=== PATIENT | female | born 1935 | race Caucasian/White ===

== ENCOUNTER → 2016-08-17 | Outpatient (CLI) | payer BC, OTHER ==
[2016-08-17 15:00] LABS: ABSOLUTE EOSINOPHILS # (AUTO) 0.2 10^3/uL (0.0-0.6); ABSOLUTE LYMPHOCYTES (AUTO) 1.3 10^3/uL (0.5-4.7); ABSOLUTE MONOCYTES (AUTO) 0.5 10^3/uL (0.1-1.4); ABSOLUTE NEUT (AUTO) 3.3 10^3/uL (1.7-8.2); BASOPHILS % (AUTO) 0.4 % (0-2); HEMATOCRIT 34.9 % (36.0-47.0); HEMOGLOBIN 11.9 g/dL (12.0-15.5); HGB HCT DIFFERENCE 0.8; LYMPHOCYTES % (AUTO) 24.6 % (13-45); MEAN CORPUSCULAR HEMOGLOBIN 28.4 pg (27.0-33.4); MEAN CORPUSCULAR VOLUME 84 fl (80-97); MONOCYTES % (AUTO) 9.5 % (3-13); RED BLOOD COUNT 4.18 10^6/uL (3.72-5.28); RED CELL DISTRIBUTION WIDTH 16.8 % (11.5-14.0); SEGMENTED NEUTROPHILS % (AUTO) 62.5 % (42-78); WHITE BLOOD COUNT 5.4 10^3/uL (4.0-10.5)
[2016-08-17 15:52] LABS: ERYTHROCYTE SEDIMENTATION RATE 19 mm/hr (0-30)
== END ==
LOC: OD 13:33
PROVIDERS: ATTEND Specialist
DX: R10.9 Unspecified abdominal pain (principal); D50.9 Iron deficiency anemia, unspecified
CPT/HCPCS: 36415; 85025; 85652; 86140

== ENCOUNTER → 2017-05-28 | Outpatient (CLI) | payer BC, OTHER ==
[2017-05-28 10:00] LABS: ALANINE AMINOTRANSFERASE 27 U/L (9-52); ALBUMIN 4.5 g/dL (3.5-5.0); ALKALINE PHOSPHATASE 127 U/L (38-126); ANION GAP 13 (5-19); ASPARTATE AMINO TRANSFERASE 26 U/L (14-36); BILIRUBIN,DIRECT 0.3 mg/dL (0.0-0.4); BILIRUBIN,TOTAL 0.6 mg/dL (0.2-1.3); BLOOD UREA NITROGEN 10 mg/dL (7-20); CALCIUM 9.8 mg/dL (8.4-10.2); CARBON DIOXIDE 29 mmol/L (22-30); CHLORIDE 95 mmol/L (98-107); CREATININE RESULT 0.78 mg/dL (0.52-1.25); Direct HDL 78 mg/dL (>40); GLUCOSE 96 mg/dL (75-110); POTASSIUM 5.4 mmol/L (3.6-5.0); SODIUM 137.2 mmol/L (137-145); TOTAL PROTEIN 7.7 g/dL (6.3-8.2); TRIGLYCERIDES 116 mg/dL (<150)
[2017-05-28 10:11] LABS: DIRECT LDL 120 mg/dL (<100)
== END ==
LOC: OD 08:12
PROVIDERS: ATTEND Internal Medicine
DX: I10 Essential (primary) hypertension (principal); E78.5 Hyperlipidemia, unspecified; R53.83 Other fatigue
CPT/HCPCS: 36415; 80053; 80061; 84443

== ENCOUNTER 2017-12-20 10:09 | Day surgery (SDC) | payer BC, OTHER ==
[~2017-12-20 10:09] MED LIST: BUPIVACAINE HCL 0.75% INJ/PF (7.5 MG/1 ML) 10 ML SDV OD PRN; CHONDR SU A NA/HYALUR INTRAOC KIT (SURGICARE) ONE; EPINEPHRINE INJ/PF 1 MG/1 ML AMPULE ONE; KETOROLAC TROMETHAMINE 0.45% 4 DROP/0.4 ML DROPERETTE OD PRN; LIDOCAINE 1% INJ-PF (10 MG/ML) 30 ML SDV ONE; LIDOCAINE 4% INJ/PF (40 MG/ML) 5 ML AMPUL OD PRN
[2017-12-20] MEDS: TROPICAMIDE 1% OPH SOLN 3 ML OD PRN ×3 (10:35→10:55)
[2017-12-20] MEDS: CYCLOPENTOLATE 0.2%/PHENYLEPHRINE 1% OPH SOLN 2 ML OD PRN ×3 (10:35→10:55)
[2017-12-20] MEDS: TETRACAINE HCL 0.5% OPH SOLN 0.6 ML DROPERETTE OD PRN ×2 (10:36→10:56)
[2017-12-20] MEDS: BESIFLOXACIN HCL 0.6% OPH SUSP 5 ML BOTTLE OD PRN ×3 (10:36→11:38)
[2017-12-20] MEDS ORDERED: FENTANYL CITRATE INJ/PF 100 MCG/2 ML AMPUL ONE (10:42)
[2017-12-20] MEDS ORDERED: MIDAZOLAM 2 MG/2 ML INJ ONE (10:42)
[2017-12-20] MEDS ORDERED: METOPROLOL TARTRATE PF/INJ 5 MG/5 ML SDV IV ONE (12:19)
--- NOTE | 2017-12-20 17:15 | [facility] OPERATIVE REPORT E ---
[facility] Operative Report NAME: CAROL CHAVEZ AGE: 82Y DATE OF SURGERY: 12/20/2017 ROOM: PREOPERATIVE DIAGNOSIS: Cataract right eye. POSTOPERATIVE DIAGNOSIS: Cataract right eye. OPERATION: Phacoemulsification with posterior chamber and intraocular lens, right eye. SURGEON: RELL SALEH M.D. ANESTHESIA: Topical with MAC. INDICATIONS FOR SURGERY: Difficulty seeing faces. Best corrected visual acuity 20/60. PROCEDURE: The patient was brought to the Operating Room and placed on the operative table. Following tetracaine drops, topical anesthesia was administered. This consisted of instrument wipe pledgets soaked in a solution of 4% Xylocaine mixed with 0.75% Marcaine in a 1:2 ratio. A 2 x 1 cm pledget was placed in the superior fornix. A 1 x 1 cm pledget was placed in the inferior fornix. The eye was patched shut for 5 minutes. The patch was removed. The eye was sterilely prepped and draped in the usual manner. Lid speculum was placed in the eye. The pledgets were removed. 4-0 black silk sutures were placed around the superior and the inferior rectus muscles to be used as traction. A conjunctival peritomy was made at the 10 o'clock position. Hemostasis was obtained with bipolar cautery. A posterior limbal groove was created using a crescent knife and dissected anteriorly towards the cornea. A sharp point blade was used to create a paracentesis site at the 2 o'clock position. A 2.4 mm keratome was used to enter the anterior chamber through the groove. Viscoelastic was injected into the anterior chamber. An anterior capsulotomy was performed using Utrata forceps in a capsulorrhexis fashion. Hydrodissection and hydrodelineation were performed. Phacoemulsification was performed in hvehxi-[id number]-gcreczu technique. A total of 1.08 minutes phaco time was used. Following this, the I/A unit was used to remove residual cortex. Viscoelastic was injected into the capsular bag. Intraocular lens model [id number], 22.5 diopters, serial number [id number] was placed in the capsular bag. The I/A unit was used to remove residual viscoelastic. The wound was seen to be watertight under high and low pressure, and no sutures were placed. The intraocular lens was well centered. The pressure was adjusted in the eye to normal pressure. The 4-0 black silk sutures and lid speculum were removed. The eye was shielded after Besivance drops were placed. The patient tolerated the procedure well and was sent to the Recovery Room in good condition. DICTATING PHYSICIAN: RELL SALEH M.D. [id number] PHY#: [id number] ID: [id number] JOB#: [id number] ACCT: [id number] cc:RELL SALEH M.D. >
--- NOTE | 2017-12-20 17:31 | [facility] DISCHARGE SUMMARY E ---
[facility] Discharge Summary NAME: CAROL CHAVEZ AGE: 82Y ADMITTED: 12/20/2017 DISCHARGED: FINAL DIAGNOSIS: HOSPITAL COURSE: Ms. Chavez is an 82-year-old lady who underwent uneventful cataract extraction with intraocular lens implant, right eye on 12/20/2017. She was discharged to home. She was instructed to resume preoperative medications; take Tylenol as needed for discomfort; keep her eyes shielded; to use Besivance, Durezol, and Ilevro at 3 p.m. and 8 p.m. To follow up in my office in 1 day. DICTATING PHYSICIAN: RELL SALEH M.D. [id number] PHY#: [id number] ID: [id number] JOB#: [id number] ACCT: [id number] cc:RELL SALEH M.D. >
== END 2017-12-20 12:30 | disposition home or self-care (01) ==
LOC: SC 10:09
PROVIDERS: ATTEND Ophthalmology
DX: H25.13 Age-related nuclear cataract, bilateral (principal); H35.3131 Nonexudative age-related macular degeneration, bilateral, early dry stage; H01.002 Unspecified blepharitis right lower eyelid; H01.005 Unspecified blepharitis left lower eyelid; H43.812 Vitreous degeneration, left eye; I10 Essential (primary) hypertension; E78.00 Pure hypercholesterolemia, unspecified; M19.90 Unspecified osteoarthritis, unspecified site; J43.9 Emphysema, unspecified; N32.9 Bladder disorder, unspecified; Z79.899 Other long term (current) drug therapy; Z79.51 Long term (current) use of inhaled steroids; Z88.2 Allergy status to sulfonamides; Z91.041 Radiographic dye allergy status
CPT/HCPCS: 66984; V2632; J2250; J3490 ×5; J0171; J3010; 142

== ENCOUNTER → 2018-01-03 | Outpatient (CLI) | payer BC, OTHER ==
[2018-01-03 12:06] LABS: ABSOLUTE LYMPHOCYTES (AUTO) 1.3 10^3/uL (0.5-4.7); ABSOLUTE MONOCYTES (AUTO) 0.5 10^3/uL (0.1-1.4); ABSOLUTE NEUT (AUTO) 3.2 10^3/uL (1.7-8.2); BASOPHILS % (AUTO) 0.8 % (0-2); HEMATOCRIT 37.8 % (36.0-47.0); HEMOGLOBIN 12.5 g/dL (12.0-15.5); LYMPHOCYTES % (AUTO) 26.1 % (13-45); MEAN CORPUSCULAR HEMOGLOBIN 25.6 pg (27.0-33.4); MEAN CORPUSCULAR HGB CONC 33.1 g/dL (32.0-36.0); MEAN CORPUSCULAR VOLUME 78 fl (80-97); MONOCYTES % (AUTO) 9.3 % (3-13); PLATELET COUNT 350 10^3/uL (150-450); RED BLOOD COUNT 4.87 10^6/uL (3.72-5.28); SEGMENTED NEUTROPHILS % (AUTO) 62.8 % (42-78); TOTAL CELLS COUNTED % (AUTO) 100 %
[2018-01-03 12:33] LABS: ALANINE AMINOTRANSFERASE 25 U/L (9-52); ALBUMIN 4.2 g/dL (3.5-5.0); ALKALINE PHOSPHATASE 108 U/L (38-126); ANION GAP 13 (5-19); ASPARTATE AMINO TRANSFERASE 26 U/L (14-36); BILIRUBIN,DIRECT 0.2 mg/dL (0.0-0.4); BILIRUBIN,TOTAL 0.5 mg/dL (0.2-1.3); BLOOD UREA NITROGEN 12 mg/dL (7-20); CALCIUM 9.3 mg/dL (8.4-10.2); CARBON DIOXIDE 29 mmol/L (22-30); CHLORIDE 92 mmol/L (98-107); GLUCOSE 107 mg/dL (75-110); POTASSIUM 4.9 mmol/L (3.6-5.0); SODIUM 134.3 mmol/L (137-145); TOTAL PROTEIN 7.5 g/dL (6.3-8.2)
== END ==
LOC: OD 11:12
PROVIDERS: ATTEND Internal Medicine
DX: I48.91 Unspecified atrial fibrillation (principal); E78.5 Hyperlipidemia, unspecified; R53.83 Other fatigue
CPT/HCPCS: 36415; 80053; 83735; 84443; 85025

== ENCOUNTER 2018-01-08 16:02 | Inpatient (IN) | payer BC, OTHER ==
[2018-01-08 16:22] LABS: ABSOLUTE LYMPHOCYTES (AUTO) 1.6 10^3/uL (0.5-4.7); ABSOLUTE MONOCYTES (AUTO) 0.6 10^3/uL (0.1-1.4); ABSOLUTE NEUT (AUTO) 5.5 10^3/uL (1.7-8.2); BASOPHILS % (AUTO) 0.4 % (0-2); EOSINOPHILS % (AUTO) 0.6 % (0-6); HEMOGLOBIN 11.5 g/dL (12.0-15.5); LYMPHOCYTES % (AUTO) 20.7 % (13-45); MEAN CORPUSCULAR HEMOGLOBIN 25.5 pg (27.0-33.4); MEAN CORPUSCULAR HGB CONC 32.8 g/dL (32.0-36.0); MEAN CORPUSCULAR VOLUME 78 fl (80-97); PLATELET COUNT 350 10^3/uL (150-450); RED BLOOD COUNT 4.51 10^6/uL (3.72-5.28); RED CELL DISTRIBUTION WIDTH 15.9 % (11.5-14.0); SEGMENTED NEUTROPHILS % (AUTO) 70.3 % (42-78); TOTAL CELLS COUNTED % (AUTO) 100 %; WHITE BLOOD COUNT 7.8 10^3/uL (4.0-10.5)
--- NOTE | 2018-01-08 16:30 | ER Document Report ---
ED General - General Stated Complaint: RESPIRATORY DISTRESS Time Seen by Provider: 01/08/18 16:24 Notes: Patient brought in by EMS for shortness of breath and difficulty breathing. Family says this started last night and worse this morning. She has had this in the past. Has been diagnosed with atrial fibrillation. Also recently given a prescription for amoxicillin for bronchitis. Had her medications adjusted a week ago and put on metoprolol and Eliquis. Family says that her heart rate was going very fast in her doctor's office. Patient says she is experiencing nausea but not vomiting. No cough or cold or recent URI symptoms, even though she has a prescription for amoxicillin for URI. While on the way in, patient received sublingual nitro and a nitro patch which is still in place. EMS had her on CPAP on the way here. She has a history of hypertension. No history of congestive heart failure. TRAVEL OUTSIDE OF THE [place] IN LAST 30 DAYS: No - Related Data Allergies/Adverse Reactions: Iodinated Contrast- Oral and IV Dye [IV Dye, Iodine Containing] Allergy (Severe , Verified 01/08/18 16:25) Anaphylaxis Shellfish * [Shellfish] Allergy (Severe, Verified 01/08/18 16:25) Anaphylaxis walnut Allergy (Severe, Verified 01/08/18 16:25) Anaphylaxis Sulfa (Sulfonamide Antibiotics) Allergy (Intermediate, Verified 01/08/18 16:25) Hives meperidine HCl [From Demerol] Allergy (Mild, Verified 01/08/18 16:25) AMS acetaminophen [Acetaminophen] Adverse Reaction (Intermediate, Verified 01/08/18 16:25) nervousness Past Medical History - Social History Smoking Status: Never Smoker Family History: Reviewed & Not Pertinent - Past Medical History Cardiac Medical History: Reports: Hx Atrial Fibrillation - Paroxysmal, Hx Hypertension Denies: Hx Coronary Artery Disease, Hx Heart Attack Pulmonary Medical History: Reports: Hx Bronchitis, Hx COPD Renal/ Medical History: Reports: Hx Kidney Stones Musculoskeletal Medical History: Reports Hx Arthritis - Takes tramadol for joint pain Past Surgical History: Reports: Hx Hysterectomy, Hx Whipple, Other - Cataract surgery about 3 weeks ago. - Immunizations Hx Diphtheria, Pertussis, Tetanus Vaccination: Yes Hx Pneumococcal Vaccination: 06/20/07 Review of Systems - Review of Systems Notes: REVIEW OF SYSTEMS: CONSTITUTIONAL : Denies fever. EENT: Denies eye, ear, nose or mouth or throat pain or other symptoms. CARDIOVASCULAR: Denies chest pain. RESPIRATORY: See HPI. Regular rhythm, sinus rhythm on monitor, at this time. GASTROINTESTINAL: Denies abdominal pain or nausea, vomiting, or diarrhea. GENITOURINARY: Denies difficulty or painful urinating, urinary frequency, blood in urine. MUSCULOSKELETAL: Denies back or neck pain. Denies joint pain or swelling. SKIN: Denies rash or skin lesions. NEUROLOGICAL: Denies LOC or altered mental status. Denies headache. Denies sensory loss or motor deficits. ALL OTHER SYSTEMS REVIEWED AND NEGATIVE. Physical Exam - Vital signs Vitals: Pulse Ox 85 L 01/08/18 16:02 Interpretation: Normal - Notes Notes: PHYSICAL EXAMINATION: GENERAL: Patient arrives on CPAP. Vital signs show an elevated blood pressure for which the patient is already had sublingual nitro and a nitro patch applied. Other vital signs are normal except that when on room air, her O2 sat decompensates. She was placed back on BiPAP. HEAD: Atraumatic, normocephalic. EYES: Pupils equal round and reactive to light, extraocular movements intact. ENT: oropharynx clear without exudates. Moist mucous membranes. NECK: Normal range of motion, supple. LUNGS: Breath sounds clear and equal bilaterally. Just a few scattered rhonchi bilaterally. No labored respirations. No tight wheezes. HEART: Regular rate and rhythm without murmurs. ABDOMEN: Soft, nontender. No guarding or rebound. No masses. BACK: No tenderness throughout entire back. EXTREMITIES: Normal range of motion without pain. +2 pitting edema of the shins bilaterally. Negative Homans. NEUROLOGICAL: Normal speech, normal gait. Normal sensory, motor, and reflex exams. Awake, alert, and oriented x3. Cranial nerves normal. PSYCH: Normal mood, normal affect. SKIN: Warm, dry, no rashes. Course - Vital Signs Vital signs: Temp Pulse Resp BP Pulse Ox 21 H 179/91 H 97 01/08/18 18:47 01/08/18 18:47 01/08/18 18:47 - Laboratory Result Diagrams: 01/08/18 16:08 01/08/18 16:08 Laboratory results interpreted by me: 01/08/18 01/08/18 01/08/18 16:08 16:08 16:08 Hgb 11.5 L Hct 35.0 L MCV 78 L MCH 25.5 L RDW 15.9 H Sodium 118.3 L* Chloride 81 L Est GFR ( Amer) 53 L Est GFR (Non-Af Amer) 44 L Glucose 152 H AST 55 H ALT 74 H NT-Pro-B Natriuret Pep 671 H - Diagnostic Test Radiology results interpreted by me: 01/08/18 18:24 Chest x-ray shows airspace disease which radiologist says could be pneumonia or could be congestive heart failure. - EKG Interpretation by Me EKG shows normal: Sinus rhythm Rate: Normal Rhythm: NSR Critical Care Note - Critical Care Note Total time excluding time spent on procedures (mins): 40 Discharge - Discharge Clinical Impression: Respiratory insufficiency/failure, Hyponatremia, Hypertension, Hypoxia Condition: Serious Disposition: ADMITTED INPATIENT Admitting Provider: Hospitalist Unit Admitted: [facility]
[2018-01-08 16:36] LABS: ALANINE AMINOTRANSFERASE 74 U/L (9-52); ALBUMIN 3.8 g/dL (3.5-5.0); ALKALINE PHOSPHATASE 115 U/L (38-126); ANION GAP 15 (5-19); ASPARTATE AMINO TRANSFERASE 55 U/L (14-36); BILIRUBIN,DIRECT 0.2 mg/dL (0.0-0.4); BILIRUBIN,TOTAL 0.5 mg/dL (0.2-1.3); BLOOD UREA NITROGEN 20 mg/dL (7-20); CALCIUM 8.4 mg/dL (8.4-10.2); CARBON DIOXIDE 22 mmol/L (22-30); CHLORIDE 81 mmol/L (98-107); CREATINE KINASE 64 U/L (30-135); GLUCOSE 152 mg/dL (75-110); TOTAL PROTEIN 6.9 g/dL (6.3-8.2)
[2018-01-08 16:45] LABS: SODIUM 118.3 mmol/L (137-145)
[2018-01-08 16:47] LABS: CREATINE KINASE MB 1.57 ng/mL (<4.55); NT PRO BNP 671 pg/mL (<450)
[2018-01-08 16:49] LABS: TROPONIN I < 0.012 ng/mL
--- NOTE | 2018-01-08 16:50 | RADIOLOGY REPORT (SQ) ---
EXAM DESCRIPTION: CHEST SINGLE VIEW COMPLETED DATE/TIME: 01/08/2018 4:42 pm REASON FOR STUDY: sob COMPARISON: 12/08/2014. EXAM PARAMETERS: NUMBER OF VIEWS: One view. TECHNIQUE: Single frontal radiographic view of the chest acquired. RADIATION DOSE: NA LIMITATIONS: None. FINDINGS: LUNGS AND PLEURA: Diffuse bilateral parenchymal airspace disease. No large pleural effusi on. No pneumothorax. MEDIASTINUM AND HILAR STRUCTURES: No masses. Contour normal. HEART AND VASCULAR STRUCTURES: Heart normal in size. Normal vasculature. BONES: No acute findings. HARDWARE: None in the chest. OTHER: No other significant finding. IMPRESSION: DIFFUSE BILATERAL PARENCHYMAL AIRSPACE DISEASE. POSSIBLY DUE TO PNEUMONIA. PULMONARY E ARIES CANNOT BE EXCLUDED. TECHNICAL DOCUMENTATION: JOB ID: [id number] [employer]- All Rights Reserved Reading location - IP/workstation name: [email or web address]
[2018-01-08] MEDS ORDERED: FUROSEMIDE INJ/PF 40 MG/4 ML SDV IV ONE (17:51)
[2018-01-08] MEDS ORDERED: CEFTRIAXONE INJ 1000 MG VIAL IV ONE (17:52)
[2018-01-08] MEDS ORDERED: TRAMADOL HCL 50 MG TABLET PO ONE (18:20)
[2018-01-08] MEDS ORDERED: DEXTROSE 5%-NORMAL SALINE 1,000 ML IV ONE (18:29)
[2018-01-08] MEDS ORDERED: NORMAL SALINE 1000 ML 1,000 ML IV ONE ×2 (19:06→20:10)
[2018-01-08 19:10] LABS: APPEARANCE,URINE SLIGHTLY-CLOUDY; BILIRUBIN,URINE NEGATIVE (NEGATIVE); COLOR,URINE YELLOW; GLUCOSE, URINE NEGATIVE (NEGATIVE); KETONES,URINE NEGATIVE (NEGATIVE); LEUKOCYTE ESTERASE,URINE TRACE (NEGATIVE); NITRITE,URINE NEGATIVE (NEGATIVE); PROTEIN,URINE 30 mg/dL (NEGATIVE); URINE SPECIFIC GRAVITY 1.013; UROBILINOGEN,URINE NEGATIVE mg/dL (<2.0)
[2018-01-08] MEDS ORDERED: ACETAMINOPHEN 325 MG TABLET PO PRN (20:02)
[2018-01-08] MEDS ORDERED: TRAMADOL HCL 50 MG TABLET PO PRN (20:11)
[2018-01-08] MEDS: IPRATROPIUM/ALBUTEROL 0.5-2.5 MG/3 ML AMPUL NEB PRN (20:54)
--- NOTE | 2018-01-08 21:04 | PDOC H&P ---
History of Present Illness Admission Date/PCP: 01/08/18 18:43 ZO GIBBS MD Patient complains of: Shortness of breath History of Present Illness: CAROL CHAVEZ is a 82 year old female who is accompanied by her sisters at the bedside. Tells me that she started with shortness of breath 3 days ago that has been getting worse over time associated with wheezing for 1 day, nausea but no vomiting. Denies cough, phlegm, sore throat, cold symptoms. Denies fever or chills. She has received recently a prescription for amoxicillin for bronchitis. Upon arrival of the EMS to her house she was initiated on CPAP documentation of the initial O2 sat on RA 85%, on respiratory distress. By the time went to see her she was on BiPAP saturating 99%, comfortable. Chest x-ray with possible bilateral infiltrates and questionable vascular congestion, BNP 671, no history of CHF. Troponins 1 negative. Significant hyponatremia and hypochloremia. Past Medical History Cardiac Medical History: Reports: Atrial Fibrillation - Paroxysmal Eliquis, Hypertension Denies: Coronary Artery Disease, Myocardial Infarction Pulmonary Medical History: Reports: Bronchitis, Chronic Obstructive Pulmonary Disease (COPD) Denies: Asthma, Pneumonia Neurological Medical History: Denies: Seizures GI Medical History: Reports: Gastroesophageal Reflux Disease Musculoskeltal Medical History: Reports: Arthritis - Takes tramadol for joint pain Hematology: Reports: Anemia Denies: Sickle Cell Disease Past Surgical History Past Surgical History: Reports: Hysterectomy, Other - Cataract surgery about 3 weeks ago. Back surgery, Bladder Surgery Denies: Amputation Social History Information Source: Patient, Relative Smoking Status: Never Smoker Frequency of Alcohol Use: None Hx Recreational Drug Use: No Past Social History Note: She lives in a trailer by herself but goes at night stays with her sister who is at the bedside. Independent with her ADLs. Family History Family History: Reviewed & Not Pertinent Family History: Mother at 88 years old history of heart trouble and emphysema. One sister with diabetes and hypertension. One sister with diabetes and heart problems. Parental Family History Reviewed: Yes - Father at 72 y with myocardial infarction, history of brain aneurism Children Family History Reviewed: NA Sibling(s) Family History Reviewed.: NA Medication/Allergy Home Medications: Tramadol HCl [Ultram] 100 mg PO TID PRN 08/20/14 Amox Tr/Potassium Clavulanate [Augmentin 875-125 mg Tablet] 1 tab PO BID PRN 06/04 Apixaban [Eliquis 5 mg Tablet] 5 mg PO DAILY 01/08/18 Metoprolol Succinate 50 mg PO BID 01/08/18 Allergies/Adverse Reactions: Iodinated Contrast- Oral and IV Dye [IV Dye, Iodine Containing] Allergy (Severe , Verified 01/08/18 16:25) Anaphylaxis Shellfish * [Shellfish] Allergy (Severe, Verified 01/08/18 16:25) Anaphylaxis walnut Allergy (Severe, Verified 01/08/18 16:25) Anaphylaxis Sulfa (Sulfonamide Antibiotics) Allergy (Intermediate, Verified 01/08/18 16:25) Hives meperidine HCl [From Demerol] Allergy (Mild, Verified 01/08/18 16:25) AMS acetaminophen [Acetaminophen] Adverse Reaction (Intermediate, Verified 01/08/18 16:25) nervousness Review of Systems Review of Systems: As outlined in the HPI, all others negative Physical Exam Vital Signs: Temp Pulse Resp BP Pulse Ox 19 161/87 H 100 01/08/18 20:02 01/08/18 20:02 01/08/18 20:02 Additional comments: General appearance: Elderly. Well-developed, well-nourished, alert and cooperative, and appears to be in no acute distress. Wearing BiPAP Head: Normocephalic Eyes: PEERL, EOMI, vision is grossly intact. Ears: External auditory canal and tympanic membranes clear, hearing severely decreased. Nose: No nasal discharge. Throat: Oral cavity and pharynx normal. No inflammation, swelling, exudate or lesions. Neck: Neck supple, nontender without lymphadenopathy, masses or thyromegaly. Cardiac: Normal S1 and S2. No S3, S4 or murmurs. Rhythm is regular. There is no peripheral edema, cyanosis or pallor. Extremities are warm and well perfused. Capillary refill is less than 2 seconds. No carotid bruits. Lungs: Clear to auscultation and percussion with by basilar crakles and diffused wheezing, no appreciated rhonchi or diffused diminished breath sounds. Not using accessory muscles. Abdomen: Positive bowel sounds. Soft. Nondistended, nontender. No guarding or rebound. No masses. No hepatosplenomegaly Extremities: No significant deformity or joint abnormality. No edema. Peripheral pulses intact. Bilateral lower extremity severe varicosities. Neurological: Cranial nerves II through XII grossly intact. Strength and sensation symmetric and intact throughout. Reflexes 2+ throughout. Skin: Skin normal color, texture and turgor with no lesions or eruptions, warm and dry. Psychiatric: The mental examination revealed the patient was oriented to person , place, and time. The patient was able to demonstrate good judgment on recent , without hallucinations, abnormal affect or abnormal behaviors. Results Laboratory Results: 01/08/18 01/08/18 16:08 16:08 WBC 7.8 Hgb 11.5 L Hct 35.0 L Plt Count 350 Seg Neutrophils % 70.3 Sodium 118.3 L* Potassium 5.0 Chloride 81 L Anion Gap 15 BUN 20 Creatinine 1.18 Est GFR ( Amer) 53 L Est GFR (Non-Af Amer) 44 L Glucose 152 H Total Bilirubin 0.5 AST 55 H ALT 74 H Alkaline Phosphatase 115 Creatine Kinase 64 Total Protein 6.9 Albumin 3.8 Impressions: Chest X-Ray 01/08/18 16:13 IMPRESSION: DIFFUSE BILATERAL PARENCHYMAL AIRSPACE DISEASE. POSSIBLY DUE TO PNEUMONIA. PULMONARY EDEMA CANNOT BE EXCLUDED. Assessment & Plan - Diagnosis (1) CAP (community acquired pneumonia) Qualifiers: Laterality: unspecified laterality Qualified Code(s): J18.9 - Pneumonia, unspecified organism Is this a current diagnosis for this admission?: Yes Plan: Patient has bilateral infiltrates infectious in etiology. Patient was criteria for community-acquired pneumonia will continue the patient with IV antibiotics, IV Rocephin and IV azithromycin. Please follow blood cultures. Sputum culture has been ordered. Continue with BiPAP. DuoNeb nebulizer treatments as needed. Solu-Medrol 60 mg every 8 hours and we are going to check blood sugars twice a day. Impression and order for a CT of the chest to clarify the diagnosis as pulmonary edema/congestion is a differential. (2) Hyponatremia Is this a current diagnosis for this admission?: Yes Plan: Sodium 118, severe hyponatremia, the patient does not have any hyponatremia symptoms at this time. Sending serum and urine osmolarity, urine sodium and creatinine. TSH. I will send fluids with normal saline at 75 cc/h and he will have the results of the CT of the chest. Sodium q 4 hours. (3) Hypertension Is this a current diagnosis for this admission?: Yes Plan: Uncontrolled hypertension in the emergency department. BP 174/91, likely missed her night medications and I will resume. I will place the patient on IV hydralazine as needed (4) Acute respiratory failure with hypoxia Is this a current diagnosis for this admission?: Yes Plan: Upon arrival to our facility documented oxygen saturation of 85% on room air which was increased to 99% on BiPAP. We are going to repeat an ABG in the morning. Patient not in acute distress at this time. (5) Elevated brain natriuretic peptide (BNP) level Is this a current diagnosis for this admission?: Yes Plan: BNP 671, possible new onset CHF. I morning. Discuss results and decide if the place the patient on IV Lasix for now, to me patient is dehydrated and needs IV fluids. (6) Acute renal failure Is this a current diagnosis for this admission?: Yes Plan: and creatinine 1.19, creatinine was 0.75 a few days ago. Before I feel the patient is very dehydrated, we will keep her on IV fluids overnight CT of the chest shows pulmonary edema/congestion. Avoid nephrotoxic drugs. We will reassess the panel in the morning. - Time Time Spent: 30 to 50 Minutes - Inpatient Certification Based on my medical assessment, after consideration of the patient's comorbidities, presenting symptoms, or acuity I expect that the services needed warrant INPATIENT care.: Yes I certify that my determination is in accordance with my understanding of Medicare's requirements for reasonable and necessary INPATIENT services [42 CFR 412.3e].: Yes Medical Necessity: Need for IV Antibiotics, Risk of Diagnosis Which Will Require Inpatient Eval/Care/Monitoring
[2018-01-08] MEDS ORDERED: HYDRALAZINE HCL INJ/PF 20 MG/1 ML SDV IV PRN (21:05)
--- NOTE | 2018-01-08 21:13 | RADIOLOGY REPORT (SQ) ---
EXAM DESCRIPTION: CT CHEST WITHOUT COMPLETED DATE/TIME: 01/08/2018 8:18 pm REASON FOR STUDY: pna vs chf COMPARISON: Chest x-ray 01/08/2018. TECHNIQUE: CT scan performed of the chest without intravenous contrast. Images reviewed with lung, soft tissue and bone windows. Reconstructed coronal and sagittal MPR images reviewed. All images st ored on PACS. All CT scanners at this facility use dose modulation, iterative reconstruction, and/or weight based d osing when appropriate to reduce radiation dose to as low as reasonably achievable (ALARA). [facility]: Dose Right [facility]: CareDose [facility]: Dose Right [facility]: Teradose 4D [facility]: [employer] RADIATION DOSE: CT Rad equipment meets quality standard of care and radiation dose reduction techniq ues were employed. CTDIvol: 11.6 mGy. DLP: 440 mGy-cm. mGy. LIMITATIONS: There is respiratory motion artifact. FINDINGS: LUNGS AND PLEURA: The evaluation of the lung parenchyma is suboptimal due to extensive mot ion artifact. There are small bilateral pleural effusions. There patchy bilateral ground-glass opac ities. Diffuse septal thickening is suggestive of interstitial edema. No pneumothorax. HILAR AND MEDIASTINAL STRUCTURES: Enlarged mediastinal lymph nodes measuring up to 17 mm in short axi s. Limited evaluation for hilar adenopathy in the absence of intravenous contrast. HEART AND VASCULAR STRUCTURES: No thoracic aortic aneurysm. The heart is mildly enlarged. No perica rdial effusion. UPPER ABDOMEN: No significant findings. Limited exam. BONES: Multilevel degenerative changes are noted at the spine. HARDWARE: None in the chest. IMPRESSION: Study degraded by motion artifact. Small bilateral pleural effusions. Mild cardiomegal y. Interstitial edema. Mild mediastinal adenopathy. Patchy bilateral ground-glass opacities may be secondary to pulmonary edema, hemorrhage or pneumonia. Radiographic followup to resolution recommen ded. TECHNICAL DOCUMENTATION: JOB ID: [id number] [place]- Quality ID # [id number]: Final reports with documentation of one or more dose reduction techniques (e.g., Au tomated exposure control, adjustment of the mA and/or kV according to patient size, use of iterative reconstruction technique) 2010 [employer]- All Rights Reserved Reading location - IP/workstation name: [email or web address]
[2018-01-08] MEDS: METHYLPREDNISOLONE INJ 125 MG/2 ML SDV IV SCH (21:44)
[2018-01-08 21:57] LABS: OSMOLALITY,URINE 373 mOsm/kg (300-900)
[2018-01-08] MEDS ORDERED: GUAIFENESIN 600 MG TABLET.SA PO SCH (22:00)
[2018-01-08 22:08] LABS: URINE CREATININE 87.4 mg/dL (15-278)
[2018-01-08 22:12] LABS: URINE SODIUM < 5 mmol/L (30-90)
--- NOTE | 2018-01-08 22:52 | EKG REPORT ---
SEVERITY:- ABNORMAL ECG - SINUS RHYTHM ATRIAL PREMATURE COMPLEX FIRST DEGREE AV BLOCK PROBABLE LEFT ATRIAL ABNORMALITY BORDERLINE T ABNORMALITIES, ANT-LAT LEADS : Confirmed by: José Miguel Norwood 08-Jan-2018 22:52:05
[2018-01-09 03:25] LABS: ABSOLUTE LYMPHOCYTES (AUTO) 0.5 10^3/uL (0.5-4.7); ABSOLUTE MONOCYTES (AUTO) 0.1 10^3/uL (0.1-1.4); ABSOLUTE NEUT (AUTO) 7.9 10^3/uL (1.7-8.2); BASOPHILS % (AUTO) 0.1 % (0-2); HEMATOCRIT 30.8 % (36.0-47.0); HEMOGLOBIN 10.2 g/dL (12.0-15.5); LYMPHOCYTES % (AUTO) 5.5 % (13-45); MEAN CORPUSCULAR HEMOGLOBIN 25.4 pg (27.0-33.4); MEAN CORPUSCULAR HGB CONC 33.2 g/dL (32.0-36.0); MEAN CORPUSCULAR VOLUME 77 fl (80-97); MONOCYTES % (AUTO) 1.5 % (3-13); PLATELET COUNT 289 10^3/uL (150-450); RED BLOOD COUNT 4.03 10^6/uL (3.72-5.28); RED CELL DISTRIBUTION WIDTH 15.5 % (11.5-14.0); SEGMENTED NEUTROPHILS % (AUTO) 92.9 % (42-78); TOTAL CELLS COUNTED % (AUTO) 100 %; WHITE BLOOD COUNT 8.4 10^3/uL (4.0-10.5)
[2018-01-09 03:45] LABS: ANION GAP 8 (5-19); BLOOD UREA NITROGEN 17 mg/dL (7-20); CALCIUM 8.1 mg/dL (8.4-10.2); CARBON DIOXIDE 25 mmol/L (22-30); CHLORIDE 88 mmol/L (98-107); GLUCOSE 142 mg/dL (75-110); POTASSIUM 4.8 mmol/L (3.6-5.0); SODIUM 121.3 mmol/L (137-145)
[2018-01-09] MEDS: METHYLPREDNISOLONE INJ 125 MG/2 ML SDV IV SCH ×3 (05:15→22:20)
[2018-01-09 06:20] LABS: ARTERIAL BLOOD BASE EXCESS -0.1 mmol/L; ARTERIAL BLOOD FIO2 35%; ARTERIAL BLOOD H2CO3 1.19 mmol/L (1.05-1.35); ARTERIAL BLOOD HCO3 24.5 mmol/L (20-26); ARTERIAL BLOOD O2 SATURATION 98.1 % (94-98); ARTERIAL BLOOD PCO2 39.6 mmHg (35-45); ARTERIAL BLOOD PH 7.41 (7.35-7.45); ARTERIAL BLOOD PO2 110.8 mmHg (80-100); ARTERIAL BLOOD TOTAL CO2 25.7 mmol/L (21-25)
[2018-01-09] MEDS ORDERED: APIXABAN 5 MG TABLET PO SCH (10:00)
[2018-01-09] MEDS ORDERED: METOPROLOL SUCCINATE 50 MG TAB.SR.24H PO SCH (10:00)
[2018-01-09] MEDS ORDERED: CEFTRIAXONE 1 GM/D5W RTU 1 GM/50 ML RTUPB IV SCH (10:00)
[2018-01-09] MEDS ORDERED: ENOXAPARIN SODIUM INJ 40 MG/0.4 ML DISP.SYRIN SUBCUT SCH (10:00)
[2018-01-09] MEDS: AZITHROMYCIN 500 MG in DEXTROSE 5%-WATER 250 ML IV SCH (10:33)
[2018-01-09] MEDS: FUROSEMIDE INJ/PF 40 MG/4 ML SDV IV SCH ×2 (10:43→22:20)
[2018-01-09] MEDS: TRAMADOL HCL 50 MG TABLET PO PRN ×2 (13:16→23:53)
[2018-01-09] MEDS ORDERED: POLYETHYLENE GLYCOL 3350 POWDER 17 GM/1 PACKET PO PRN (15:38)
[2018-01-09] MEDS ORDERED: ONDANSETRON 4 MG TAB.RAPDIS PO PRN (15:38)
[2018-01-09] MEDS ORDERED: LORAZEPAM 0.5 MG TABLET PO PRN (15:38)
[2018-01-09] MEDS ORDERED: FLUTICASONE NASAL SPRAY 50 MCG/SPRY 120 SPRAY/16 GM NASL PRN (15:38)
--- NOTE | 2018-01-09 15:38 | PDOC PROGRESS REPORT ---
Subjective Progress Note for:: 01/09/18 Subjective:: Patient seen resting in bed. She is awake, alert and oriented x 3. Patient is resting in bed. She denies any chest pain, shortness of breath or dyspnea. She denies any nausea, vomiting or diarrhea. She denies any diarrhea. She is complaining of a headache. She denies any other complaints. Remaining review of systems are negative Reason For Visit: COMMUNITY ACQUIRE PNEUMONIA Physical Exam Vital Signs: Temp Pulse Resp BP Pulse Ox 97.3 F 72 22 H 150/75 H 100 01/09/18 13:02 01/09/18 13:02 01/09/18 13:02 01/09/18 13:02 01/09/18 13:02 Pulse Oximeter Continuous Start: 01/08/18 20: 02 Freq: RTQ4 Status: Active Document 01/09/18 00:00 STI (Rec: 01/09/18 00:40 STI [email or web address]) Pulse Oximetry Assessment Oxygen Saturation (92-100) 100 Oxygen Delivery Method Bi-pap Fraction of Inspired Oxygen (FIO2) 40 Equipment Usage Equipment Standby Continuous SpO2 Machine # ED MONITOR Intake & Output 01/08/18 01/09/18 01/10/18 06:59 06:59 06:59 Output Total 3000 Balance -3000 General appearance: PRESENT: no acute distress, well-developed, well-nourished Head exam: PRESENT: atraumatic, normocephalic Eye exam: PRESENT: conjunctiva pink, EOMI, PERRLA. ABSENT: scleral icterus Mouth exam: PRESENT: moist, neck supple, tongue midline Teeth exam: PRESENT: poor dentation Neck exam: ABSENT: carotid bruit, JVD, lymphadenopathy, thyromegaly Respiratory exam: PRESENT: crackles - bilateral bases, symmetrical, unlabored Cardiovascular exam: PRESENT: RRR. ABSENT: diastolic murmur, rubs, systolic murmur Pulses: PRESENT: normal carotid pulses, normal radial pulses Vascular exam: PRESENT: normal capillary refill GI/Abdominal exam: PRESENT: normal bowel sounds, soft. ABSENT: distended, guarding, mass, organolmegaly, rebound, tenderness Rectal exam: PRESENT: deferred Extremities exam: PRESENT: full ROM. ABSENT: calf tenderness, clubbing, pedal edema Musculoskeletal exam: PRESENT: ambulatory, full ROM, normal inspection Neurological exam: PRESENT: alert, awake, oriented to person, oriented to place , oriented to time, oriented to situation, CN II-XII grossly intact. ABSENT: motor sensory deficit Psychiatric exam: PRESENT: appropriate affect, normal mood. ABSENT: homicidal ideation, suicidal ideation Skin exam: PRESENT: dry, intact, warm. ABSENT: cyanosis, rash Results Laboratory Results: 01/09/18 03:00 01/09/18 11:39 01/08/18 01/08/18 01/09/18 21:10 23:00 03:00 WBC 8.4 RBC 4.03 Hgb 10.2 L Hct 30.8 L MCV 77 L MCH 25.4 L MCHC 33.2 RDW 15.5 H Plt Count 289 Seg Neutrophils % 92.9 H Lymphocytes % 5.5 L Monocytes % 1.5 L Eosinophils % 0.0 Basophils % 0.1 Absolute Neutrophils 7.9 Absolute Lymphocytes 0.5 Absolute Monocytes 0.1 Absolute Eosinophils 0.0 Absolute Basophils 0.0 Carbonic Acid HCO3/H2CO3 Ratio ABG pH ABG pCO2 ABG pO2 ABG HCO3 ABG O2 Saturation ABG Base Excess FiO2 Sodium 117.5 L* Potassium Chloride Carbon Dioxide Anion Gap BUN Creatinine Est GFR ( Amer) Est GFR (Non-Af Amer) Glucose Serum Osmolality 250 L Calcium 01/09/18 01/09/18 01/09/18 03:00 05:50 08:07 WBC RBC Hgb Hct MCV MCH MCHC RDW Plt Count Seg Neutrophils % Lymphocytes % Monocytes % Eosinophils % Basophils % Absolute Neutrophils Absolute Lymphocytes Absolute Monocytes Absolute Eosinophils Absolute Basophils Carbonic Acid 1.19 HCO3/H2CO3 Ratio 20:1 ABG pH 7.41 ABG pCO2 39.6 ABG pO2 110.8 H ABG HCO3 24.5 ABG O2 Saturation 98.1 H ABG Base Excess -0.1 FiO2 35% Sodium 121.3 L 127.5 L Potassium 4.8 Chloride 88 L Carbon Dioxide 25 Anion Gap 8 BUN 17 Creatinine 0.97 Est GFR ( Amer) > 60 Est GFR (Non-Af Amer) 55 L Glucose 142 H Serum Osmolality Calcium 8.1 L 01/09/18 11:39 WBC RBC Hgb Hct MCV MCH MCHC RDW Plt Count Seg Neutrophils % Lymphocytes % Monocytes % Eosinophils % Basophils % Absolute Neutrophils Absolute Lymphocytes Absolute Monocytes Absolute Eosinophils Absolute Basophils Carbonic Acid HCO3/H2CO3 Ratio ABG pH ABG pCO2 ABG pO2 ABG HCO3 ABG O2 Saturation ABG Base Excess FiO2 Sodium 127.9 L Potassium Chloride Carbon Dioxide Anion Gap BUN Creatinine Est GFR ( Amer) Est GFR (Non-Af Amer) Glucose Serum Osmolality Calcium 01/08/18 01/09/18 01/09/18 21:10 03:00 11:39 Troponin I < 0.012 < 0.012 < 0.012 Impressions: Chest X-Ray 01/08/18 16:13 IMPRESSION: DIFFUSE BILATERAL PARENCHYMAL AIRSPACE DISEASE. POSSIBLY DUE TO PNEUMONIA. PULMONARY EDEMA CANNOT BE EXCLUDED. Chest CT 01/08/18 19:30 IMPRESSION: Study degraded by motion artifact. Small bilateral pleural effusions. Mild cardiomegaly. Interstitial edema. Mild mediastinal adenopathy. Patchy bilateral ground-glass opacities may be secondary to pulmonary edema, hemorrhage or pneumonia. Radiographic followup to resolution recommended. Assessment & Plan - Diagnosis (1) Acute respiratory failure with hypoxia Is this a current diagnosis for this admission?: Yes Plan: Patient was found to have SPO2 of 85% on room air. CT showed bilateral infiltrates and possible fluid volume overload with elevated NTBNP. She has no history of chf. She did diurese 3 liters from first dose of IV lasix. Will continue broad spectrum antibiotics (2) CAP (community acquired pneumonia) Qualifiers: Laterality: unspecified laterality Qualified Code(s): J18.9 - Pneumonia, unspecified organism Is this a current diagnosis for this admission?: Yes Plan: As above (3) Elevated brain natriuretic peptide (BNP) level Is this a current diagnosis for this admission?: Yes Plan: Diuresed well (4) Hypertension Qualifiers: Hypertension type: essential hypertension Qualified Code(s): I10 - Essential (primary) hypertension Is this a current diagnosis for this admission?: Yes Plan: She is normotensive on current medications (5) Hyponatremia Is this a current diagnosis for this admission?: Yes - Time Time Spent with patient: 25-34 minutes Total Critical Time (Minutes): 20 Medications reviewed and adjusted accordingly: Yes - Inpatient Certification Based on my medical assessment, after consideration of the patient's comorbidities, presenting symptoms, or acuity I expect that the services needed warrant INPATIENT care.: Yes I certify that my determination is in accordance with my understanding of Medicare's requirements for reasonable and necessary INPATIENT services [42 CFR 412.3e].: Yes Medical Necessity: Failure to Improve With Outpatient Therapy
[2018-01-09] MEDS ORDERED: KETOROLAC TROMETHAMINE INJ/PF 30 MG/1 ML SDV IV ONE (16:00)
[2018-01-09] MEDS: APIXABAN 5 MG TABLET PO SCH (22:22)
[2018-01-09] MEDS: METOPROLOL SUCCINATE 50 MG TAB.SR.24H PO SCH (22:23)
[2018-01-09] MEDS: GUAIFENESIN 600 MG TABLET.SA PO SCH (22:23)
[2018-01-10] MEDS: METHYLPREDNISOLONE INJ 125 MG/2 ML SDV IV SCH (05:26)
[2018-01-10] MEDS: LANSOPRAZOLE 30 MG TAB.RAP.DR PO SCH (08:41)
[2018-01-10] MEDS: IPRATROPIUM/ALBUTEROL 0.5-2.5 MG/3 ML AMPUL NEB PRN (09:11)
[2018-01-10] MEDS ORDERED: CEFTRIAXONE SODIUM 1,000 MG in DEXTROSE 5%-WATER 50 ML IV SCH (10:00)
[2018-01-10] MEDS: APIXABAN 5 MG TABLET PO SCH ×2 (10:56→21:17)
[2018-01-10] MEDS: METOPROLOL SUCCINATE 50 MG TAB.SR.24H PO SCH ×2 (10:56→21:17)
[2018-01-10] MEDS: GUAIFENESIN 600 MG TABLET.SA PO SCH (10:57)
[2018-01-10] MEDS: FUROSEMIDE INJ/PF 40 MG/4 ML SDV IV SCH (10:57)
[2018-01-10] MEDS: AZITHROMYCIN 500 MG in DEXTROSE 5%-WATER 250 ML IV SCH (12:38)
[2018-01-10] MEDS ORDERED: MAGNESIUM CITRATE 296 ML BOTTLE PO ONE (13:00)
[2018-01-10] MEDS: TRAMADOL HCL 50 MG TABLET PO PRN (14:10)
--- NOTE | 2018-01-10 16:45 | PDOC PROGRESS REPORT ---
Subjective Progress Note for:: 01/10/18 Subjective:: The patient states to feel better. She is much less short of breath. She wants to know when she can go home. Reason For Visit: COMMUNITY ACQUIRE PNEUMONIA Physical Exam Vital Signs: Temp Pulse Resp BP Pulse Ox 97.3 F 68 16 130/73 H 97 01/10/18 07:32 01/10/18 14:00 01/10/18 09:11 01/10/18 07:32 01/10/18 09:11 Pulse Oximeter Continuous Start: 01/08/18 20: 02 Freq: RTQ4 Status: Complete Document 01/09/18 16:00 LDA (Rec: 01/09/18 16:42 LDA [id number]) Pulse Oximetry Assessment Equipment Usage Equipment Discontinued Continuous SpO2 Machine # xx Intake & Output 01/09/18 01/10/18 01/11/18 06:59 06:59 06:59 Intake Total 590 397 Output Total 3000 900 200 Balance -3000 -310 197 Weight 71 kg General appearance: PRESENT: mild distress Head exam: PRESENT: atraumatic Eye exam: PRESENT: conjunctiva pink Neck exam: ABSENT: carotid bruit, JVD Respiratory exam: PRESENT: rhonchi. ABSENT: rales, wheezes Cardiovascular exam: PRESENT: RRR, +S1, +S2 GI/Abdominal exam: PRESENT: normal bowel sounds, soft Extremities exam: PRESENT: full ROM Musculoskeletal exam: PRESENT: ambulatory Neurological exam: PRESENT: alert, awake Results Laboratory Results: 01/09/18 03:00 01/09/18 19:13 01/09/18 19:13 Sodium 126.2 L 01/08/18 01/09/18 01/09/18 21:10 03:00 11:39 Troponin I < 0.012 < 0.012 < 0.012 Impressions: Chest X-Ray 01/08/18 16:13 IMPRESSION: DIFFUSE BILATERAL PARENCHYMAL AIRSPACE DISEASE. POSSIBLY DUE TO PNEUMONIA. PULMONARY EDEMA CANNOT BE EXCLUDED. Chest CT 01/08/18 19:30 IMPRESSION: Study degraded by motion artifact. Small bilateral pleural effusions. Mild cardiomegaly. Interstitial edema. Mild mediastinal adenopathy. Patchy bilateral ground-glass opacities may be secondary to pulmonary edema, hemorrhage or pneumonia. Radiographic followup to resolution recommended. Assessment & Plan - Diagnosis (1) Atrial fibrillation Qualifiers: Atrial fibrillation type: paroxysmal Qualified Code(s): I48.0 - Paroxysmal atrial fibrillation Is this a current diagnosis for this admission?: Yes Plan: This is new onset. Patient is presently in normal sinus rhythm on metoprolol and Eliquis (2) Acute respiratory failure with hypoxia Is this a current diagnosis for this admission?: Yes Plan: We will slowly reduce the amount of medications that the patient has been started on in the emergency room (3) Hypertension Qualifiers: Hypertension type: essential hypertension Qualified Code(s): I10 - Essential (primary) hypertension Is this a current diagnosis for this admission?: Yes Plan: Continue current treatment (4) Hyponatremia Is this a current diagnosis for this admission?: Yes Plan: Possibly related to diuretics (5) Hypoxia Is this a current diagnosis for this admission?: Yes Plan: Possibly related to fluid overload and new onset atrial fibrillation
[2018-01-10] MEDS ORDERED: PREDNISONE 10 MG TABLET PO SCH (18:00)
[2018-01-11] MEDS: TRAMADOL HCL 50 MG TABLET PO PRN ×2 (00:13→18:30)
[2018-01-11 05:19] LABS: ABSOLUTE BASOPHILS # (AUTO) 0.1 10^3/uL (0.0-0.2); ABSOLUTE LYMPHOCYTES (AUTO) 1.6 10^3/uL (0.5-4.7); ABSOLUTE MONOCYTES (AUTO) 0.7 10^3/uL (0.1-1.4); ABSOLUTE NEUT (AUTO) 10.5 10^3/uL (1.7-8.2); BASOPHILS % (AUTO) 0.4 % (0-2); EOSINOPHILS % (AUTO) 0.2 % (0-6); HEMATOCRIT 30.9 % (36.0-47.0); HEMOGLOBIN 10.4 g/dL (12.0-15.5); LYMPHOCYTES % (AUTO) 12.3 % (13-45); MEAN CORPUSCULAR HEMOGLOBIN 25.7 pg (27.0-33.4); MEAN CORPUSCULAR HGB CONC 33.7 g/dL (32.0-36.0); MEAN CORPUSCULAR VOLUME 76 fl (80-97); MONOCYTES % (AUTO) 5.5 % (3-13); PLATELET COUNT 296 10^3/uL (150-450); RED BLOOD COUNT 4.06 10^6/uL (3.72-5.28); SEGMENTED NEUTROPHILS % (AUTO) 81.6 % (42-78); TOTAL CELLS COUNTED % (AUTO) 100 %; WHITE BLOOD COUNT 12.9 10^3/uL (4.0-10.5)
[2018-01-11 05:41] LABS: ALANINE AMINOTRANSFERASE 50 U/L (9-52); ALBUMIN 3.2 g/dL (3.5-5.0); ALKALINE PHOSPHATASE 92 U/L (38-126); ANION GAP 8 (5-19); ASPARTATE AMINO TRANSFERASE 54 U/L (14-36); BILIRUBIN,DIRECT 0.3 mg/dL (0.0-0.4); BILIRUBIN,TOTAL 0.3 mg/dL (0.2-1.3); BLOOD UREA NITROGEN 22 mg/dL (7-20); CALCIUM 8.1 mg/dL (8.4-10.2); CARBON DIOXIDE 32 mmol/L (22-30); CHLORIDE 87 mmol/L (98-107); GLUCOSE 119 mg/dL (75-110); POTASSIUM 4.3 mmol/L (3.6-5.0); SODIUM 126.6 mmol/L (137-145); TOTAL PROTEIN 6.1 g/dL (6.3-8.2)
[2018-01-11] MEDS ORDERED: PREDNISONE 10 MG TABLET PO SCH (08:21)
--- NOTE | 2018-01-11 08:27 | PDOC PROGRESS REPORT ---
Subjective Progress Note for:: 01/11/18 Subjective:: The patient states to feel much better. Her breathing has improved she denies any swelling or shortness of breath. She denies any cough. Reason For Visit: COMMUNITY ACQUIRE PNEUMONIA Physical Exam Vital Signs: Temp Pulse Resp BP Pulse Ox 97.7 F 60 16 136/64 H 100 01/11/18 03:35 01/11/18 07:00 01/11/18 03:35 01/11/18 03:35 01/11/18 03:35 Pulse Oximeter Continuous Start: 01/08/18 20: 02 Freq: RTQ4 Status: Complete Document 01/09/18 16:00 LDA (Rec: 01/09/18 16:42 LDA [id number]) Pulse Oximetry Assessment Equipment Usage Equipment Discontinued Continuous SpO2 Machine # xx Intake & Output 01/10/18 01/11/18 01/12/18 06:59 06:59 06:59 Intake Total 590 2114 Output Total 900 1800 Balance -310 314 Weight 71 kg 72.7 kg General appearance: PRESENT: mild distress Head exam: PRESENT: atraumatic Eye exam: PRESENT: conjunctiva pink Neck exam: PRESENT: carotid bruit. ABSENT: JVD Respiratory exam: PRESENT: clear to auscultation lino Cardiovascular exam: PRESENT: RRR, +S1, +S2 GI/Abdominal exam: PRESENT: normal bowel sounds, soft Extremities exam: PRESENT: tenderness Musculoskeletal exam: PRESENT: tenderness Neurological exam: PRESENT: alert, awake Results Laboratory Results: 01/11/18 04:57 01/11/18 04:57 01/11/18 01/11/18 04:57 04:57 WBC 12.9 H RBC 4.06 Hgb 10.4 L Hct 30.9 L MCV 76 L MCH 25.7 L MCHC 33.7 RDW 16.0 H Plt Count 296 Seg Neutrophils % 81.6 H Lymphocytes % 12.3 L Monocytes % 5.5 Eosinophils % 0.2 Basophils % 0.4 Absolute Neutrophils 10.5 H Absolute Lymphocytes 1.6 Absolute Monocytes 0.7 Absolute Eosinophils 0.0 Absolute Basophils 0.1 Sodium 126.6 L Potassium 4.3 Chloride 87 L Carbon Dioxide 32 H Anion Gap 8 BUN 22 H Creatinine 0.76 Est GFR ( Amer) > 60 Est GFR (Non-Af Amer) > 60 Glucose 119 H Calcium 8.1 L Magnesium 1.9 Total Bilirubin 0.3 AST 54 H ALT 50 Alkaline Phosphatase 92 Total Protein 6.1 L Albumin 3.2 L 01/08/18 01/09/18 01/09/18 21:10 03:00 11:39 Troponin I < 0.012 < 0.012 < 0.012 Impressions: Chest X-Ray 01/08/18 16:13 IMPRESSION: DIFFUSE BILATERAL PARENCHYMAL AIRSPACE DISEASE. POSSIBLY DUE TO PNEUMONIA. PULMONARY EDEMA CANNOT BE EXCLUDED. Chest CT 01/08/18 19:30 IMPRESSION: Study degraded by motion artifact. Small bilateral pleural effusions. Mild cardiomegaly. Interstitial edema. Mild mediastinal adenopathy. Patchy bilateral ground-glass opacities may be secondary to pulmonary edema, hemorrhage or pneumonia. Radiographic followup to resolution recommended. Assessment & Plan - Diagnosis (1) Atrial fibrillation Qualifiers: Atrial fibrillation type: paroxysmal Qualified Code(s): I48.0 - Paroxysmal atrial fibrillation Is this a current diagnosis for this admission?: Yes Plan: Presently in normal sinus rhythm. Will continue with current medications (2) Acute respiratory failure with hypoxia Is this a current diagnosis for this admission?: Yes Plan: Resolved most probably related to fluid overload. Awaiting results of the echo. Will continue with current treatments (3) Hypertension Qualifiers: Hypertension type: essential hypertension Qualified Code(s): I10 - Essential (primary) hypertension Is this a current diagnosis for this admission?: Yes Plan: Well controlled we will continue with current medications (4) Hyponatremia Is this a current diagnosis for this admission?: Yes Plan: Improving we will obtain the urine and serum osmolarity and urine and urine sodium. (5) Hypoxia Is this a current diagnosis for this admission?: Yes Plan: Resolved we will check on O2 saturation on room air and with ambulation
[2018-01-11] MEDS: LANSOPRAZOLE 30 MG TAB.RAP.DR PO SCH (08:52)
--- NOTE | 2018-01-11 09:27 | XCELERA REPORT ---
[address] [address] Transthoracic Echocardiogram Report Name: CAROL CHAVEZ Age: 82 yrs Gender: Female : 1935 Patient Status: Inpatient Patient Location: [address] [place] [address] Study Date: 01/10/2018 09:41 AM Procedure: A complete two-dimensional transthoracic echocardiogram was performed (2D, M-mode, spectral and color flow Doppler). The study was technically difficult with many images being suboptimal in quality. Reason For Study: chf Ordering Physician: JOSÉ MIGUEL ESQUIVEL Performed By: Libia Jordan Interpretation Summary Left ventricular systolic function is low normal. There is normal left ventricular wall thickness. The left ventricle is borderline dilated. LV diastolic function could not be adequately assessed. Wall motion cannot be accurately commented on, but no definite regional wall motion abnormalities noted. The right ventricle is mild to moderately dilated. The right ventricle appears to be hypertrophied The right ventricular systolic function is normal. The right atrium is moderately dilated. The left atrium is mildly dilated. There is a moderate amount of mitral regurgitation There is no mitral valve stenosis. There is no aortic valve stenosis There is a mild amount of aortic regurgitation There is a mild to moderate amount of tricuspid regurgitation There is mild to moderate pulmonary hypertension by echo Best estimated RVSP is approximately 40 mm/Hg. The pulmonic valve is not well visualized. The aortic root is not well visualized but is probably normal size. The inferior vena cava was not well visualized Minimal pericardial effusion. MMode/2D Measurements & Calculations RVDd: 3.3 cm LVIDd: 6.0 cm FS: 33.9 % Ao root diam: 3.4 cm IVSd: 0.72 cm LVIDs: 4.0 cm EDV(Teich): 183.2 mlAo root area: 8.9 cm2 LVPWd: 0.84 cmESV(Teich): 69.9 ml EF(Teich): 61.9 % LVOT diam: 1.8 cm LVOT area: 2.5 cm2 Doppler Measurements & Calculations MV E max zahira: MV dec slope: Ao V2 max: AI max zahira: 114.4 cm/sec 191.5 cm/sec 389.4 cm/sec MV A max zahira: 595.1 cm/sec2 Ao max PG: AI max P.9 cm/sec MV dec time: 14.7 mmHg 60.7 mmHg MV E/A: 2.5 0.19 sec Ao V2 mean: AI dec slope: 121.3 cm/sec Ao mean P.2 cm/sec2 7.1 mmHg AI P1/2t: Ao V2 VTI: 491.2 msec 40.0 cm LISS(I,D): 1.1 cm2 LISS(V,D): 0.90 cm2 LV V1 max PG: SV(LVOT): 44.0 ml PA V2 max: PI end-d zahira: 1.9 mmHg 109.1 cm/sec 100.9 cm/sec LV V1 mean PG: PA max P.1 mmHg 4.8 mmHg LV V1 max: 69.6 cm/sec LV V1 mean: 50.6 cm/sec LV V1 VTI: 17.7 cm TR max zahira: 284.8 cm/sec TR max P.6 mmHg Left Ventricle The left ventricle is borderline dilated. There is normal left ventricular wall thickness. Left ventricular systolic function is low normal. LV diastolic function could not be adequately assessed. Wall motion cannot be accurately commented on, but no definite regional wall motion abnormalities noted. Right Ventricle The right ventricle is mild to moderately dilated. The right ventricle appears to be hypertrophied. The right ventricular systolic function is normal. Atria The right atrium is moderately dilated. The left atrium is mildly dilated. Mitral Valve The mitral valve is grossly normal. There is no mitral valve stenosis. There is a moderate amount of mitral regurgitation. Aortic Valve The aortic valve is mildly calcified. The aortic valve is not well visualized secondary to technical limitations. There is no aortic valve stenosis. There is a mild amount of aortic regurgitation. Tricuspid Valve The tricuspid valve is not well visualized, but is grossly normal. There is no tricuspid stenosis. There is a mild to moderate amount of tricuspid regurgitation. There is mild to moderate pulmonary hypertension by echo. Best estimated RVSP is approximately 40 mm/Hg. Pulmonic Valve The pulmonic valve is not well visualized. Great Vessels The aortic root is not well visualized but is probably normal size. The inferior vena cava was not well visualized. Effusions Minimal pericardial effusion. : JOSÉ MIGUEL ESQUIVEL > José Miguel Norwood
[2018-01-11] MEDS: IPRATROPIUM/ALBUTEROL 0.5-2.5 MG/3 ML AMPUL NEB PRN (09:37)
[2018-01-11] MEDS: APIXABAN 5 MG TABLET PO SCH ×2 (10:44→21:19)
[2018-01-11] MEDS: MAGNESIUM CITRATE 296 ML BOTTLE PO SCH (10:44)
[2018-01-11] MEDS: AZITHROMYCIN 250 MG TABLET PO SCH (10:44)
[2018-01-11] MEDS: PREDNISONE 5 MG TABLET PO SCH ×2 (10:45→17:54)
[2018-01-11] MEDS: GUAIFENESIN 600 MG TABLET.SA PO SCH ×3 (10:45→21:20)
[2018-01-11] MEDS: METOPROLOL SUCCINATE 50 MG TAB.SR.24H PO SCH ×2 (10:46→21:19)
[2018-01-11] MEDS: FUROSEMIDE 40 MG TABLET PO SCH (10:46)
--- NOTE | 2018-01-11 11:31 | RADIOLOGY REPORT (SQ) ---
EXAM DESCRIPTION: CHEST 2 VIEWS COMPLETED DATE/TIME: 01/11/2018 11:15 am REASON FOR STUDY: sob COMPARISON: 01/08/2018 EXAM PARAMETERS: NUMBER OF VIEWS: two views TECHNIQUE: Digital Frontal and Lateral radiographic views of the chest acquired. RADIATION DOSE: NA LIMITATIONS: none FINDINGS: LUNGS AND PLEURA: The previously described diffuse bilateral parenchymal airspace disease appears improved. There is blunting of the costophrenic angles consistent with small bilateral pleur al effusions. Chronic appearing changes are identified MEDIASTINUM AND HILAR STRUCTURES: No masses or contour abnormalities. HEART AND VASCULAR STRUCTURES: Heart normal size. No evidence for failure. BONES: No acute findings. HARDWARE: None in the chest. OTHER: No other significant finding. IMPRESSION: Interval improvement in the previously described diffuse bilateral parenchymal airspace disease. Small bilateral pleural effusions are identified on the current study. Other findings as n oted above TECHNICAL DOCUMENTATION: JOB ID: [id number] [employer]- All Rights Reserved Reading location - IP/workstation name: [email or web address]
[2018-01-12 03:51] VITALS: BP 129/52
[2018-01-12 06:12] LABS: ANION GAP 10 (5-19); BLOOD UREA NITROGEN 17 mg/dL (7-20); CALCIUM 8.5 mg/dL (8.4-10.2); CARBON DIOXIDE 31 mmol/L (22-30); CHLORIDE 90 mmol/L (98-107); GLUCOSE 101 mg/dL (75-110); POTASSIUM 4.5 mmol/L (3.6-5.0); SODIUM 130.7 mmol/L (137-145)
[2018-01-12 08:21] LABS: OSMOLALITY,URINE 252 mOsm/kg (300-900)
[2018-01-12 08:33] LABS: URINE SODIUM 109 mmol/L (30-90)
[2018-01-12] MEDS: LANSOPRAZOLE 30 MG TAB.RAP.DR PO SCH (08:41)
--- NOTE | 2018-01-12 08:42 | PDOC DISCHARGE SUMMARY ---
General - Admit/Disc Date/PCP Admission Date/Primary Care Provider: 01/08/18 18:43 LOW CLAY MD Discharge Date: 01/12/18 - Discharge Diagnosis (1) Atrial fibrillation Is this a current diagnosis for this admission?: Yes Summary: Continue metoprolol for rate control and Eliquis. (2) Acute respiratory failure with hypoxia Is this a current diagnosis for this admission?: Yes Summary: Resolved most probably secondary to fluid overload. O2 saturation is 96% on room air on discharge (3) Hypertension Is this a current diagnosis for this admission?: Yes Summary: Well-controlled will continue with current medications (4) Hyponatremia Is this a current diagnosis for this admission?: Yes Summary: Improved most probably fluid overload and diuretics (5) Hypoxia Is this a current diagnosis for this admission?: Yes Summary: Most probably secondary to fluid overload - Additional Information Resuscitation Status: Full Code Discharge Diet: As Tolerated Discharge Activity: Activity As Tolerated Prescriptions: Azithromycin [Zithromax 250 mg Tablet] 250 mg PO DAILY #3 tablet Prednisone [Deltasone 5 mg Tablet] 5 mg PO DAILY #2 tablet Home Medications: Apixaban [Eliquis] 5 mg PO Q12 01/09/18 Fluticasone Propionate [Flonase Nasal [place] 50 Mcg/[place] 16 gm] 1 spray NASL DAILYP PRN 01/09/18 Lorazepam [Ativan 0.5 mg Tablet] 0.5 mg PO Q12HP PRN 01/09/18 Metoprolol Succinate [Toprol Xl 50 mg Tab.sr] 50 mg PO Q12 01/09/18 Omeprazole 40 mg PO ACBRKFST 01/09/18 Ondansetron [Zofran Odt 4 mg Tablet] 4 mg PO DAILYP PRN 01/09/18 Polyethylene Glycol 3350 [Miralax Powder 17 gm/Packet] 17 gm PO DAILYP PRN 01/09 Tramadol HCl [Ultram 50 mg Tablet] 100 mg PO Q8HP PRN 01/09/18 Azithromycin [Zithromax 250 mg Tablet] 250 mg PO DAILY #3 tablet 01/12/18 Benazepril/Hydrochlorothiazide [Benazepril-Hctz 20-12.5 mg Tab] 0.5 tab PO DAILY #0 01/12/18 Prednisone [Deltasone 5 mg Tablet] 5 mg PO DAILY #2 tablet 01/12/18 History of Present Illness History of Present Illness: CAROL CHAVEZ is a 82 year old female Hospital Course Hospital Course: The patient was admitted to the hospital. She had significant amount of diuresis. She was placed on oxygen. There was a questionable bronchitis versus pneumonia so she was started on antibiotics for community-acquired pneumonia. Once the patient's symptoms have improved the medications have been stopped. On the day of discharge she appeared comfortable with only small amount of diuretic and sodium increasing to 130 Physical Exam Vital Signs: Temp Pulse Resp BP Pulse Ox 97.7 F 89 20 129/52 H 100 01/12/18 03:34 01/12/18 07:00 01/11/18 16:13 01/12/18 03:34 01/12/18 03:34 Pulse Oximeter Continuous Start: 01/08/18 20: 02 Freq: RTQ4 Status: Complete Document 01/09/18 16:00 LDA (Rec: 01/09/18 16:42 LDA [id number]) Pulse Oximetry Assessment Equipment Usage Equipment Discontinued Continuous SpO2 Machine # xx Intake & Output 01/11/18 01/12/18 01/13/18 06:59 06:59 06:59 Intake Total 2114 831 Output Total 1800 1000 Balance 314 -169 Weight 72.7 kg 69.7 kg General appearance: PRESENT: no acute distress Head exam: PRESENT: atraumatic Eye exam: PRESENT: conjunctiva pink Neck exam: PRESENT: carotid bruit. ABSENT: JVD Respiratory exam: PRESENT: crackles Cardiovascular exam: PRESENT: irregular rhythm, +S1, +S2 Pulses: PRESENT: +1 pedal pulses bilateral GI/Abdominal exam: PRESENT: normal bowel sounds, soft Extremities exam: PRESENT: tenderness Musculoskeletal exam: PRESENT: ambulatory Neurological exam: PRESENT: alert, awake Results Laboratory Results: 01/11/18 04:57 01/12/18 05:23 01/11/18 01/12/18 01/12/18 10:25 05:23 05:23 Sodium 130.7 L Potassium 4.5 Chloride 90 L Carbon Dioxide 31 H Anion Gap 10 BUN 17 Creatinine 0.69 Est GFR ( Amer) > 60 Est GFR (Non-Af Amer) > 60 Glucose 101 Serum Osmolality 270 L 271 L Calcium 8.5 Urine Osmolality 01/12/18 07:40 Sodium Potassium Chloride Carbon Dioxide Anion Gap BUN Creatinine Est GFR ( Amer) Est GFR (Non-Af Amer) Glucose Serum Osmolality Calcium Urine Osmolality 252 L 01/08/18 01/09/18 01/09/18 21:10 03:00 11:39 Troponin I < 0.012 < 0.012 < 0.012 Impressions: Chest CT 01/08/18 19:30 IMPRESSION: Study degraded by motion artifact. Small bilateral pleural effusions. Mild cardiomegaly. Interstitial edema. Mild mediastinal adenopathy. Patchy bilateral ground-glass opacities may be secondary to pulmonary edema, hemorrhage or pneumonia. Radiographic followup to resolution recommended. Chest X-Ray 01/11/18 00:00 IMPRESSION: Interval improvement in the previously described diffuse bilateral parenchymal airspace disease. Small bilateral pleural effusions are identified on the current study. Other findings as noted above Qualifiers - * PATIENT BEING DISCHARGED WITH ANY OF THE FOLLOWING DIAGNOSIS: No
[2018-01-12] MEDS: METOPROLOL SUCCINATE 50 MG TAB.SR.24H PO SCH (09:49)
[2018-01-12] MEDS: FUROSEMIDE 40 MG TABLET PO SCH (09:49)
[2018-01-12] MEDS: PREDNISONE 5 MG TABLET PO SCH (09:49)
[2018-01-12] MEDS: AZITHROMYCIN 250 MG TABLET PO SCH (09:49)
[2018-01-12] MEDS: APIXABAN 5 MG TABLET PO SCH (09:49)
[2018-01-12] MEDS: MAGNESIUM CITRATE 296 ML BOTTLE PO SCH (09:50)
[2018-01-12] MEDS: GUAIFENESIN 600 MG TABLET.SA PO SCH (09:50)
== END 2018-01-12 11:33 | disposition home or self-care (01) | DRG 194 ==
LOC: ER 16:02 → EH 18:43 → 3S 01-09 12:57
PROVIDERS: ADMIT Internal Medicine; ATTEND Internal Medicine
DX: J18.9 Pneumonia, unspecified organism (principal); E87.1 Hypo-osmolality and hyponatremia; N17.9 Acute kidney failure, unspecified; I48.0 Paroxysmal atrial fibrillation; E87.8 Other disorders of electrolyte and fluid balance, not elsewhere classified; I10 Essential (primary) hypertension; J40 Bronchitis, not specified as acute or chronic; E87.70 Fluid overload, unspecified; R06.03 Acute respiratory distress; Z60.2 Problems related to living alone
CPT/HCPCS: 36415; 71045; 71046; 71250; 80048; 80053; 81001; 82550; 82553; 82570; 82803; 82962; 83735; 83880; 83930; 83935; 84295; 84300; 84484; 85025; 87040; 93005; 93010; 93306; 94660; 94667; 94668; 94799; 96365; 99291; J0456; J0696; J1885; J1940; J2930; J3490; J7030; J7060; J7512; J7620

== ENCOUNTER → 2018-01-19 | Outpatient (CLI) | payer BC, OTHER ==
--- NOTE | 2018-01-19 12:49 | RADIOLOGY REPORT (SQ) ---
EXAM DESCRIPTION: KUB/ABDOMEN (SINGLE VIEW) COMPLETED DATE/TIME: 01/19/2018 11:57 am REASON FOR STUDY: CONSTIPATION-SLOW TRANSIT K59.01 SLOW TRANSIT CONSTIPATION COMPARISON: None. NUMBER OF VIEWS: One view. TECHNIQUE: Supine radiographic image of the abdomen acquired. LIMITATIONS: None. FINDINGS: BOWEL GAS PATTERN: Normal bowel gas pattern. No dilated loops. CALCIFICATIONS: No suspicious calcifications. SOFT TISSUES: No gross mass or suggestion of organomegaly. HARDWARE: None in the abdomen. BONES: No acute fracture. No worrisome bone lesions. OTHER: No other significant finding. IMPRESSION: NO RADIOGRAPHIC EVIDENCE FOR ACUTE ABDOMINAL DISEASE. TECHNICAL DOCUMENTATION: JOB ID: [id number] [employer]- All Rights Reserved Reading location - IP/workstation name: [email or web address]
== END ==
LOC: RAD 11:41
PROVIDERS: ATTEND Physician Assistant Surgical
DX: K59.01 Slow transit constipation (principal)
CPT/HCPCS: 74018

== ENCOUNTER → 2018-02-13 | Outpatient (CLI) | payer BC, OTHER ==
[2018-02-13 12:48] LABS: ANION GAP 11 (5-19); BLOOD UREA NITROGEN 9 mg/dL (7-20); CALCIUM 9.4 mg/dL (8.4-10.2); CARBON DIOXIDE 32 mmol/L (22-30); CHLORIDE 95 mmol/L (98-107); GLUCOSE 110 mg/dL (75-110); POTASSIUM 4.6 mmol/L (3.6-5.0); SODIUM 138.3 mmol/L (137-145); URIC ACID 4.7 mg/dL (2.5-7.5)
--- NOTE | 2018-02-13 12:55 | RADIOLOGY REPORT (SQ) ---
EXAM DESCRIPTION: ANKLE LEFT COMPLETE COMPLETED DATE/TIME: 02/13/2018 11:54 am REASON FOR STUDY: PAIN IN LEFT ANKLE AND JOINTS OF LEFT FOOT M25.572 PAIN IN LEFT ANKLE AND JOINTS OF LEFT FOOT COMPARISON: None. NUMBER OF VIEWS: Three views. TECHNIQUE: AP, lateral, and oblique radiographic images acquired of the left ankle. LIMITATIONS: None. FINDINGS: MINERALIZATION: Normal. BONES: No acute fracture or dislocation. Calcaneal spurs. JOINTS: No effusions. SOFT TISSUES:Soft tissue swelling. No foreign body. OTHER: No other significant finding. IMPRESSION: 1. Soft tissue swelling. 2 No acute osseous findings. TECHNICAL DOCUMENTATION: JOB ID: [id number] [employer]- All Rights Reserved Reading location - IP/workstation name: [email or web address]
== END ==
LOC: OD 11:25
PROVIDERS: ATTEND Family Medicine Geriatric Medicine
DX: M25.572 Pain in left ankle and joints of left foot (principal); Z79.899 Other long term (current) drug therapy
CPT/HCPCS: 36415; 80048; 84550

== ENCOUNTER → 2018-03-23 | Outpatient (CLI) | payer BC, OTHER ==
[2018-03-23 15:22] LABS: ANION GAP 12 (5-19); BLOOD UREA NITROGEN 14 mg/dL (7-20); CALCIUM 8.7 mg/dL (8.4-10.2); CARBON DIOXIDE 28 mmol/L (22-30); CHLORIDE 94 mmol/L (98-107); GLUCOSE 122 mg/dL (75-110); POTASSIUM 4.1 mmol/L (3.6-5.0); SODIUM 133.8 mmol/L (137-145)
== END ==
LOC: OD 14:14
PROVIDERS: ATTEND Family Medicine
DX: R60.9 Edema, unspecified (principal)
CPT/HCPCS: 36415; 80048

== ENCOUNTER → 2018-04-27 | Outpatient (CLI) | payer BC, OTHER ==
[2018-04-27 11:02] LABS: ABSOLUTE BASOPHILS # (AUTO) 0.1 10^3/uL (0.0-0.2); ABSOLUTE EOSINOPHILS # (AUTO) 0.1 10^3/uL (0.0-0.6); ABSOLUTE MONOCYTES (AUTO) 0.6 10^3/uL (0.1-1.4); ABSOLUTE NEUT (AUTO) 5.7 10^3/uL (1.7-8.2); BASOPHILS % (AUTO) 0.7 % (0-2); EOSINOPHILS % (AUTO) 1.4 % (0-6); HEMATOCRIT 32.8 % (36.0-47.0); HEMOGLOBIN 10.6 g/dL (12.0-15.5); LYMPHOCYTES % (AUTO) 13.3 % (13-45); MEAN CORPUSCULAR HGB CONC 32.3 g/dL (32.0-36.0); MEAN CORPUSCULAR VOLUME 74 fl (80-97); MONOCYTES % (AUTO) 7.9 % (3-13); PLATELET COUNT 287 10^3/uL (150-450); RED BLOOD COUNT 4.42 10^6/uL (3.72-5.28); RED CELL DISTRIBUTION WIDTH 18.4 % (11.5-14.0); SEGMENTED NEUTROPHILS % (AUTO) 76.7 % (42-78); TOTAL CELLS COUNTED % (AUTO) 100 %; WHITE BLOOD COUNT 7.5 10^3/uL (4.0-10.5)
[2018-04-27 11:20] LABS: ANION GAP 14 (5-19); BLOOD UREA NITROGEN 15 mg/dL (7-20); CALCIUM 7.9 mg/dL (8.4-10.2); CARBON DIOXIDE 28 mmol/L (22-30); CHLORIDE 87 mmol/L (98-107); GLUCOSE 133 mg/dL (75-110); POTASSIUM 3.7 mmol/L (3.6-5.0); SODIUM 129.2 mmol/L (137-145)
[2018-04-27 17:37] LABS: ALANINE AMINOTRANSFERASE 19 U/L (9-52); ALBUMIN 3.1 g/dL (3.5-5.0); ALKALINE PHOSPHATASE 78 U/L (38-126); ASPARTATE AMINO TRANSFERASE 25 U/L (14-36); BILIRUBIN,DIRECT 0.2 mg/dL (0.0-0.4); BILIRUBIN,TOTAL 0.6 mg/dL (0.2-1.3); TOTAL PROTEIN 6.1 g/dL (6.3-8.2)
== END ==
LOC: OD 10:25
PROVIDERS: ATTEND Family Medicine Geriatric Medicine
DX: I11.0 Hypertensive heart disease with heart failure (principal); J30.2 Other seasonal allergic rhinitis; I50.9 Heart failure, unspecified; I48.91 Unspecified atrial fibrillation; R60.0 Localized edema; K21.9 Gastro-esophageal reflux disease without esophagitis; Z29.9 Encounter for prophylactic measures, unspecified; Z68.26 Body mass index [BMI] 26.0-26.9, adult; Z68.29 Body mass index [BMI] 29.0-29.9, adult
CPT/HCPCS: 36415; 80048; 80076; 83735; 85025

== ENCOUNTER 2018-06-11 13:54 | Inpatient (IN) | payer BC, OTHER ==
--- NOTE | 2018-06-11 14:20 | ER Document Report ---
ED Medical Screen (RME) - General Chief Complaint: Cough Stated Complaint: COUGH Time Seen by Provider: 06/11/18 14:19 Mode of Arrival: Wheelchair Information source: Patient TRAVEL OUTSIDE OF THE [place] IN LAST 30 DAYS: No - HPI Patient complains to provider of: cough Onset: Other - pt seen at and sent here for further evaluation of low O2 levels and cough - Related Data Allergies/Adverse Reactions: Iodinated Contrast- Oral and IV Dye [IV Dye, Iodine Containing] Allergy (Severe, Verified 06/11/18 13:57) Anaphylaxis Shellfish * [Shellfish] Allergy (Severe, Verified 06/11/18 13:57) Anaphylaxis walnut Allergy (Severe, Verified 06/11/18 13:57) Anaphylaxis acetaminophen [Acetaminophen] Allergy (Intermediate, Verified 06/11/18 13:57) nervousness Sulfa (Sulfonamide Antibiotics) Allergy (Intermediate, Verified 06/11/18 13:57) Hives meperidine HCl [From Demerol] Allergy (Mild, Verified 06/11/18 13:57) AMS Past Medical History - Past Medical History Cardiac Medical History: Reports: Hx Atrial Fibrillation - Paroxysmal Eliquis, Hx Hypertension Denies: Hx Coronary Artery Disease, Hx Heart Attack Pulmonary Medical History: Reports: Hx Bronchitis, Hx COPD Denies: Hx Asthma, Hx Pneumonia Neurological Medical History: Denies: Hx Cerebrovascular Accident, Hx Seizures Renal/ Medical History: Reports: Hx Kidney Stones. Denies: Hx Peritoneal Dialysis GI Medical History: Reports: Hx Gastroesophageal Reflux Disease Musculoskeltal Medical History: Reports Hx Arthritis - Takes tramadol for joint pain Psychiatric Medical History: Denies: Hx Depression Past Surgical History: Reports: Hx Hysterectomy, Hx Whipple, Other - Cataract surgery about 3 weeks ago. Back surgery, Bladder Surgery - Immunizations Hx Diphtheria, Pertussis, Tetanus Vaccination: Yes History of Influenza Vaccine for 03/2017 - 08/2017 Season: No Physical Exam - Vital signs Vitals: Temp Pulse Resp BP Pulse Ox 98.5 F 123 H 18 127/95 H 98 06/11/18 14:07 06/11/18 14:07 06/11/18 14:07 06/11/18 14:07 06/11/18 14:07 Course - Vital Signs Vital signs: Temp Pulse Resp BP Pulse Ox 98.5 F 123 H 18 127/95 H 98 06/11/18 14:07 06/11/18 14:07 06/11/18 14:07 06/11/18 14:07 06/11/18 14:07 Doctor's Discharge - Discharge Referrals: SHREE THORNTON MD [Primary Care Provider] - Follow up as needed
--- NOTE | 2018-06-11 15:06 | RADIOLOGY REPORT (SQ) ---
EXAM DESCRIPTION: CHEST 2 VIEWS COMPLETED DATE/TIME: 06/11/2018 2:48 pm REASON FOR STUDY: cough COMPARISON: 01/11/2018. EXAM PARAMETERS: NUMBER OF VIEWS: two views TECHNIQUE: Digital Frontal and Lateral radiographic views of the chest acquired. RADIATION DOSE: NA LIMITATIONS: none FINDINGS: LUNGS AND PLEURA: Interval resolution bibasilar infiltrates and effusions. Hyperinflation . Linear densities left lung base could represent chronic scarring MEDIASTINUM AND HILAR STRUCTURES: No masses or contour abnormalities. HEART AND VASCULAR STRUCTURES: The heart is normal with aortic atherosclerosis. BONES: Dorsal scoliosis convex right. Dorsal spondylosis. IMPRESSION: Mild hyperinflation. Left basilar scarring. Otherwise, no acute disease. TECHNICAL DOCUMENTATION: JOB ID: [id number] 2010 [employer]- All Rights Reserved Reading location - IP/workstation name: [email or web address]
[2018-06-11 15:15] LABS: ABSOLUTE LYMPHOCYTES (AUTO) 1.4 10^3/uL (0.5-4.7); ABSOLUTE MONOCYTES (AUTO) 0.6 10^3/uL (0.1-1.4); ABSOLUTE NEUT (AUTO) 12.1 10^3/uL (1.7-8.2); BASOPHILS % (AUTO) 0.3 % (0-2); EOSINOPHILS % (AUTO) 0.1 % (0-6); HEMATOCRIT 38.8 % (36.0-47.0); HEMOGLOBIN 12.8 g/dL (12.0-15.5); MEAN CORPUSCULAR HEMOGLOBIN 23.1 pg (27.0-33.4); MEAN CORPUSCULAR VOLUME 70 fl (80-97); MONOCYTES % (AUTO) 4.2 % (3-13); PLATELET COUNT 444 10^3/uL (150-450); RED BLOOD COUNT 5.55 10^6/uL (3.72-5.28); RED CELL DISTRIBUTION WIDTH 19.6 % (11.5-14.0); SEGMENTED NEUTROPHILS % (AUTO) 85.4 % (42-78); TOTAL CELLS COUNTED % (AUTO) 100 %; WHITE BLOOD COUNT 14.1 10^3/uL (4.0-10.5)
[2018-06-11 15:18] LABS: ALANINE AMINOTRANSFERASE 21 U/L (9-52); ALBUMIN 3.1 g/dL (3.5-5.0); ALKALINE PHOSPHATASE 137 U/L (38-126); ANION GAP 10 (5-19); ASPARTATE AMINO TRANSFERASE 28 U/L (14-36); BILIRUBIN,DIRECT 0.4 mg/dL (0.0-0.4); BLOOD UREA NITROGEN 15 mg/dL (7-20); CALCIUM 7.9 mg/dL (8.4-10.2); CARBON DIOXIDE 33 mmol/L (22-30); CHLORIDE 72 mmol/L (98-107); GLUCOSE 111 mg/dL (75-110); POTASSIUM 3.9 mmol/L (3.6-5.0); TOTAL PROTEIN 6.3 g/dL (6.3-8.2)
[2018-06-11 15:22] LABS: SODIUM 115.2 mmol/L (137-145)
[2018-06-11 15:25] LABS: A TYPE INFLUENZA AG NEGATIVE (NEGATIVE); B INFLUENZA AG NEGATIVE (NEGATIVE)
[2018-06-11 16:05] LABS: APPEARANCE,URINE CLEAR; BILIRUBIN,URINE NEGATIVE (NEGATIVE); COLOR,URINE YELLOW; GLUCOSE, URINE NEGATIVE (NEGATIVE); KETONES,URINE NEGATIVE (NEGATIVE); LEUKOCYTE ESTERASE,URINE TRACE (NEGATIVE); NITRITE,URINE NEGATIVE (NEGATIVE); PROTEIN,URINE NEGATIVE (NEGATIVE); URINE SPECIFIC GRAVITY 1.005; UROBILINOGEN,URINE NEGATIVE mg/dL (<2.0)
[2018-06-11 16:18] LABS: URINE POTASSIUM 40.8 mmol/L (22-164)
--- NOTE | 2018-06-11 16:19 | ER Document Report ---
ED General - General Chief Complaint: Cough Stated Complaint: COUGH Time Seen by Provider: 06/11/18 14:19 Mode of Arrival: Wheelchair Information source: Patient, Relative, [facility] Records TRAVEL OUTSIDE OF THE [place] IN LAST 30 DAYS: No - HPI Patient complains to provider of: cough Onset: Other - This 82-year-old female presents for evaluation of from an urgent care for cough. She is followed by Dr. Jackson and has a history of h ypertension as well as some cough in the past she has been evaluated twice for this cough in the last 2 weeks started on Tessalon Perles as well as an inhaler without any improvement. She denies fevers or chills but has been producing sputum. She notes that she has been also very weak her sisters who help care for her at home noted that she has been nearly unable to get out of bed for the last week. - Related Data Allergies/Adverse Reactions: Iodinated Contrast- Oral and IV Dye [IV Dye, Iodine Containing] Allergy (Severe, Verified 06/11/18 13:57) Anaphylaxis Shellfish * [Shellfish] Allergy (Severe, Verified 06/11/18 13:57) Anaphylaxis walnut Allergy (Severe, Verified 06/11/18 13:57) Anaphylaxis acetaminophen [Acetaminophen] Allergy (Intermediate, Verified 06/11/18 13:57) nervousness Sulfa (Sulfonamide Antibiotics) Allergy (Intermediate, Verified 06/11/18 13:57) Hives meperidine HCl [From Demerol] Allergy (Mild, Verified 06/11/18 13:57) AMS Past Medical History - General Information source: Patient - Social History Smoking Status: Never Smoker Frequency of alcohol use: None Drug Abuse: None Family History: Reviewed & Not Pertinent Patient has suicidal ideation: No Patient has homicidal ideation: No - Past Medical History Cardiac Medical History: Reports: Hx Atrial Fibrillation - Paroxysmal Eliquis, Hx Congestive Heart Failure, Hx Hypertension Denies: Hx Coronary Artery Disease, Hx Heart Attack Pulmonary Medical History: Reports: Hx Bronchitis, Hx COPD Denies: Hx Asthma, Hx Pneumonia Neurological Medical History: Denies: Hx Cerebrovascular Accident, Hx Seizures Renal/ Medical History: Reports: Hx Kidney Stones. Denies: Hx Peritoneal Dialysis GI Medical History: Reports: Hx Gastroesophageal Reflux Disease Musculoskeletal Medical History: Reports Hx Arthritis - Takes tramadol for joint pain Psychiatric Medical History: Denies: Hx Depression Past Surgical History: Reports: Hx Hysterectomy, Hx Whipple, Other - Cataract surgery about 3 weeks ago. Back surgery, Bladder Surgery - Immunizations Hx Diphtheria, Pertussis, Tetanus Vaccination: Yes Hx Pneumococcal Vaccination: 06/20/07 Review of Systems - Review of Systems -: Yes All other systems reviewed and negative Physical Exam - Vital signs Vitals: Temp Pulse Resp BP Pulse Ox 98.5 F 123 H 18 127/95 H 98 06/11/18 14:07 06/11/18 14:07 06/11/18 14:07 06/11/18 14:07 06/11/18 14:07 - HEENT Head: Normocephalic Eyes: Normal Conjunctiva: Normal - Respiratory Respiratory status: No respiratory distress Chest status: Nontender Breath sounds: Rales, Wheezing Chest palpation: Normal - Cardiovascular Rhythm: Regular Heart sounds: Normal auscultation - Abdominal Inspection: Normal Distension: No distension Tenderness: Nontender - Back Back: Normal - Extremities General upper extremity: Normal inspection, Nontender, Normal color, Normal ROM, Normal temperature General lower extremity: Normal inspection, Nontender, Normal color, Normal ROM, Normal temperature, Normal weight bearing. No: Remi's sign - Neurological Neuro grossly intact: Yes Cognition: Normal Orientation: AAOx4 [place] Coma Scale Eye Opening: Spontaneous [place] Coma Scale Verbal: Oriented [place] Coma Scale Motor: Obeys Commands [place] Coma Scale Total: 15 Speech: Normal Motor strength normal: LUE, RUE, LLE, RLE Sensory: Normal - Psychological Associated symptoms: Normal affect, Normal mood Course - Re-evaluation Re-evalutation: 82-year-old female presents for evaluation of cough as well as weakness. She is in the past had episodes of hyponatremia, incidentally today on her labs was identified that her sodium is 115. Currently she is 90% on room air, has a slightly rhonchorous pulmonary examination without any focal infiltrate on chest x-ray she is currently afebrile the modestly tachycardic. Because of her hyponatremia certainly believe that she requires hospitalization monitoring and reassessment, have sent urine electrolytes. Spoke to on-call hospitalist Dr. Remedios hernandez who agrees to evaluate this patient and admit to the hospital. She is a patient of Dr. Jackson who is currently not on-call because of schedule. Deferred administration of antibiotics at this time because I do not believe that she has a serious bacterial pneumonia. Deferred administration of hypertonic saline as she is currently not seizing and stable until a better plan is determined for appropriate fluid administration or restriction. - Vital Signs Vital signs: Temp Pulse Resp BP Pulse Ox 98.5 F 123 H 18 127/95 H 98 06/11/18 14:07 06/11/18 14:07 06/11/18 14:07 06/11/18 14:07 06/11/18 14:07 - Laboratory Result Diagrams: 06/11/18 14:32 06/11/18 16:34 Laboratory results interpreted by me: 06/11/18 06/11/18 06/11/18 14:32 14:32 15:40 WBC 14.1 H RBC 5.55 H MCV 70 L MCH 23.1 L RDW 19.6 H Seg Neutrophils % 85.4 H Lymphocytes % 10.0 L Absolute Neutrophils 12.1 H Sodium 115.2 L* Chloride 72 L Carbon Dioxide 33 H Glucose 111 H Calcium 7.9 L Alkaline Phosphatase 137 H Albumin 3.1 L Urine Blood SMALL H Ur Leukocyte Esterase TRACE H Urine Sodium 06/11/18 06/11/18 15:40 16:34 WBC RBC MCV MCH RDW Seg Neutrophils % Lymphocytes % Absolute Neutrophils Sodium 116.0 L* Chloride 72 L Carbon Dioxide 34 H Glucose Calcium 8.0 L Alkaline Phosphatase Albumin Urine Blood Ur Leukocyte Esterase Urine Sodium 21 L Discharge - Discharge Clinical Impression: Hyponatremia, Hypoxia, Cough Condition: Stable Disposition: ADMITTED INPATIENT Admitting Provider: Hospitalist - [facility] Admitted: [facility]
[2018-06-11 16:59] LABS: BLOOD UREA NITROGEN 16 mg/dL (7-20); CARBON DIOXIDE 34 mmol/L (22-30); CHLORIDE 72 mmol/L (98-107); GLUCOSE 108 mg/dL (75-110); POTASSIUM 3.8 mmol/L (3.6-5.0)
[2018-06-11 17:01] LABS: ANION GAP 10 (5-19)
[2018-06-11] MEDS ORDERED: FLUTICASONE NASAL SPRAY 50 MCG/SPRY 120 SPRAY/16 GM NASL PRN (17:29)
[2018-06-11] MEDS ORDERED: LACTULOSE SYRUP 20 GM/30 ML UDCUP PO PRN (17:44)
[2018-06-11] MEDS ORDERED: TRAMADOL HCL 50 MG TABLET PO ONE (17:44)
[2018-06-11] MEDS ORDERED: AZITHROMYCIN INJ 500 MG VIAL IV PRN (18:03)
--- NOTE | 2018-06-11 18:09 | PDOC H&P ---
History of Present Illness Admission Date/PCP: 06/11/18 16:51 SHREE THORNTON MD Patient complains of: Cough with increasing shortness of breath over the last 3- 4 weeks History of Present Illness: CAROL CHAVEZ is a 82 year old female who, according to her sisters, has not been feeling well for several weeks. In addition to a worsening cough the patient has experienced weight loss (7 pounds over the last week) due to very poor appetite. She had a similar presentation in December of this year. She tends to minimize symptoms but her sisters seem to be more accurate historians. Despite denial of the patient's sisters report that she did experience chills with possible fever. With her poor appetite they try to utilize Gatorade. She was compliant with her Lasix and potassium during this time. She did experience orthopnea. She does have chronic severe anemia and varicose veins with venous insufficiency. In addition to her symptoms the patient presented with an elevated white blood cell count as well as hyponatremia. The patient has had hyponatremia in the past. In fact in April her serum sodium was 125. Past Medical History Cardiac Medical History: Reports: Atrial Fibrillation - Paroxysmal Eliquis, Co ngestive Heart Failure, Hypertension, Other - Edema with chronic venous insufficiency Denies: Coronary Artery Disease, Myocardial Infarction Pulmonary Medical History: Reports: Bronchitis, Chronic Obstructive Pulmonary Disease (COPD) Denies: Asthma, Pneumonia EENT Medical History: Reports: Cataracts Neurological Medical History: Denies: Hemorrhagic CVA, Seizures Endocrine Medical History: Denies: Diabetes Mellitus Type 1, Diabetes Mellitus Type 2, Hypothyroidism Renal/ Medical History: Reports: Nephrolithiasis Denies: Chronic Kidney Disease Malignancy Medical History: Reports: None GI Medical History: Reports: Gastroesophageal Reflux Disease Musculoskeltal Medical History: Reports: Arthritis - Takes tramadol for joint pain Skin Medical History: Reports: None Psychiatric Medical History: Denies: Alcohol Dependency, Depression Traumatic Medical History: Reports: None Hematology: Reports: Anemia Denies: Sickle Cell Disease Infectious Medical History: Reports: None Past Surgical History Past Surgical History: Reports: Hysterectomy, Other - Cataract surgery about 3 weeks ago. Back surgery, Bladder Surgery Denies: Amputation Social History Information Source: Patient, Relative Lives with: Family Smoking Status: Never Smoker Frequency of Alcohol Use: None Hx Recreational Drug Use: No Drugs: None Hx Prescription Drug Abuse: No - Advance Directive Resuscitation Status: Do Not Resuscitate Surrogate healthcare decision maker:: The family has a completed DNR form at home. They will try and bring a copy. Patient has been hospitalized here before and there should be a copy on record. She does not have a specific healthcare proxy. Family History Family History: CAD, DM Parental Family History Reviewed: Yes Children Family History Reviewed: Yes Sibling(s) Family History Reviewed.: Yes Medication/Allergy Home Medications: Apixaban [Eliquis] 5 mg PO Q12 01/09/18 Fluticasone Propionate [Flonase Nasal [place] 50 Mcg/[place] 16 gm] 1 spray NASL DAILYP PRN 01/09/18 Lorazepam [Ativan 0.5 mg Tablet] 0.5 mg PO Q12HP PRN 01/09/18 Metoprolol Succinate [Toprol Xl 50 mg Tab.sr] 50 mg PO Q12 01/09/18 Omeprazole 40 mg PO ACBRKFST 01/09/18 Ondansetron [Zofran Odt 4 mg Tablet] 4 mg PO DAILYP PRN 01/09/18 Polyethylene Glycol 3350 [Miralax Powder 17 gm/Packet] 17 gm PO DAILYP PRN 01/09/18 Tramadol HCl [Ultram 50 mg Tablet] 100 mg PO Q8HP PRN 01/09/18 Azithromycin [Zithromax 250 mg Tablet] 250 mg PO DAILY #3 tablet 01/12/18 Benazepril/Hydrochlorothiazide [Benazepril-Hctz 20-12.5 mg Tab] 0.5 tab PO DAILY #0 01/12/18 Prednisone [Deltasone 5 mg Tablet] 5 mg PO DAILY #2 tablet 01/12/18 Allergies/Adverse Reactions: Iodinated Contrast- Oral and IV Dye [IV Dye, Iodine Containing] Allergy (Severe, Verified 06/11/18 13:57) Anaphylaxis Shellfish * [Shellfish] Allergy (Severe, Verified 06/11/18 13:57) Anaphylaxis walnut Allergy (Severe, Verified 06/11/18 13:57) Anaphylaxis acetaminophen [Acetaminophen] Allergy (Intermediate, Verified 06/11/18 13:57) nervousness Sulfa (Sulfonamide Antibiotics) Allergy (Intermediate, Verified 06/11/18 13:57) Hives meperidine HCl [From Demerol] Allergy (Mild, Verified 06/11/18 13:57) AMS Review of Systems Constitutional: PRESENT: as per HPI Eyes: PRESENT: other - Cataracts Ears: PRESENT: hearing changes - Very hard of hearing Nose, Mouth, and Throat: ABSENT: mouth pain - Despite coated tongue Cardiovascular: PRESENT: edema, orthropnea. ABSENT: chest pain Respiratory: PRESENT: cough, dyspnea. ABSENT: hemoptysis Gastrointestinal: PRESENT: constipation. ABSENT: abdominal pain, diarrhea, dysphagia, nausea, vomiting Genitourinary: ABSENT: dysuria, hematuria Musculoskeletal: PRESENT: other - Marked lower extremity edema Integumentary: ABSENT: diaphoresis, erythema, lesions Neurological: PRESENT: weakness - Systemic. ABSENT: abnormal speech, confusion Psychiatric: ABSENT: anxiety, depression Endocrine: ABSENT: cold intolerance, heat intolerance, polydipsia, polyuria Hematologic/Lymphatic: ABSENT: easy bleeding, easy bruising Physical Exam Vital Signs: Temp Pulse Resp BP Pulse Ox 98.5 F 123 H 18 127/95 H 98 06/11/18 14:07 06/11/18 14:07 06/11/18 14:07 06/11/18 14:07 06/11/18 14:07 Intake & Output 06/10/18 06/11/18 06/12/18 06:59 06:59 06:59 Weight 62.7 kg General appearance: PRESENT: cooperative, mild distress, well-developed Head exam: PRESENT: atraumatic, normocephalic Eye exam: PRESENT: conjunctiva pink, EOMI. ABSENT: periorbital swelling, scleral icterus Ear exam: PRESENT: normal external ear exam Mouth exam: PRESENT: dry mucosa, tongue midline, other - White coating on tongue Neck exam: ABSENT: carotid bruit, JVD, lymphadenopathy Respiratory exam: PRESENT: rhonchi - Bilateral, symmetrical. ABSENT: wheezes Cardiovascular exam: PRESENT: RRR, +S1, +S2 Pulses: PRESENT: normal radial pulses, +2 pedal pulses bilateral GI/Abdominal exam: PRESENT: normal bowel sounds, soft. ABSENT: distended, tenderness Rectal exam: PRESENT: deferred Extremities exam: PRESENT: +2 edema. ABSENT: calf tenderness, clubbing Neurological exam: PRESENT: alert, awake, oriented to person, oriented to place, oriented to situation, CN II-XII grossly intact Psychiatric exam: PRESENT: appropriate affect. ABSENT: agitated, anxious Focused psych exam: ABSENT: restlessness Skin exam: PRESENT: other - Thin skin with occasional bruises Results Laboratory Results: 06/11/18 14:32 06/11/18 16:34 06/11/18 06/11/18 06/11/18 14:32 14:32 15:40 WBC 14.1 H RBC 5.55 H Hgb 12.8 Hct 38.8 MCV 70 L MCH 23.1 L MCHC 33.0 RDW 19.6 H Plt Count 444 Seg Neutrophils % 85.4 H Lymphocytes % 10.0 L Monocytes % 4.2 Eosinophils % 0.1 Basophils % 0.3 Absolute Neutrophils 12.1 H Absolute Lymphocytes 1.4 Absolute Monocytes 0.6 Absolute Eosinophils 0.0 Absolute Basophils 0.0 Sodium 115.2 L* Potassium 3.9 Chloride 72 L Carbon Dioxide 33 H Anion Gap 10 BUN 15 Creatinine 0.65 Est GFR ( Amer) > 60 Est GFR (Non-Af Amer) > 60 Glucose 111 H Calcium 7.9 L Total Bilirubin 1.0 AST 28 ALT 21 Alkaline Phosphatase 137 H Total Protein 6.3 Albumin 3.1 L Urine Color YELLOW Urine Appearance CLEAR Urine pH 7.0 Ur Specific [place] 1.005 Urine Protein NEGATIVE Urine Glucose (UA) NEGATIVE Urine Ketones NEGATIVE Urine Blood SMALL H Urine Nitrite NEGATIVE Ur Leukocyte Esterase TRACE H Urine WBC (Auto) 3 Urine RBC (Auto) 5 06/11/18 16:34 WBC RBC Hgb Hct MCV MCH MCHC RDW Plt Count Seg Neutrophils % Lymphocytes % Monocytes % Eosinophils % Basophils % Absolute Neutrophils Absolute Lymphocytes Absolute Monocytes Absolute Eosinophils Absolute Basophils Sodium 116.0 L* Potassium 3.8 Chloride 72 L Carbon Dioxide 34 H Anion Gap 10 BUN 16 Creatinine 0.57 Est GFR ( Amer) > 60 Est GFR (Non-Af Amer) > 60 Glucose 108 Calcium 8.0 L Total Bilirubin AST ALT Alkaline Phosphatase Total Protein Albumin Urine Color Urine Appearance Urine pH Ur Specific [place] Urine Protein Urine Glucose (UA) Urine Ketones Urine Blood Urine Nitrite Ur Leukocyte Esterase Urine WBC (Auto) Urine RBC (Auto) Impressions: Chest X-Ray 06/11/18 14:19 IMPRESSION: Mild hyperinflation. Left basilar scarring. Otherwise, no acute disease. Assessment & Plan - Diagnosis (1) CAP (community acquired pneumonia) Qualifiers: Laterality: unspecified laterality Qualified Code(s): J18.9 - Pneumonia, unspecified organism Is this a current diagnosis for this admission?: Yes Plan: The patient has a very congested cough. She has a slightly elevated white blood cell count. I am going to start Rocephin and azithromycin for community-ac quired pneumonia. She was slightly hypoxic on admission and so she will have oxygen therapy. Mucolytic's and cough suppressants will be added. (2) Hyponatremia Is this a current diagnosis for this admission?: Yes Plan: The patient has had hyponatremia on several previous admissions. Reviewing her records there was a sodium of 125 approximately 6 weeks ago. She is much lower today. Because of her edema and cardiac history I am going to continue the furosemide at this time but watch her intake and output. In addition I am going to start a 1.2 L fluid restriction. I may need to decrease the furosemide depending on her response. (3) Hypoxia Is this a current diagnosis for this admission?: Yes Plan: Oxygen supplementation to keep saturations greater than 90% (4) Edema Qualifiers: Edema type: localized Qualified Code(s): R60.0 - Localized edema Is this a current diagnosis for this admission?: Yes Plan: Will use GEOVANY hose and elevate legs when possible. The patient might benefit from compression wraps but I do not want to shift fluid too quickly. (5) Paroxysmal atrial fibrillation Is this a current diagnosis for this admission?: Yes Plan: Good rate control. Continue metoprolol. (6) Current use of manager ent anticoagulation Is this a current diagnosis for this admission?: Yes Plan: Continue Eliquis 5 mg twice daily (7) Hearing loss Qualifiers: Hearing loss type: unspecified Laterality: bilateral Qualified Code(s): H91.93 - Unspecified hearing loss, bilateral Is this a current diagnosis for this admission?: Yes Plan: The patient's sister reports that she has had worsening hearing loss over the years. They have tried hearing aids but they were not successful. People just need to speak loudly. - Time Time Spent: 50 to 70 Minutes Medications reviewed and adjusted accordingly: Yes Anticipated discharge: Home - Inpatient Certification Based on my medical assessment, after consideration of the patient's comorbidities, presenting symptoms, or acuity I expect that the services needed warrant INPATIENT care.: Yes I certify that my determination is in accordance with my understanding of Medicare's requirements for reasonable and necessary INPATIENT services [42 CFR 412.3e].: Yes Medical Necessity: Failure to Improve With Outpatient Therapy, Need Close Monitoring Due to Risk of Patient Decompensation, Need For Continuous Telemetry Monitoring, Need for IV Antibiotics, Risk of Complication if Not Cared For in Hospital Post Hospital Care: D/C [employer] Rec[employer]iter Documentation
[2018-06-11] MEDS: FUROSEMIDE 40 MG TABLET PO SCH (18:18)
[2018-06-11] MEDS ORDERED: AZITHROMYCIN 500 MG in DEXTROSE 5%-WATER 250 ML IV ONE (19:00)
[2018-06-11] MEDS: GUAIFENESIN/D-METHORPHAN (200-20 MG) SYRUP 10 ML PO PRN (20:20)
[2018-06-11] MEDS ORDERED: AZITHROMYCIN INJ 500 MG VIAL IV ONE (21:03)
[2018-06-11] MEDS: GUAIFENESIN 600 MG TABLET.SA PO SCH (22:12)
[2018-06-11] MEDS: LORAZEPAM 0.5 MG TABLET PO PRN (22:12)
[2018-06-11] MEDS: APIXABAN 5 MG TABLET PO SCH (22:13)
[2018-06-11] MEDS: IPRATROPIUM/ALBUTEROL 0.5-2.5 MG/3 ML AMPUL NEB SCH (23:22)
[2018-06-12 05:22] LABS: ABSOLUTE LYMPHOCYTES (AUTO) 1.3 10^3/uL (0.5-4.7); ABSOLUTE MONOCYTES (AUTO) 1.1 10^3/uL (0.1-1.4); ABSOLUTE NEUT (AUTO) 14.1 10^3/uL (1.7-8.2); BASOPHILS % (AUTO) 0.3 % (0-2); EOSINOPHILS % (AUTO) 0.2 % (0-6); HEMATOCRIT 36.6 % (36.0-47.0); LYMPHOCYTES % (AUTO) 7.6 % (13-45); MEAN CORPUSCULAR HEMOGLOBIN 23.1 pg (27.0-33.4); MEAN CORPUSCULAR HGB CONC 32.9 g/dL (32.0-36.0); MEAN CORPUSCULAR VOLUME 70 fl (80-97); MONOCYTES % (AUTO) 6.5 % (3-13); PLATELET COUNT 319 10^3/uL (150-450); RED BLOOD COUNT 5.22 10^6/uL (3.72-5.28); SEGMENTED NEUTROPHILS % (AUTO) 85.4 % (42-78); TOTAL CELLS COUNTED % (AUTO) 100 %; WHITE BLOOD COUNT 16.5 10^3/uL (4.0-10.5)
[2018-06-12 05:36] LABS: BLOOD UREA NITROGEN 15 mg/dL (7-20); CALCIUM 7.3 mg/dL (8.4-10.2); CARBON DIOXIDE 34 mmol/L (22-30); CHLORIDE 77 mmol/L (98-107); GLUCOSE 101 mg/dL (75-110); POTASSIUM 3.4 mmol/L (3.6-5.0)
[2018-06-12 05:38] LABS: ANION GAP 6 (5-19)
[2018-06-12] MEDS: LANSOPRAZOLE 30 MG TAB.RAP.DR PO SCH (05:40)
[2018-06-12] MEDS: GUAIFENESIN/D-METHORPHAN (200-20 MG) SYRUP 10 ML PO PRN (05:40)
[2018-06-12 05:43] LABS: SODIUM 117.4 mmol/L (137-145)
[2018-06-12] MEDS: IPRATROPIUM/ALBUTEROL 0.5-2.5 MG/3 ML AMPUL NEB SCH ×2 (08:07→16:18)
[2018-06-12] MEDS: GUAIFENESIN 600 MG TABLET.SA PO SCH ×2 (09:13→21:37)
[2018-06-12] MEDS: METOPROLOL SUCCINATE 50 MG TAB.SR.24H PO SCH (09:13)
[2018-06-12] MEDS: FUROSEMIDE 40 MG TABLET PO SCH ×2 (09:13→17:45)
[2018-06-12] MEDS: APIXABAN 5 MG TABLET PO SCH ×2 (09:13→21:37)
[2018-06-12] MEDS: CEFTRIAXONE SODIUM 1,000 MG in DEXTROSE 5%-WATER 50 ML IV SCH (10:25)
--- NOTE | 2018-06-12 13:10 | RADIOLOGY REPORT (SQ) ---
EXAM DESCRIPTION: CHEST SINGLE VIEW COMPLETED DATE/TIME: 06/12/2018 12:40 pm REASON FOR STUDY: pneumonia COMPARISON: None. EXAM PARAMETERS: NUMBER OF VIEWS: One view. TECHNIQUE: Single frontal radiographic view of the chest acquired. RADIATION DOSE: NA LIMITATIONS: None. FINDINGS: LUNGS AND PLEURA: Persistent blunting of right costophrenic angle consistent with right pl eural thickening or effusion. Prominent pulmonary markings at right cardiophrenic angle attributed t o pulmonary vessels. Persistent linear density at left lung base which could represent chronic scarr ing. MEDIASTINUM AND HILAR STRUCTURES: No masses. Contour normal. HEART AND VASCULAR STRUCTURES: Borderline cardiomegaly and aortic atherosclerosis. BONES: No acute findings. HARDWARE: None in the chest. OTHER: No other significant finding. IMPRESSION: Borderline cardiac size. Right pleural thickening or effusion. TECHNICAL DOCUMENTATION: JOB ID: [id number] 2010 [employer]- All Rights Reserved Reading location - IP/workstation name: [email or web address]
[2018-06-12] MEDS ORDERED: BISACODYL 10 MG SUPP.RECT PR PRN (13:19)
--- NOTE | 2018-06-12 13:29 | EKG REPORT ---
SEVERITY:- ABNORMAL ECG - ATRIAL FIBRILLATION, V-RATE 60-80 : Confirmed by: José Miguel Norwood 12-Jun-2018 13:28:56
[2018-06-12] MEDS ORDERED: POTASSIUM CHLORIDE 20 MEQ/15 ML UDCUP PO ONE (16:48)
--- NOTE | 2018-06-12 16:57 | PDOC PROGRESS REPORT ---
Subjective Progress Note for:: 06/12/18 Subjective:: Appears about the same as yesterday. Still with very congested cough. Reason For Visit: PNEUMONIA,HYPONATREMIA,PAROXYSMAL A-FIB Physical Exam Vital Signs: Temp Pulse Resp BP Pulse Ox 97.9 F 79 16 136/69 H 98 06/12/18 15:49 06/12/18 16:18 06/12/18 16:18 06/12/18 15:49 06/12/18 16:18 Pulse Oximeter Continuous Start: 06/11/18 17:22 Freq: RTQ4 Status: Active Protocol: Document 06/12/18 16:18 [facility] (Rec: 06/12/18 16:24 [facility] [id number]) Pulse Oximetry Assessment Oxygen Saturation (92-100) 98 Oxygen Flow Rate (L/min) 2 Oxygen Delivery Method Nasal Cannula Fraction of Inspired Oxygen (FIO2) 28 Equipment Usage Equipment Standby Continuous SpO2 Machine # N-2 Intake & Output 06/11/18 06/12/18 06/13/18 06:59 06:59 06:59 Intake Total 550 970 Balance 550 970 Weight 62.7 kg General appearance: PRESENT: no acute distress, cooperative, well-developed - But very frail appearing female Head exam: PRESENT: atraumatic, normocephalic Mouth exam: PRESENT: dry mucosa Teeth exam: PRESENT: poor dentation Respiratory exam: PRESENT: rhonchi - Course congested breath sounds, other - Still with very congested cough. ABSENT: wheezes Cardiovascular exam: PRESENT: RRR, +S1, +S2 GI/Abdominal exam: PRESENT: normal bowel sounds, soft. ABSENT: distended, tenderness Extremities exam: PRESENT: +2 edema Neurological exam: PRESENT: alert, awake, oriented to person, oriented to place, oriented to situation, other - Significant hearing loss Psychiatric exam: PRESENT: appropriate affect. ABSENT: agitated, anxious Results Laboratory Results: 06/12/18 04:45 06/12/18 04:45 06/11/18 06/12/18 06/12/18 16:34 04:45 04:45 WBC 16.5 H RBC 5.22 Hgb 12.0 Hct 36.6 MCV 70 L MCH 23.1 L MCHC 32.9 RDW 19.0 H Plt Count 319 Seg Neutrophils % 85.4 H Lymphocytes % 7.6 L Monocytes % 6.5 Eosinophils % 0.2 Basophils % 0.3 Absolute Neutrophils 14.1 H Absolute Lymphocytes 1.3 Absolute Monocytes 1.1 Absolute Eosinophils 0.0 Absolute Basophils 0.0 Sodium 116.0 L* 117.4 L* Potassium 3.8 3.4 L Chloride 72 L 77 L Carbon Dioxide 34 H 34 H Anion Gap 10 6 BUN 16 15 Creatinine 0.57 0.54 Est GFR ( Amer) > 60 > 60 Est GFR (Non-Af Amer) > 60 > 60 Glucose 108 101 Calcium 8.0 L 7.3 L 06/12/18 04:45 NT-Pro-B Natriuret Pep 3450 H Impressions: Chest X-Ray 06/12/18 06:00 IMPRESSION: Borderline cardiac size. Right pleural thickening or effusion. Assessment & Plan - Diagnosis (1) CAP (community acquired pneumonia) Qualifiers: Laterality: unspecified laterality Qualified Code(s): J18.9 - Pneumonia, unspecified organism Is this a current diagnosis for this admission?: Yes Plan: Her white blood cell count was slightly higher today. Final sputum culture results not available as yet. We will continue current antibiotic therapy until more information on the sputum culture is obtained. (2) Hyponatremia Is this a current diagnosis for this admission?: Yes Plan: Minimal improvement today. I did start a fluid restriction. We should see a more noticeable rise in her serum sodium tomorrow. (3) Hypoxia Is this a current diagnosis for this admission?: Yes Plan: Improved. Still requires 2 L nasal cannula (4) Edema Qualifiers: Edema type: localized Qualified Code(s): R60.0 - Localized edema Is this a current diagnosis for this admission?: Yes Plan: This is a chronic issue. Elevate legs when possible. (5) Paroxysmal atrial fibrillation Is this a current diagnosis for this admission?: Yes Plan: By auscultation appears to be in a regular rhythm. 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 (7) Hearing loss Qualifiers: Hearing loss type: unspecified Laterality: bilateral Qualified Code(s): H91.93 - Unspecified hearing loss, bilateral Is this a current diagnosis for this admission?: Yes Plan: Chronic. Family reports hearing aids were not successful. - Time Time Spent with patient: 35 or more minutes Medications reviewed and adjusted accordingly: Yes
[2018-06-12] MEDS: DOCUSATE SODIUM 100 MG CAPSULE PO SCH (17:45)
[2018-06-12] MEDS: AZITHROMYCIN 500 MG in DEXTROSE 5%-WATER 250 ML IV SCH (17:46)
[2018-06-12] MEDS: POLYETHYLENE GLYCOL 3350 POWDER 17 GM/1 PACKET PO SCH (17:46)
[2018-06-12] MEDS: TRAMADOL HCL 50 MG TABLET PO PRN (20:42)
[2018-06-12] MEDS: LORAZEPAM 0.5 MG TABLET PO PRN (20:43)
[2018-06-12] MEDS ORDERED: CEFTRIAXONE 1 GM/D5W RTU 1 GM/50 ML RTUPB IV SCH (22:00)
[2018-06-13] MEDS: IPRATROPIUM/ALBUTEROL 0.5-2.5 MG/3 ML AMPUL NEB SCH ×4 (00:45→23:33)
[2018-06-13] MEDS: LANSOPRAZOLE 30 MG TAB.RAP.DR PO SCH (05:54)
[2018-06-13 06:36] LABS: ABSOLUTE LYMPHOCYTES (AUTO) 1.1 10^3/uL (0.5-4.7); ABSOLUTE MONOCYTES (AUTO) 0.5 10^3/uL (0.1-1.4); ABSOLUTE NEUT (AUTO) 12.2 10^3/uL (1.7-8.2); BASOPHILS % (AUTO) 0.2 % (0-2); EOSINOPHILS % (AUTO) 0.1 % (0-6); HEMATOCRIT 34.6 % (36.0-47.0); HEMOGLOBIN 11.1 g/dL (12.0-15.5); LYMPHOCYTES % (AUTO) 7.6 % (13-45); MEAN CORPUSCULAR HEMOGLOBIN 22.6 pg (27.0-33.4); MEAN CORPUSCULAR HGB CONC 32.2 g/dL (32.0-36.0); MEAN CORPUSCULAR VOLUME 70 fl (80-97); MONOCYTES % (AUTO) 3.7 % (3-13); PLATELET COUNT 309 10^3/uL (150-450); RED BLOOD COUNT 4.92 10^6/uL (3.72-5.28); RED CELL DISTRIBUTION WIDTH 19.7 % (11.5-14.0); SEGMENTED NEUTROPHILS % (AUTO) 88.4 % (42-78); TOTAL CELLS COUNTED % (AUTO) 100 %; WHITE BLOOD COUNT 13.9 10^3/uL (4.0-10.5)
[2018-06-13 06:53] LABS: ANION GAP 8 (5-19); BLOOD UREA NITROGEN 11 mg/dL (7-20); CALCIUM 7.5 mg/dL (8.4-10.2); CARBON DIOXIDE 33 mmol/L (22-30); CHLORIDE 75 mmol/L (98-107); GLUCOSE 109 mg/dL (75-110)
[2018-06-13 07:29] LABS: SODIUM 115.7 mmol/L (137-145)
[2018-06-13] MEDS: POTASSI CL 20 MEQ/50 ML RIDER 20 MEQ/50 ML RTUPB IV SCH ×2 (09:10→13:04)
[2018-06-13] MEDS ORDERED: MAGNESIUM SULFATE 4 GM/100 ML RTUPB IV ONE ×2 (09:30→15:45)
[2018-06-13] MEDS: FUROSEMIDE 40 MG TABLET PO SCH ×2 (10:23→18:14)
[2018-06-13] MEDS: POLYETHYLENE GLYCOL 3350 POWDER 17 GM/1 PACKET PO SCH ×2 (10:23→18:15)
[2018-06-13] MEDS: POTASSIUM CHLORIDE 20 MEQ/15 ML UDCUP PO SCH (10:24)
[2018-06-13] MEDS: DOCUSATE SODIUM 100 MG CAPSULE PO SCH ×2 (10:24→18:14)
[2018-06-13] MEDS: GUAIFENESIN 600 MG TABLET.SA PO SCH ×2 (10:24→21:13)
[2018-06-13] MEDS: METOPROLOL SUCCINATE 50 MG TAB.SR.24H PO SCH (10:24)
[2018-06-13] MEDS: APIXABAN 5 MG TABLET PO SCH ×2 (10:32→21:13)
[2018-06-13] MEDS: SODIUM CHLORIDE 1 GM TABLET PO SCH (10:32)
[2018-06-13] MEDS: CEFTRIAXONE SODIUM 1,000 MG in DEXTROSE 5%-WATER 50 ML IV SCH (12:06)
--- NOTE | 2018-06-13 14:47 | PDOC PROGRESS REPORT ---
Subjective Progress Note for:: 06/13/18 Subjective:: The patient is sitting up in bed. Just finished lunch. Still with a very congested cough. Reason For Visit: PNEUMONIA,HYPONATREMIA,PAROXYSMAL A-FIB Physical Exam Vital Signs: Temp Pulse Resp BP Pulse Ox 97.9 F 112 H 18 141/80 H 100 06/13/18 12:10 06/13/18 12:10 06/13/18 12:10 06/13/18 12:10 06/13/18 12:10 Pulse Oximeter Continuous Start: 06/11/18 17:22 Freq: RTQ4 Status: Active Protocol: Document 06/13/18 10:54 [facility] (Rec: 06/13/18 10:55 [facility] [id number]) Pulse Oximetry Assessment Oxygen Saturation (92-100) 98 Oxygen Flow Rate (L/min) 2 Oxygen Delivery Method Nasal Cannula Equipment Usage Equipment in Use Continuous SpO2 Machine # N2. Additional RT Notes Other N2. Called to patient's bedside for equipment problems . Intake & Output 06/12/18 06/13/18 06/14/18 06:59 06:59 06:59 Intake Total 550 1926 50 Balance 550 1926 50 Weight 62.7 kg General appearance: PRESENT: no acute distress, hard of hearing Teeth exam: PRESENT: edentulous Respiratory exam: PRESENT: rhonchi - Very coarse congested cough heard bilaterally, unlabored. ABSENT: rales, wheezes Cardiovascular exam: PRESENT: RRR, +S1, +S2 GI/Abdominal exam: PRESENT: hypoactive bowel sounds, soft. ABSENT: tenderness Neurological exam: PRESENT: alert, awake, oriented to person, oriented to place, oriented to situation Psychiatric exam: PRESENT: flat affect Results Laboratory Results: 06/13/18 05:50 06/13/18 05:50 06/13/18 06/13/18 05:50 05:50 WBC 13.9 H RBC 4.92 Hgb 11.1 L Hct 34.6 L MCV 70 L MCH 22.6 L MCHC 32.2 RDW 19.7 H Plt Count 309 Seg Neutrophils % 88.4 H Lymphocytes % 7.6 L Monocytes % 3.7 Eosinophils % 0.1 Basophils % 0.2 Absolute Neutrophils 12.2 H Absolute Lymphocytes 1.1 Absolute Monocytes 0.5 Absolute Eosinophils 0.0 Absolute Basophils 0.0 Sodium 115.7 L* Potassium 3.0 L* Chloride 75 L Carbon Dioxide 33 H Anion Gap 8 BUN 11 Creatinine 0.50 L Est GFR ( Amer) > 60 Est GFR (Non-Af Amer) > 60 Glucose 109 Calcium 7.5 L Magnesium 1.0 L* 06/11/18 15:40 Clean Catch Midstream Urine Culture - Final NO GROWTH 2 DAYS 06/12/18 04:45 NT-Pro-B Natriuret Pep 3450 H Impressions: Chest X-Ray 06/12/18 06:00 IMPRESSION: Borderline cardiac size. Right pleural thickening or effusion. Assessment & Plan - Diagnosis (1) CAP (community acquired pneumonia) Qualifiers: Laterality: unspecified laterality Qualified Code(s): J18.9 - Pneumonia, unspecified organism Is this a current diagnosis for this admission?: Yes Plan: Sputum cultures positive for gram-negative bacilli. I should have the sensitivities and identification tomorrow. This will help narrow the spectrum of the treatment. Her white cell count is improving daily. (2) Hyponatremia Is this a current diagnosis for this admission?: Yes Plan: Despite a fluid restriction her serum sodium was slightly lower. I have added a 1 g sodium chloride tablet and will monitor her progress. It is likely she will not be able to comply with a low-salt diet without significant fluid restriction. (3) Hypoxia Is this a current diagnosis for this admission?: Yes Plan: Continue nasal cannula oxygen. It is difficult to get accurate readings on continuous pulse oximetry so we will make it every 4 hours. (4) Edema Qualifiers: Edema type: localized Qualified Code(s): R60.0 - Localized edema Is this a current diagnosis for this admission?: Yes Plan: Her edema is chronic. She might benefit from compression therapy. I believe there is a component of venous insufficiency. (5) Paroxysmal atrial fibrillation Is this a current diagnosis for this admission?: Yes Plan: Continue metoprolol and apixaban. 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 I have ordered IV replacement and will check her electrolytes again. Monitor serum magnesium level and supplement as indicated. - Time Time Spent with patient: 15-24 minutes Medications reviewed and adjusted accordingly: Yes
[2018-06-13] MEDS: MAGNESIUM SULFATE/D5W 0 GM/0 ML RTUPB IV ONE ×2 (15:20→15:51)
[2018-06-13] MEDS ORDERED: BISACODYL 5 MG TABEC PO ONE (15:30)
[2018-06-13 17:32] LABS: ANION GAP 7 (5-19); BLOOD UREA NITROGEN 10 mg/dL (7-20); CALCIUM 7.8 mg/dL (8.4-10.2); CARBON DIOXIDE 34 mmol/L (22-30); CHLORIDE 77 mmol/L (98-107); GLUCOSE 121 mg/dL (75-110); POTASSIUM 3.7 mmol/L (3.6-5.0)
[2018-06-13 17:40] LABS: SODIUM 117.6 mmol/L (137-145)
[2018-06-13] MEDS: TRAMADOL HCL 50 MG TABLET PO PRN (18:17)
[2018-06-13] MEDS: AZITHROMYCIN 500 MG in DEXTROSE 5%-WATER 250 ML IV SCH (21:14)
[2018-06-14] MEDS: TRAMADOL HCL 50 MG TABLET PO PRN ×2 (02:39→13:26)
[2018-06-14] MEDS: LANSOPRAZOLE 30 MG TAB.RAP.DR PO SCH (05:23)
[2018-06-14 06:19] LABS: BLOOD UREA NITROGEN 10 mg/dL (7-20); GLUCOSE 108 mg/dL (75-110)
[2018-06-14 06:20] LABS: CARBON DIOXIDE 34 mmol/L (22-30); CHLORIDE 77 mmol/L (98-107); POTASSIUM 3.5 mmol/L (3.6-5.0)
[2018-06-14 06:22] LABS: ANION GAP 6 (5-19)
[2018-06-14 06:25] LABS: SODIUM 117.4 mmol/L (137-145)
[2018-06-14] MEDS: CEFTRIAXONE SODIUM 1,000 MG in DEXTROSE 5%-WATER 50 ML IV SCH (08:08)
[2018-06-14] MEDS: IPRATROPIUM/ALBUTEROL 0.5-2.5 MG/3 ML AMPUL NEB SCH ×2 (08:43→16:47)
[2018-06-14] MEDS: POTASSIUM CHLORIDE 20 MEQ/15 ML UDCUP PO SCH ×2 (09:40→17:27)
[2018-06-14] MEDS: FUROSEMIDE 40 MG TABLET PO SCH (09:41)
[2018-06-14] MEDS: METOPROLOL SUCCINATE 50 MG TAB.SR.24H PO SCH (09:41)
[2018-06-14] MEDS: APIXABAN 5 MG TABLET PO SCH ×2 (09:41→22:44)
[2018-06-14] MEDS: GUAIFENESIN 600 MG TABLET.SA PO SCH ×2 (09:41→22:44)
[2018-06-14] MEDS: DOCUSATE SODIUM 100 MG CAPSULE PO SCH ×2 (09:42→17:27)
[2018-06-14] MEDS: POLYETHYLENE GLYCOL 3350 POWDER 17 GM/1 PACKET PO SCH ×2 (09:42→17:27)
[2018-06-14] MEDS: SODIUM CHLORIDE 1 GM TABLET PO SCH ×2 (09:46→18:01)
[2018-06-14] MEDS: GUAIFENESIN/D-METHORPHAN (200-20 MG) SYRUP 10 ML PO PRN (13:02)
[2018-06-14] MEDS: AZITHROMYCIN 500 MG in DEXTROSE 5%-WATER 250 ML IV SCH (17:26)
[2018-06-14] MEDS: LORAZEPAM 0.5 MG TABLET PO PRN (22:44)
[2018-06-15] MEDS: IPRATROPIUM/ALBUTEROL 0.5-2.5 MG/3 ML AMPUL NEB SCH ×4 (00:10→23:57)
[2018-06-15] MEDS: LANSOPRAZOLE 30 MG TAB.RAP.DR PO SCH (05:38)
[2018-06-15] MEDS: GUAIFENESIN/D-METHORPHAN (200-20 MG) SYRUP 10 ML PO PRN (05:39)
[2018-06-15 07:15] LABS: HEMOGLOBIN 11.4 g/dL (12.0-15.5); MEAN CORPUSCULAR HEMOGLOBIN 23.1 pg (27.0-33.4); MEAN CORPUSCULAR HGB CONC 32.5 g/dL (32.0-36.0); MEAN CORPUSCULAR VOLUME 71 fl (80-97); PLATELET COUNT 313 10^3/uL (150-450); RED BLOOD COUNT 4.92 10^6/uL (3.72-5.28); RED CELL DISTRIBUTION WIDTH 19.6 % (11.5-14.0); WHITE BLOOD COUNT 7.4 10^3/uL (4.0-10.5)
[2018-06-15 07:26] LABS: ANION GAP 5 (5-19); BLOOD UREA NITROGEN 9 mg/dL (7-20); CALCIUM 8.3 mg/dL (8.4-10.2); CARBON DIOXIDE 35 mmol/L (22-30); CHLORIDE 82 mmol/L (98-107); GLUCOSE 111 mg/dL (75-110); POTASSIUM 3.7 mmol/L (3.6-5.0); SODIUM 122.3 mmol/L (137-145)
[2018-06-15] MEDS: DOCUSATE SODIUM 100 MG CAPSULE PO SCH ×2 (10:08→19:00)
[2018-06-15] MEDS: POLYETHYLENE GLYCOL 3350 POWDER 17 GM/1 PACKET PO SCH ×2 (10:08→19:00)
[2018-06-15] MEDS: POTASSIUM CHLORIDE 20 MEQ/15 ML UDCUP PO SCH ×2 (10:14→19:06)
[2018-06-15] MEDS: METOPROLOL SUCCINATE 50 MG TAB.SR.24H PO SCH (10:15)
[2018-06-15] MEDS: GUAIFENESIN 600 MG TABLET.SA PO SCH ×2 (10:15→21:39)
[2018-06-15] MEDS: FUROSEMIDE 40 MG TABLET PO SCH (10:15)
[2018-06-15] MEDS: SODIUM CHLORIDE 1 GM TABLET PO SCH ×3 (10:23→19:06)
[2018-06-15] MEDS: CEFTRIAXONE SODIUM 1,000 MG in DEXTROSE 5%-WATER 50 ML IV SCH (10:23)
[2018-06-15] MEDS: APIXABAN 5 MG TABLET PO SCH ×2 (10:24→21:40)
[2018-06-15] MEDS: AZITHROMYCIN 500 MG in DEXTROSE 5%-WATER 250 ML IV SCH (19:06)
[2018-06-15] MEDS: TRAMADOL HCL 50 MG TABLET PO PRN (21:39)
[2018-06-15] MEDS: LORAZEPAM 0.5 MG TABLET PO PRN (21:39)
[2018-06-16] MEDS: GUAIFENESIN/D-METHORPHAN (200-20 MG) SYRUP 10 ML PO PRN ×2 (01:17→21:29)
[2018-06-16] MEDS: LANSOPRAZOLE 30 MG TAB.RAP.DR PO SCH (05:54)
[2018-06-16 09:09] LABS: HEMATOCRIT 35.1 % (36.0-47.0); HEMOGLOBIN 11.5 g/dL (12.0-15.5); MEAN CORPUSCULAR HEMOGLOBIN 23.2 pg (27.0-33.4); MEAN CORPUSCULAR HGB CONC 32.7 g/dL (32.0-36.0); MEAN CORPUSCULAR VOLUME 71 fl (80-97); PLATELET COUNT 368 10^3/uL (150-450); RED BLOOD COUNT 4.95 10^6/uL (3.72-5.28); RED CELL DISTRIBUTION WIDTH 19.8 % (11.5-14.0); WHITE BLOOD COUNT 7.4 10^3/uL (4.0-10.5)
[2018-06-16] MEDS: IPRATROPIUM/ALBUTEROL 0.5-2.5 MG/3 ML AMPUL NEB SCH ×2 (09:13→16:53)
[2018-06-16 09:21] LABS: ANION GAP 9 (5-19); BLOOD UREA NITROGEN 12 mg/dL (7-20); CALCIUM 8.1 mg/dL (8.4-10.2); CARBON DIOXIDE 30 mmol/L (22-30); CHLORIDE 84 mmol/L (98-107); GLUCOSE 145 mg/dL (75-110); POTASSIUM 3.8 mmol/L (3.6-5.0); SODIUM 123.4 mmol/L (137-145)
[2018-06-16 09:37] LABS: ABSOLUTE LYMPHOCYTES# (MANUAL) 0.3 10^3/uL (0.5-4.7); ABSOLUTE MONOCYTES # (MANUAL) 0.2 10^3/uL (0.1-1.4); ABSOLUTE NEUTROPHILS# (MANUAL) 6.9 10^3/uL (1.7-8.2); ANISOCYTOSIS 2+; BASOPHILS % (MANUAL) 0 % (0-2); BURR CELLS 1+; EOSINOPHILS % (MANUAL) 0 % (0-6); HYPOCHROMASIA 1+; LYMPHOCYTES % (MANUAL) 4 % (13-45); MONOCYTES % (MANUAL) 3 % (3-13); OVALOCYTES 1+; PLATELET COMMENT ADEQUATE; PLATELET LARGE PRESENT; POIKILOCYTOSIS 3+; POLYCHROMASIA SLIGHT; SCHISTOCYTES 1+; SEGMENTED NEUTROPHILS % (MAN) 93 % (42-78); TOTAL CELLS COUNTED 100; TOXIC GRANULATION 2+
[2018-06-16] MEDS: DOCUSATE SODIUM 100 MG CAPSULE PO SCH ×2 (09:38→17:08)
[2018-06-16] MEDS: POLYETHYLENE GLYCOL 3350 POWDER 17 GM/1 PACKET PO SCH ×2 (09:38→17:09)
[2018-06-16] MEDS: APIXABAN 5 MG TABLET PO SCH ×2 (09:43→21:29)
[2018-06-16] MEDS: GUAIFENESIN 600 MG TABLET.SA PO SCH ×2 (09:43→21:29)
[2018-06-16] MEDS: FUROSEMIDE 40 MG TABLET PO SCH (09:43)
[2018-06-16] MEDS: POTASSIUM CHLORIDE 20 MEQ/15 ML UDCUP PO SCH ×2 (09:43→17:16)
[2018-06-16] MEDS: METOPROLOL SUCCINATE 50 MG TAB.SR.24H PO SCH (09:43)
[2018-06-16] MEDS: SODIUM CHLORIDE 1 GM TABLET PO SCH ×3 (09:47→17:17)
[2018-06-16] MEDS: CEFTRIAXONE SODIUM 1,000 MG in DEXTROSE 5%-WATER 50 ML IV SCH (09:47)
--- NOTE | 2018-06-16 10:35 | PDOC PROGRESS REPORT ---
Subjective Progress Note for:: 06/15/18 Subjective:: Feels she is slowly improving. Denies fever or chills, chest pain or palpitations. Shortness of breath improving. Reason For Visit: PNEUMONIA,HYPONATREMIA,PAROXYSMAL A-FIB Physical Exam Vital Signs: Temp Pulse Resp BP Pulse Ox 97.5 F 76 16 112/62 100 06/15/18 19:48 06/15/18 19:48 06/15/18 19:48 06/15/18 19:48 06/15/18 19:48 Pulse Oximeter Continuous Start: 06/11/18 17:22 Freq: RTQ4 Status: Complete Protocol: Document 06/13/18 10:54 [facility] (Rec: 06/13/18 10:55 [facility] [id number]) Pulse Oximetry Assessment Oxygen Saturation (92-100) 98 Oxygen Flow Rate (L/min) 2 Oxygen Delivery Method Nasal Cannula Equipment Usage Equipment in Use Continuous SpO2 Machine # N2. Additional RT Notes Other N2. Called to patient's bedside for equipment problems . Intake & Output 06/14/18 06/15/18 06/16/18 06:59 06:59 06:59 Intake Total 800 1320 522 Balance 800 1320 522 Weight 62 kg 46.7 kg General appearance: PRESENT: no acute distress, hard of hearing Teeth exam: PRESENT: edentulous Respiratory exam: PRESENT: rhonchi - Very coarse congested cough heard bilaterally, unlabored. ABSENT: rales, wheezes Cardiovascular exam: PRESENT: RRR, +S1, +S2 GI/Abdominal exam: PRESENT: hypoactive bowel sounds, soft. ABSENT: tenderness Neurological exam: PRESENT: Hard of hearing. Alert, awake, oriented to person, oriented to place, oriented to situation Psychiatric exam: PRESENT: Normal affect Results Laboratory Results: 06/15/18 06:30 06/15/18 06:30 06/15/18 06/15/18 06:30 06:30 WBC 7.4 RBC 4.92 Hgb 11.4 L Hct 35.0 L MCV 71 L MCH 23.1 L MCHC 32.5 RDW 19.6 H Plt Count 313 Sodium 122.3 L Potassium 3.7 Chloride 82 L Carbon Dioxide 35 H Anion Gap 5 BUN 9 Creatinine 0.52 Est GFR ( Amer) > 60 Est GFR (Non-Af Amer) > 60 Glucose 111 H Calcium 8.3 L Magnesium 1.6 06/12/18 04:45 NT-Pro-B Natriuret Pep 3450 H Impressions: Chest X-Ray 06/12/18 06:00 IMPRESSION: Borderline cardiac size. Right pleural thickening or effusion. Assessment & Plan - Diagnosis (1) Hyponatremia Is this a current diagnosis for this admission?: Yes (2) Edema Qualifiers: Edema type: localized Qualified Code(s): R60.0 - Localized edema Is this a current diagnosis for this admission?: Yes (3) CAP (community acquired pneumonia) Qualifiers: Laterality: unspecified laterality Qualified Code(s): J18.9 - Pneumonia, unspecified organism Is this a current diagnosis for this admission?: Yes (4) Hearing loss Qualifiers: Hearing loss type: unspecified Laterality: bilateral Qualified Code(s): H91.93 - Unspecified hearing loss, bilateral Is this a current diagnosis for this admission?: Yes (5) Hypoxia Is this a current diagnosis for this admission?: Yes (6) Paroxysmal atrial fibrillation Is this a current diagnosis for this admission?: Yes (7) Hypomagnesemia Is this a current diagnosis for this admission?: Yes - Plan Summary Plan Summary: Patient slowly improving. We will continue antibiotics regimen with Rocephin and azithromycin. Sodium better today with adding sodium tablets to regimen. Will continue current regimen and follow-up CBC and Chem-7 in a.m.
--- NOTE | 2018-06-16 10:52 | PDOC PROGRESS REPORT ---
Subjective Progress Note for:: 06/16/18 Subjective:: Continues to feel she is slowly improving. Asking when she can go home. Denies fever or chills, chest pain or palpitations. Shortness of breath improving. She still has cough, but nonproductive. Reason For Visit: PNEUMONIA,HYPONATREMIA,PAROXYSMAL A-FIB Physical Exam Vital Signs: Temp Pulse Resp BP Pulse Ox 98.0 F 122 H 20 118/72 97 06/16/18 08:16 06/16/18 09:13 06/16/18 09:13 06/16/18 08:16 06/16/18 09:13 Pulse Oximeter Continuous Start: 06/11/18 17:22 Freq: RTQ4 Status: Complete Protocol: Document 06/13/18 10:54 [facility] (Rec: 06/13/18 10:55 [facility] [id number]) Pulse Oximetry Assessment Oxygen Saturation (92-100) 98 Oxygen Flow Rate (L/min) 2 Oxygen Delivery Method Nasal Cannula Equipment Usage Equipment in Use Continuous SpO2 Machine # N2. Additional RT Notes Other N2. Called to patient's bedside for equipment problems . Intake & Output 06/15/18 06/16/18 06/17/18 06:59 06:59 06:59 Intake Total 1320 1009 Balance 1320 1009 Weight 46.7 kg 46.7 kg General appearance: PRESENT: no acute distress, hard of hearing Teeth exam: PRESENT: edentulous Respiratory exam: PRESENT: rhonchi/coarse breath sound bilaterally, unlabored. ABSENT: rales, wheezes Cardiovascular exam: PRESENT: RRR, +S1, +S2 GI/Abdominal exam: PRESENT: hypoactive bowel sounds, soft. ABSENT: tenderness Neurological exam: PRESENT: Hard of hearing. Alert, awake, oriented to person, oriented to place, oriented to situation Psychiatric exam: PRESENT: Normal affect Results Laboratory Results: 06/16/18 08:54 06/16/18 08:54 06/16/18 06/16/18 08:54 08:54 WBC 7.4 RBC 4.95 Hgb 11.5 L Hct 35.1 L MCV 71 L MCH 23.2 L MCHC 32.7 RDW 19.8 H Plt Count 368 Seg Neutrophils % Not Reportable Lymphocytes % Not Reportable Monocytes % Not Reportable Eosinophils % Not Reportable Basophils % Not Reportable Absolute Neutrophils Not Reportable Absolute Lymphocytes Not Reportable Absolute Monocytes Not Reportable Absolute Eosinophils Not Reportable Absolute Basophils Not Reportable Sodium 123.4 L Potassium 3.8 Chloride 84 L Carbon Dioxide 30 Anion Gap 9 BUN 12 Creatinine 0.44 L Est GFR ( Amer) > 60 Est GFR (Non-Af Amer) > 60 Glucose 145 H Calcium 8.1 L Magnesium 1.3 L 06/12/18 04:45 NT-Pro-B Natriuret Pep 3450 H Impressions: Chest X-Ray 06/12/18 06:00 IMPRESSION: Borderline cardiac size. Right pleural thickening or effusion. Assessment & Plan - Diagnosis (1) Hyponatremia Is this a current diagnosis for this admission?: Yes (2) CAP (community acquired pneumonia) Qualifiers: Laterality: unspecified laterality Qualified Code(s): J18.9 - Pneumonia, unspecified organism Is this a current diagnosis for this admission?: Yes (3) Edema Qualifiers: Edema type: localized Qualified Code(s): R60.0 - Localized edema Is this a current diagnosis for this admission?: Yes (4) Hearing loss Qualifiers: Hearing loss type: unspecified Laterality: bilateral Qualified Code(s): H91.93 - Unspecified hearing loss, bilateral Is this a current diagnosis for this admission?: Yes (5) Hypoxia Is this a current diagnosis for this admission?: Yes (6) Paroxysmal atrial fibrillation Is this a current diagnosis for this admission?: Yes (7) Hypomagnesemia Is this a current diagnosis for this admission?: Yes - Plan Summary Plan Summary: Sodium continues to slowly improve. We will continue current regimen including fluid restriction and salt tablets. For suspected community-acquired pneumonia, sputum culture growing Pseudomonas. We will discontinue Rocephin antibiotics and start cefepime. Will complete azithromycin course. Magnesium again low today, will replete with IV and add p.o. Follow-up magnesium, CBC and Chem-7 in a.m.
[2018-06-16] MEDS: MAGNESIUM SULFATE/D5W 1 GM/100 ML RTUPB IV SCH ×2 (11:58→13:34)
[2018-06-16] MEDS: TRAMADOL HCL 50 MG TABLET PO PRN (12:02)
[2018-06-16] MEDS: CEFEPIME 2 GM/D5W RTU 2 GM/50 ML RTUPB IV SCH ×2 (14:24→22:21)
[2018-06-16] MEDS: AZITHROMYCIN 500 MG in DEXTROSE 5%-WATER 250 ML IV SCH (17:17)
[2018-06-16] MEDS: MAGNESIUM OXIDE 400 MG TABLET PO SCH (17:17)
[2018-06-16] MEDS: LORAZEPAM 0.5 MG TABLET PO PRN (21:29)
[2018-06-17] MEDS: IPRATROPIUM/ALBUTEROL 0.5-2.5 MG/3 ML AMPUL NEB SCH ×3 (00:16→16:08)
[2018-06-17] MEDS: TRAMADOL HCL 50 MG TABLET PO PRN ×3 (01:29→21:55)
[2018-06-17] MEDS: LANSOPRAZOLE 30 MG TAB.RAP.DR PO SCH (05:07)
[2018-06-17 06:00] LABS: HEMATOCRIT 32.3 % (36.0-47.0); HEMOGLOBIN 10.7 g/dL (12.0-15.5); MEAN CORPUSCULAR HEMOGLOBIN 23.4 pg (27.0-33.4); MEAN CORPUSCULAR HGB CONC 33.3 g/dL (32.0-36.0); MEAN CORPUSCULAR VOLUME 70 fl (80-97); PLATELET COUNT 331 10^3/uL (150-450); RED BLOOD COUNT 4.59 10^6/uL (3.72-5.28); RED CELL DISTRIBUTION WIDTH 19.6 % (11.5-14.0); WHITE BLOOD COUNT 7.7 10^3/uL (4.0-10.5)
[2018-06-17 06:12] LABS: ANION GAP 10 (5-19); BLOOD UREA NITROGEN 15 mg/dL (7-20); CARBON DIOXIDE 28 mmol/L (22-30); CHLORIDE 84 mmol/L (98-107); GLUCOSE 95 mg/dL (75-110); POTASSIUM 4.2 mmol/L (3.6-5.0); SODIUM 121.9 mmol/L (137-145)
[2018-06-17 07:49] LABS: ABSOLUTE LYMPHOCYTES# (MANUAL) 0.7 10^3/uL (0.5-4.7); ABSOLUTE MONOCYTES # (MANUAL) 0.4 10^3/uL (0.1-1.4); ABSOLUTE NEUTROPHILS# (MANUAL) 6.4 10^3/uL (1.7-8.2); BASOPHILS % (MANUAL) 1 % (0-2); EOSINOPHILS % (MANUAL) 2 % (0-6); LYMPHOCYTES % (MANUAL) 9 % (13-45); MONOCYTES % (MANUAL) 5 % (3-13); SEGMENTED NEUTROPHILS % (MAN) 83 % (42-78); TOTAL CELLS COUNTED 100
[2018-06-17 07:51] LABS: ANISOCYTOSIS 2+; BURR CELLS 1+; HYPOCHROMASIA 2+; OVALOCYTES 2+; PLATELET COMMENT ADEQUATE; POIKILOCYTOSIS 3+; TARGET CELLS SLIGHT
[2018-06-17] MEDS: GUAIFENESIN 600 MG TABLET.SA PO SCH ×2 (10:04→21:54)
[2018-06-17] MEDS: FUROSEMIDE 40 MG TABLET PO SCH (10:04)
[2018-06-17] MEDS: POTASSIUM CHLORIDE 20 MEQ/15 ML UDCUP PO SCH ×2 (10:04→18:03)
[2018-06-17] MEDS: POLYETHYLENE GLYCOL 3350 POWDER 17 GM/1 PACKET PO SCH ×2 (10:05→18:04)
[2018-06-17] MEDS: APIXABAN 5 MG TABLET PO SCH ×2 (10:05→21:56)
[2018-06-17] MEDS: DOCUSATE SODIUM 100 MG CAPSULE PO SCH ×2 (10:05→18:03)
[2018-06-17] MEDS: MAGNESIUM OXIDE 400 MG TABLET PO SCH ×2 (10:05→18:03)
[2018-06-17] MEDS: METOPROLOL SUCCINATE 50 MG TAB.SR.24H PO SCH (10:05)
[2018-06-17] MEDS: SODIUM CHLORIDE 1 GM TABLET PO SCH ×3 (10:17→18:04)
[2018-06-17] MEDS: CEFEPIME 2 GM/D5W RTU 2 GM/50 ML RTUPB IV SCH ×2 (10:18→21:56)
[2018-06-17] MEDS: AZITHROMYCIN 500 MG in DEXTROSE 5%-WATER 250 ML IV SCH (18:03)
[2018-06-17] MEDS: GUAIFENESIN/D-METHORPHAN (200-20 MG) SYRUP 10 ML PO PRN (21:55)
[2018-06-18] MEDS: IPRATROPIUM/ALBUTEROL 0.5-2.5 MG/3 ML AMPUL NEB SCH ×4 (00:15→23:03)
[2018-06-18] MEDS: LANSOPRAZOLE 30 MG TAB.RAP.DR PO SCH (06:23)
[2018-06-18 09:16] LABS: ANION GAP 7 (5-19); BLOOD UREA NITROGEN 17 mg/dL (7-20); CALCIUM 8.5 mg/dL (8.4-10.2); CARBON DIOXIDE 33 mmol/L (22-30); CHLORIDE 85 mmol/L (98-107); GLUCOSE 96 mg/dL (75-110); POTASSIUM 4.6 mmol/L (3.6-5.0); SODIUM 124.7 mmol/L (137-145)
[2018-06-18] MEDS: METOPROLOL SUCCINATE 50 MG TAB.SR.24H PO SCH (11:29)
[2018-06-18] MEDS: POTASSIUM CHLORIDE 20 MEQ/15 ML UDCUP PO SCH ×2 (11:29→17:42)
[2018-06-18] MEDS: MAGNESIUM OXIDE 400 MG TABLET PO SCH ×2 (11:30→17:43)
[2018-06-18] MEDS: DOCUSATE SODIUM 100 MG CAPSULE PO SCH ×2 (11:30→17:43)
[2018-06-18] MEDS: POLYETHYLENE GLYCOL 3350 POWDER 17 GM/1 PACKET PO SCH ×2 (11:31→17:43)
[2018-06-18] MEDS: FUROSEMIDE 40 MG TABLET PO SCH (11:31)
[2018-06-18] MEDS: GUAIFENESIN 600 MG TABLET.SA PO SCH ×2 (11:31→21:10)
[2018-06-18] MEDS: CEFEPIME 2 GM/D5W RTU 2 GM/50 ML RTUPB IV SCH ×2 (11:32→21:10)
[2018-06-18] MEDS: APIXABAN 5 MG TABLET PO SCH ×2 (11:33→21:10)
[2018-06-18] MEDS: TRAMADOL HCL 50 MG TABLET PO PRN ×2 (11:41→21:10)
[2018-06-18] MEDS: SODIUM CHLORIDE 1 GM TABLET PO SCH ×3 (11:41→17:47)
--- NOTE | 2018-06-18 12:47 | PDOC PROGRESS REPORT ---
Subjective Progress Note for:: 06/17/18 Subjective:: Continues to feel she is slowly improving. No headaches, no seizures. States trying to adhere with fluid restriction. Denies fever or chills, chest pain or palpitations. Shortness of breath improving. Cough better. Reason For Visit: PNEUMONIA,HYPONATREMIA,PAROXYSMAL A-FIB Physical Exam Vital Signs: Temp Pulse Resp BP Pulse Ox 98.0 F 89 20 115/66 96 06/18/18 07:11 06/18/18 08:55 06/18/18 08:55 06/18/18 07:11 06/18/18 08:55 Pulse Oximeter Continuous Start: 06/11/18 17:22 Freq: RTQ4 Status: Complete Protocol: Document 06/13/18 10:54 [facility] (Rec: 06/13/18 10:55 [facility] [id number]) Pulse Oximetry Assessment Oxygen Saturation (92-100) 98 Oxygen Flow Rate (L/min) 2 Oxygen Delivery Method Nasal Cannula Equipment Usage Equipment in Use Continuous SpO2 Machine # N2. Additional RT Notes Other N2. Called to patient's bedside for equipment problems . Intake & Output 06/17/18 06/18/18 06/19/18 06:59 06:59 06:59 Intake Total 1407 1240 Balance 1407 1240 Weight 46.7 kg 51.3 kg General appearance: PRESENT: no acute distress, hard of hearing Respiratory exam: PRESENT: Scattered rhonchi rhonchi/coarse breath sound bilaterally, unlabored. ABSENT: rales, wheezes Cardiovascular exam: PRESENT: RRR, +S1, +S2 GI/Abdominal exam: PRESENT: hypoactive bowel sounds, soft. ABSENT: tenderness Neurological exam: PRESENT: Hard of hearing. Alert, awake, oriented to person, oriented to place, oriented to situation Psychiatric exam: PRESENT: Normal affect Results Laboratory Results: 06/17/18 04:40 06/18/18 08:38 06/18/18 08:38 Sodium 124.7 L Potassium 4.6 Chloride 85 L Carbon Dioxide 33 H Anion Gap 7 BUN 17 Creatinine 0.57 Est GFR ( Amer) > 60 Est GFR (Non-Af Amer) > 60 Glucose 96 Calcium 8.5 06/12/18 10:05 Blood Blood Culture - Final NO GROWTH IN 5 DAYS 06/12/18 10:20 Blood Blood Culture - Final NO GROWTH IN 5 DAYS 06/12/18 04:45 NT-Pro-B Natriuret Pep 3450 H Impressions: Chest X-Ray 06/12/18 06:00 IMPRESSION: Borderline cardiac size. Right pleural thickening or effusion. Assessment & Plan - Diagnosis (1) Hyponatremia Is this a current diagnosis for this admission?: Yes (2) CAP (community acquired pneumonia) Qualifiers: Laterality: unspecified laterality Qualified Code(s): J18.9 - Pneumonia, unspecified organism Is this a current diagnosis for this admission?: Yes (3) Edema Qualifiers: Edema type: localized Qualified Code(s): R60.0 - Localized edema Is this a current diagnosis for this admission?: Yes (4) Hearing loss Qualifiers: Hearing loss type: unspecified Laterality: bilateral Qualified Code(s): H 91.93 - Unspecified hearing loss, bilateral Is this a current diagnosis for this admission?: Yes (5) Hypoxia Is this a current diagnosis for this admission?: Yes (6) Paroxysmal atrial fibrillation Is this a current diagnosis for this admission?: Yes (7) Hypomagnesemia Is this a current diagnosis for this admission?: Yes - Plan Summary Plan Summary: Sodium is slightly down today. We will continue salt tablets. Also fluid restriction, patient counseled about adhering to this. For suspected community-acquired pneumonia, sputum culture growing Pseudomonas. Rocephin was discontinued 06/16/18 and cefepime startedwill continue. Will also complete azithromycin course. Magnesium normal today, will continue p.o. for now.
--- NOTE | 2018-06-18 12:53 | PDOC PROGRESS REPORT ---
Subjective Progress Note for:: 06/18/18 Subjective:: Continues to feel she is slowly improving. Denies headache, no seizures. Denies fever or chills, chest pain or palpitations. Shortness of breath improved. Cough has improved, nonproductive. Reason For Visit: PNEUMONIA,HYPONATREMIA,PAROXYSMAL A-FIB Physical Exam Vital Signs: Temp Pulse Resp BP Pulse Ox 98.1 F 98 22 H 113/64 97 06/18/18 11:20 06/18/18 11:20 06/18/18 11:20 06/18/18 11:20 06/18/18 11:20 Pulse Oximeter Continuous Start: 06/11/18 17:22 Freq: RTQ4 Status: Complete Protocol: Document 06/13/18 10:54 [facility] (Rec: 06/13/18 10:55 [facility] [id number]) Pulse Oximetry Assessment Oxygen Saturation (92-100) 98 Oxygen Flow Rate (L/min) 2 Oxygen Delivery Method Nasal Cannula Equipment Usage Equipment in Use Continuous SpO2 Machine # N2. Additional RT Notes Other N2. Called to patient's bedside for equipment problems . Intake & Output 06/17/18 06/18/18 06/19/18 06:59 06:59 06:59 Intake Total 1407 1240 Balance 1407 1240 Weight 46.7 kg 51.3 kg General appearance: PRESENT: no acute distress, hard of hearing Teeth exam: PRESENT: edentulous Respiratory exam: PRESENT: Scattered rhonchi/coarse breath sound bilaterally, unlabored. ABSENT: rales, wheezes Cardiovascular exam: PRESENT: RRR, +S1, +S2 GI/Abdominal exam: PRESENT: hypoactive bowel sounds, soft. ABSENT: tenderness Neurological exam: PRESENT: Hard of hearing. Alert, awake, oriented to person, oriented to place, oriented to situation Psychiatric exam: PRESENT: Normal affect Results Laboratory Results: 06/17/18 04:40 06/18/18 08:38 06/18/18 08:38 Sodium 124.7 L Potassium 4.6 Chloride 85 L Carbon Dioxide 33 H Anion Gap 7 BUN 17 Creatinine 0.57 Est GFR ( Amer) > 60 Est GFR (Non-Af Amer) > 60 Glucose 96 Calcium 8.5 06/12/18 10:05 Blood Blood Culture - Final NO GROWTH IN 5 DAYS 06/12/18 10:20 Blood Blood Culture - Final NO GROWTH IN 5 DAYS 06/12/18 04:45 NT-Pro-B Natriuret Pep 3450 H Impressions: Chest X-Ray 06/12/18 06:00 IMPRESSION: Borderline cardiac size. Right pleural thickening or effusion. Assessment & Plan - Diagnosis (1) Hyponatremia Is this a current diagnosis for this admission?: Yes (2) CAP (community acquired pneumonia) Qualifiers: Laterality: unspecified laterality Qualified Code(s): J18.9 - Pneumonia, unspecified organism Is this a current diagnosis for this admission?: Yes (3) Edema Qualifiers: Edema type: localized Qualified Code(s): R60.0 - Localized edema Is this a current diagnosis for this admission?: Yes (4) Hearing loss Qualifiers: Hearing loss type: unspecified Laterality: bilateral Qualified Code(s): H91.93 - Unspecified hearing loss, bilateral Is this a current diagnosis for this admission?: Yes (5) Hypoxia Is this a current diagnosis for this admission?: Yes (6) Paroxysmal atrial fibrillation Is this a current diagnosis for this admission?: Yes (7) Hypomagnesemia Is this a current diagnosis for this admission?: Yes - Plan Summary Plan Summary: Sodium back to slowly improving. We will continue current regimen including fluid restriction and salt tablets. For suspected community-acquired pneumonia, sputum culture growing Pseudomonas. Rocephin was discontinued 06/16/18 and cefepime startedwill continue. Blood cultures negative times 5 days. Will also complete azithromycin course. Magnesium normal yesterday following repletion the day before, will continue p.o. for now. Follow-up magnesium, CBC and Chem-7 in a.m.
[2018-06-18] MEDS: AZITHROMYCIN 500 MG in DEXTROSE 5%-WATER 250 ML IV SCH (17:44)
[2018-06-18] MEDS: GUAIFENESIN/D-METHORPHAN (200-20 MG) SYRUP 10 ML PO PRN (20:12)
[2018-06-19 05:08] LABS: HEMATOCRIT 31.4 % (36.0-47.0); HEMOGLOBIN 10.2 g/dL (12.0-15.5); MEAN CORPUSCULAR HEMOGLOBIN 22.8 pg (27.0-33.4); MEAN CORPUSCULAR HGB CONC 32.3 g/dL (32.0-36.0); MEAN CORPUSCULAR VOLUME 70 fl (80-97); PLATELET COUNT 347 10^3/uL (150-450); RED BLOOD COUNT 4.46 10^6/uL (3.72-5.28); RED CELL DISTRIBUTION WIDTH 19.7 % (11.5-14.0); WHITE BLOOD COUNT 7.4 10^3/uL (4.0-10.5)
[2018-06-19] MEDS: LANSOPRAZOLE 30 MG TAB.RAP.DR PO SCH (05:20)
[2018-06-19 05:33] LABS: ANION GAP 5 (5-19); BLOOD UREA NITROGEN 19 mg/dL (7-20); CALCIUM 8.3 mg/dL (8.4-10.2); CARBON DIOXIDE 30 mmol/L (22-30); CHLORIDE 88 mmol/L (98-107); GLUCOSE 117 mg/dL (75-110); POTASSIUM 5.1 mmol/L (3.6-5.0)
[2018-06-19 05:34] LABS: ABSOLUTE LYMPHOCYTES# (MANUAL) 1.1 10^3/uL (0.5-4.7); ABSOLUTE MONOCYTES # (MANUAL) 0.2 10^3/uL (0.1-1.4); ABSOLUTE NEUTROPHILS# (MANUAL) 6.1 10^3/uL (1.7-8.2); ANISOCYTOSIS 2+; BASOPHILS % (MANUAL) 0 % (0-2); BURR CELLS 1+; EOSINOPHILS % (MANUAL) 0 % (0-6); LYMPHOCYTES % (MANUAL) 15 % (13-45); MONOCYTES % (MANUAL) 3 % (3-13); PLATELET COMMENT ADEQUATE; POLYCHROMASIA 1+; SEGMENTED NEUTROPHILS % (MAN) 82 % (42-78); TOTAL CELLS COUNTED 100
[2018-06-19] MEDS: IPRATROPIUM/ALBUTEROL 0.5-2.5 MG/3 ML AMPUL NEB SCH ×2 (08:57→15:56)
[2018-06-19] MEDS: APIXABAN 5 MG TABLET PO SCH ×2 (10:47→21:41)
[2018-06-19] MEDS: CEFEPIME 2 GM/D5W RTU 2 GM/50 ML RTUPB IV SCH ×2 (10:47→21:41)
[2018-06-19] MEDS: METOPROLOL SUCCINATE 50 MG TAB.SR.24H PO SCH (10:47)
[2018-06-19] MEDS: MAGNESIUM OXIDE 400 MG TABLET PO SCH ×2 (10:48→18:39)
[2018-06-19] MEDS: SODIUM CHLORIDE 1 GM TABLET PO SCH ×3 (10:48→18:38)
[2018-06-19] MEDS: FUROSEMIDE 40 MG TABLET PO SCH (10:48)
[2018-06-19] MEDS: GUAIFENESIN 600 MG TABLET.SA PO SCH ×2 (10:48→21:41)
[2018-06-19] MEDS: DOCUSATE SODIUM 100 MG CAPSULE PO SCH ×2 (10:48→18:39)
[2018-06-19] MEDS: POLYETHYLENE GLYCOL 3350 POWDER 17 GM/1 PACKET PO SCH ×2 (10:48→18:39)
[2018-06-19] MEDS: POTASSIUM CHLORIDE 20 MEQ/15 ML UDCUP PO SCH ×2 (10:49→18:40)
[2018-06-19] MEDS: TRAMADOL HCL 50 MG TABLET PO PRN (10:52)
--- NOTE | 2018-06-19 17:37 | PDOC PROGRESS REPORT ---
Subjective Progress Note for:: 06/19/18 Subjective:: Continues to feel she is getting better. Denies headache, no seizures. Denies fever or chills, no chest pain or palpitations. Shortness of breath improved. Cough has improved, nonproductive. Reason For Visit: PNEUMONIA,HYPONATREMIA,PAROXYSMAL A-FIB Physical Exam Vital Signs: Temp Pulse Resp BP Pulse Ox 97.9 F 97 19 112/63 99 06/19/18 16:00 06/19/18 16:00 06/19/18 16:00 06/19/18 16:00 06/19/18 16:00 Pulse Oximeter Continuous Start: 06/11/18 17:22 Freq: RTQ4 Status: Complete Protocol: Document 06/13/18 10:54 [facility] (Rec: 06/13/18 10:55 [facility] [id number]) Pulse Oximetry Assessment Oxygen Saturation (92-100) 98 Oxygen Flow Rate (L/min) 2 Oxygen Delivery Method Nasal Cannula Equipment Usage Equipment in Use Continuous SpO2 Machine # N2. Additional RT Notes Other N2. Called to patient's bedside for equipment problems . Intake & Output 06/18/18 06/19/18 06/20/18 06:59 06:59 06:59 Intake Total 1240 2275 50 Balance 1240 2275 50 Weight 51.3 kg 47.3 kg General appearance: PRESENT: no acute distress, hard of hearing Teeth exam: PRESENT: edentulous Respiratory exam: PRESENT: Scattered rhonchi/coarse breath sound bilaterally, unlabored. ABSENT: rales, wheezes Cardiovascular exam: PRESENT: RRR, +S1, +S2 GI/Abdominal exam: PRESENT: hypoactive bowel sounds, soft. ABSENT: tenderness Neurological exam: PRESENT: Hard of hearing. Alert, awake, oriented to person, oriented to place, oriented to situation Psychiatric exam: PRESENT: Normal affect Results Laboratory Results: 06/19/18 04:31 06/19/18 04:31 06/19/18 06/19/18 04:31 04:31 WBC 7.4 RBC 4.46 Hgb 10.2 L Hct 31.4 L MCV 70 L MCH 22.8 L MCHC 32.3 RDW 19.7 H Plt Count 347 Seg Neutrophils % Not Reportable Lymphocytes % Not Reportable Monocytes % Not Reportable Eosinophils % Not Reportable Basophils % Not Reportable Absolute Neutrophils Not Reportable Absolute Lymphocytes Not Reportable Absolute Monocytes Not Reportable Absolute Eosinophils Not Reportable Absolute Basophils Not Reportable Sodium 123.0 L Potassium 5.1 H Chloride 88 L Carbon Dioxide 30 Anion Gap 5 BUN 19 Creatinine 0.58 Est GFR ( Amer) > 60 Est GFR (Non-Af Amer) > 60 Glucose 117 H Calcium 8.3 L Magnesium 1.6 06/12/18 04:45 NT-Pro-B Natriuret Pep 3450 H Impressions: Chest X-Ray 06/12/18 06:00 IMPRESSION: Borderline cardiac size. Right pleural thickening or effusion. Assessment & Plan - Diagnosis (1) Hyponatremia Is this a current diagnosis for this admission?: Yes (2) CAP (community acquired pneumonia) Qualifiers: Laterality: unspecified laterality Qualified Code(s): J18.9 - Pneumonia, unspecified organism Is this a current diagnosis for this admission?: Yes (3) Edema Qualifiers: Edema type: localized Qualified Code(s): R60.0 - Localized edema Is this a current diagnosis for this admission?: Yes (4) Hearing loss Qualifiers: Hearing loss type: unspecified Laterality: bilateral Qualified Code(s): H91.93 - Unspecified hearing loss, bilateral Is this a current diagnosis for this admission?: Yes (5) Hypoxia Is this a current diagnosis for this admission?: Yes (6) Paroxysmal atrial fibrillation Is this a current diagnosis for this admission?: Yes (7) Hypomagnesemia Is this a current diagnosis for this admission?: Yes - Plan Summary Plan Summary: Sodium still quite low. We will continue current regimen including fluid re striction and salt tablets. Nephrology is available today--will consult Dr. Mcneal. For suspected community-acquired pneumonia, sputum culture growing Pseudomonas. Rocephin was discontinued 06/16/18 and cefepime startedwill continue. Blood cultures negative times 5 days. Will also complete azithromycin course. Magnesium level still marginal, will continue p.o. for now. Follow-up Chem-7 in a.m.
--- NOTE | 2018-06-19 18:34 | PDOC CONSULTATION ---
Consultation Consult Date: 06/19/18 Attending physician:: CARLOS WATSON Consult reason:: I was asked to see the patient due to hyponatremia. History of Present Illness Admission Date/PCP: 06/11/18 16:51 SHREE THORNTON MD History of Present Illness: CAROL CHAVEZ is a 82 year old female with history of atrial fibrillation on anticoagulation, congestive heart failure, hypertension, hearing loss, COPD who came in with worsening cough and shortness of breath for 3-4 weeks admitted on 06/10/2018. She is currently being treated with IV antibiotics for her pneumonia. She also presents with hyponatremia with sodium of 115.2 on admission on 1223. Patient is being given Lasix 40 mg p.o. daily, sodium chloride tablets 1 g 3 times a day and is placed on fluid restriction of 1.2 L a day. Despite that the patient's sodium has been very slowly improving and today is only at 123 after almost a week of treatment. Patient was reportedly having decreased appetite is not poor with weight loss of 7 pounds in presentation. Review of records revealed that patient appears to have chronic hyponatremia with a usual range of sodium between 126-133. Last December 2017 she had an episode of exacerbation of the hyponatremia with sodium level going down as low as 117.5 but it seems to have improved accordingly. When I saw the patient today, she seems to be comfortable but she has very difficulty of hearing so she does not seem to understand everything I asked. She is a poor historian as well. She somehow states that she was told not to drink too much water while here in the hospital. When I asked her if she is drinking a lot of water at home she said she is drinking may be a cup of water and a glass of tea but again unsure if she understood what I was asking. She indicated that she used to drink Gatorade. She indicated that she is not lightheaded nor having tremors or confusion. She says she is feeling better currently and is not short of breath since admission. Past Medical History Cardiac Medical History: Reports: Atrial Fibrillation - Paroxysmal Eliquis, CHF- Systolic, Hypertension-primary, Other - Edema with chronic venous insufficiency Pulmonary Medical History: Reports: Bronchitis, Chronic Obstructive Pulmonary Disease (COPD) EENT Medical History: Reports: Cataracts Renal/ Medical History: Reports: Hyponatremia, Nephrolithiasis GI Medical History: Reports: Gastroesophageal Reflux Disease Musculoskeltal Medical History: Reports: Arthritis - Takes tramadol for joint pain Past Surgical History Past Surgical History: Reports: Hysterectomy, Other - Cataract surgery about 3 weeks ago. Back surgery, Bladder Surgery Social History Information Source: [facility] Records Lives with: Family Smoking Status: Never Smoker Frequency of Alcohol Use: None Hx Recreational Drug Use: No Drugs: None Hx Prescription Drug Abuse: No - Advance Directive Resuscitation Status: Do Not Resuscitate Family History Family History: CAD, DM Parental Family History Reviewed: Yes Children Family History Reviewed: Yes Sibling(s) Family History Reviewed.: Yes Medication/Allergy Home Medications: Apixaban [Eliquis] 5 mg PO Q12 01/09/18 Fluticasone Propionate [Flonase Nasal [place] 50 Mcg/[place] 16 gm] 1 spray NASL DAILYP PRN 01/09/18 Lorazepam [Ativan 0.5 mg Tablet] 0.5 mg PO Q12HP PRN 01/09/18 Metoprolol Succinate [Toprol Xl 50 mg Tab.sr] 100 mg PO DAILY 01/09/18 Omeprazole 40 mg PO ACBRKFST 01/09/18 Ondansetron [Zofran Odt 4 mg Tablet] 4 mg PO DAILYP PRN 01/09/18 Tramadol HCl [Ultram 50 mg Tablet] 100 mg PO Q8HP PRN 01/09/18 Albuterol Sulfate [Proair Hfa Inhalation Aerosol 8.5 gm Mdi] 1 puff IH Q4HP PRN 06/12/18 Benzonatate [Tessalon Perles 100 mg Capsule] 100 mg PO Q8HP PRN MDD FILLED 06/05 FOR 10 DAY SUPPLY 06/12/18 Furosemide [Lasix 40 mg Tablet] 40 mg PO BID 06/12/18 Potassium Chloride [Klor-Con 10 Meq Capsule ER] 10 meq PO Q12 06/12/18 Allergies/Adverse Reactions: Iodinated Contrast- Oral and IV Dye [IV Dye, Iodine Containing] Allergy (Severe, Verified 06/11/18 13:57) Anaphylaxis Shellfish * [Shellfish] Allergy (Severe, Verified 06/11/18 13:57) Anaphylaxis walnut Allergy (Severe, Verified 06/11/18 13:57) Anaphylaxis acetaminophen [Acetaminophen] Allergy (Intermediate, Verified 06/11/18 13:57) nervousness Sulfa (Sulfonamide Antibiotics) Allergy (Intermediate, Verified 06/11/18 13:57) Hives meperidine HCl [From Demerol] Allergy (Mild, Verified 06/11/18 13:57) AMS Review of Systems All systems: reviewed and no additional remarkable complaints except as stated Review of Systems: Constitutional: ABSENT: chills, fatigue, fever(s), headache(s), weight gain; positive weight loss Eyes: ABSENT: visual disturbances Ears: ABSENT: hearing changes Cardiovascular: ABSENT: chest pain, dyspnea on exertion, orthropnea, palpitations; positive edema Respiratory: ABSENT: cough, dyspnea, hemoptysis Gastrointestinal: ABSENT: abdominal pain, constipation, diarrhea, hematemesis, hematochezia, nausea, vomiting Genitourinary: ABSENT: dysuria, hematuria Musculoskeletal: ABSENT: joint swelling Integumentary: ABSENT: rash, wounds Neurological: ABSENT: abnormal gait, abnormal speech, confusion, dizziness, focal weakness, numbness, syncope Psychiatric: ABSENT: anxiety, depression Endocrine: ABSENT: cold intolerance, heat intolerance, polydipsia, polyuria Hematologic/Lymphatic: ABSENT: easy bleeding, easy bruising, lymphadenopathy Physical Exam Vital Signs: Temp Pulse Resp BP Pulse Ox 97.9 F 97 19 112/63 99 06/19/18 16:00 06/19/18 16:00 06/19/18 16:00 06/19/18 16:00 06/19/18 16:00 Pulse Oximeter Continuous Start: 06/11/18 17:22 Freq: RTQ4 Status: Complete Protocol: Document 06/13/18 10:54 [facility] (Rec: 06/13/18 10:55 [facility] [id number]) Pulse Oximetry Assessment Oxygen Saturation (92-100) 98 Oxygen Flow Rate (L/min) 2 Oxygen Delivery Method Nasal Cannula Equipment Usage Equipment in Use Continuous SpO2 Machine # N2. Additional RT Notes Other N2. Called to patient's bedside for equipment problems . Intake & Output 06/18/18 06/19/18 06/20/18 06:59 06:59 06:59 Intake Total 1240 2275 50 Balance 1240 2275 50 Weight 51.3 kg 47.3 kg Exam: General appearance: No acute distress, cooperative, well-developed, well- nourished Head exam: PRESENT: atraumatic, normocephalic Eye exam: PRESENT: Conjunctiva pale, EOMI, PERRLA. ABSENT: conjunctival injection, scleral icterus Mouth exam: PRESENT: moist, neck supple, tongue midline Neck exam: PRESENT: full ROM. ABSENT: carotid bruit, JVD, lymphadenopathy, thyromegaly Respiratory exam: PRESENT: Coarse breath sounds to auscultation bilaterally. ABSENT: rales, rhonchi, stridor, wheezes Cardiovascular exam: PRESENT: Irregularly irregular, +S1, +S2. ABSENT: systolic murmur Pulses: PRESENT: normal radial pulses, normal dorsalis pedis pulses GI/Abdominal exam: PRESENT: normal bowel sounds, soft. ABSENT: guarding, mass, tenderness Rectal exam: Deferred Extremities exam: PRESENT: full ROM. Grade 1 bilateral pitting edema ABSENT: ca lf tenderness Musculoskeletal: PRESENT: full ROM. ABSENT: deformity Neurological exam: PRESENT: alert, Awake, difficulty of hearing, reflexes normal, CN II-XII grossly intact. ABSENT: motor sensory deficit Psychiatric exam: PRESENT: appropriate affect, normal mood. ABSENT: homicidal ideation, suicidal ideation Skin exam: PRESENT: intact, dry, warm. ABSENT: rash Results Laboratory Results: 06/19/18 04:31 06/19/18 04:31 06/19/18 06/19/18 04:31 04:31 WBC 7.4 RBC 4.46 Hgb 10.2 L Hct 31.4 L MCV 70 L MCH 22.8 L MCHC 32.3 RDW 19.7 H Plt Count 347 Seg Neutrophils % Not Reportable Lymphocytes % Not Reportable Monocytes % Not Reportable Eosinophils % Not Reportable Basophils % Not Reportable Absolute Neutrophils Not Reportable Absolute Lymphocytes Not Reportable Absolute Monocytes Not Reportable Absolute Eosinophils Not Reportable Absolute Basophils Not Reportable Sodium 123.0 L Potassium 5.1 H Chloride 88 L Carbon Dioxide 30 Anion Gap 5 BUN 19 Creatinine 0.58 Est GFR ( Amer) > 60 Est GFR (Non-Af Amer) > 60 Glucose 117 H Calcium 8.3 L Magnesium 1.6 06/12/18 04:45 NT-Pro-B Natriuret Pep 3450 H Impressions: Chest X-Ray 06/12/18 06:00 IMPRESSION: Borderline cardiac size. Right pleural thickening or effusion. Assessment & Plan - Diagnosis (1) Hyponatremia Is this a current diagnosis for this admission?: Yes Plan: Patient is slightly in hypervolemic state with lower extremity edema. Chest x- ray is clear for any evidence of malignancy. We will check the patient's urine osmolality, uric acid, TSH and cortisol level tomorrow. I will give the patient a dose of tolvaptan 15 mg x1 dose today. Recheck labs tomorrow. (2) CAP (community acquired pneumonia) Qualifiers: Laterality: unspecified laterality Qualified Code(s): J18.9 - Pneumonia, unspecified organism Is this a current diagnosis for this admission?: Yes Plan: Sputum culture is now growing pseudomonas aeruginosa. Defer to hospitalist se patterson. (3) Edema Qualifiers: Edema type: localized Qualified Code(s): R60.0 - Localized edema Is this a current diagnosis for this admission?: Yes (4) Hearing loss Qualifiers: Hearing loss type: unspecified Laterality: bilateral Qualified Code(s): H91.93 - Unspecified hearing loss, bilateral Is this a current diagnosis for this admission?: Yes (5) Paroxysmal atrial fibrillation Is this a current diagnosis for this admission?: Yes - Notes Notes: Thank you very much for this consultation. I will follow the patient with you. - Time Time Spent: 50 to 70 Minutes
[2018-06-19] MEDS ORDERED: TOLVAPTAN 15 MG TABLET PO ONE (20:00)
[2018-06-20] MEDS: IPRATROPIUM/ALBUTEROL 0.5-2.5 MG/3 ML AMPUL NEB SCH ×4 (00:09→23:53)
[2018-06-20] MEDS: LANSOPRAZOLE 30 MG TAB.RAP.DR PO SCH (05:33)
[2018-06-20 06:16] LABS: ANION GAP 6 (5-19); BLOOD UREA NITROGEN 18 mg/dL (7-20); CALCIUM 8.6 mg/dL (8.4-10.2); CARBON DIOXIDE 33 mmol/L (22-30); CHLORIDE 91 mmol/L (98-107); GLUCOSE 115 mg/dL (75-110); POTASSIUM 4.7 mmol/L (3.6-5.0); SODIUM 130.4 mmol/L (137-145)
[2018-06-20] MEDS: DOCUSATE SODIUM 100 MG CAPSULE PO SCH ×2 (10:42→17:57)
[2018-06-20] MEDS: METOPROLOL SUCCINATE 50 MG TAB.SR.24H PO SCH (10:43)
[2018-06-20] MEDS: POLYETHYLENE GLYCOL 3350 POWDER 17 GM/1 PACKET PO SCH ×2 (10:43→17:55)
[2018-06-20] MEDS: POTASSIUM CHLORIDE 20 MEQ/15 ML UDCUP PO SCH ×2 (10:50→17:57)
[2018-06-20] MEDS: GUAIFENESIN 600 MG TABLET.SA PO SCH ×2 (10:51→23:02)
[2018-06-20] MEDS: FUROSEMIDE 40 MG TABLET PO SCH (10:51)
[2018-06-20] MEDS: MAGNESIUM OXIDE 400 MG TABLET PO SCH ×2 (10:52→17:55)
[2018-06-20] MEDS: APIXABAN 5 MG TABLET PO SCH ×2 (10:53→23:02)
[2018-06-20] MEDS: CEFEPIME 2 GM/D5W RTU 2 GM/50 ML RTUPB IV SCH ×2 (10:54→23:05)
[2018-06-20] MEDS ORDERED: METOPROLOL SUCCINATE 50 MG TAB.SR.24H PO ONE ×2 (11:01→14:45)
[2018-06-20] MEDS: SODIUM CHLORIDE 1 GM TABLET PO SCH ×3 (11:03→17:57)
--- NOTE | 2018-06-20 16:18 | PDOC PROGRESS REPORT ---
Subjective Progress Note for:: 06/20/18 Subjective:: Patient is doing well and has no complaints. Said she wants to go home. Reason For Visit: PNEUMONIA,HYPONATREMIA,PAROXYSMAL A-FIB Physical Exam Vital Signs: Temp Pulse Resp BP Pulse Ox 97.8 F 98 20 119/75 97 06/20/18 12:11 06/20/18 12:11 06/20/18 12:11 06/20/18 12:11 06/20/18 12:11 Pulse Oximeter Continuous Start: 06/11/18 17:22 Freq: RTQ4 Status: Complete Protocol: Document 06/13/18 10:54 [facility] (Rec: 06/13/18 10:55 [facility] [id number]) Pulse Oximetry Assessment Oxygen Saturation (92-100) 98 Oxygen Flow Rate (L/min) 2 Oxygen Delivery Method Nasal Cannula Equipment Usage Equipment in Use Continuous SpO2 Machine # N2. Additional RT Notes Other N2. Called to patient's bedside for equipment problems . Intake & Output 06/19/18 06/20/18 06/21/18 06:59 06:59 06:59 Intake Total 2275 1288 50 Output Total 550 Balance 2275 738 50 Weight 47.3 kg Exam: General appearance: PRESENT: no acute distress, cooperative, well-developed, well-nourished Head exam: PRESENT: atraumatic, normocephalic Eye exam: PRESENT: conjunctiva pink, PERRLA. ABSENT: scleral icterus Neck exam: ABSENT: JVD Respiratory exam: PRESENT: Mildly coarse breath sounds. ABSENT: crackles, rales, rhonchi, unlabored, wheezes Cardiovascular exam: PRESENT: Irregularly irregular rate rhythm -+S1, +S2. ABSENT: diastolic murmur, systolic murmur GI/Abdominal exam: PRESENT: normal bowel sounds, soft. ABSENT: guarding, mass, tenderness Extremities exam: Grade 1 bilateral lower extremity edema Neurological exam: PRESENT: alert, awake, oriented to person, place and time. Skin exam: PRESENT: dry, warm, Results Laboratory Results: 06/19/18 04:31 06/20/18 05:15 06/20/18 06/20/18 06/20/18 04:25 05:15 05:15 Sodium 130.4 L Potassium 4.7 Chloride 91 L Carbon Dioxide 33 H Anion Gap 6 BUN 18 Creatinine 0.61 Est GFR ( Amer) > 60 Est GFR (Non-Af Amer) > 60 Glucose 115 H Uric Acid 2.0 L Calcium 8.6 TSH 2.23 Urine Osmolality 122 L 06/12/18 04:45 NT-Pro-B Natriuret Pep 3450 H Impressions: Chest X-Ray 06/12/18 06:00 IMPRESSION: Borderline cardiac size. Right pleural thickening or effusion. Assessment & Plan - Diagnosis (1) Hyponatremia Is this a current diagnosis for this admission?: Yes Plan: Her urine osmolality is relatively low at 122 which is an appropriate response to her hyponatremic state. Her TSH is normal and her cortisol is over normal limits. Her uric acid is low at around 2. She is still in hypervolemic state but SIADH cannot be ruled out. Sodium level is improved at 130 today after a dose of tolvaptan yesterday. I will give another dose of tolvaptan again today. If sodium level continues to improve tomorrow I think she can be safely discharged tomorrow. Instruct patient's sisters and niece that if she follows up with her primary care doctor which is scheduled for Tuesday that she needs to have at least a BMP checked to check her sodium. (2) CAP (community acquired pneumonia) Qualifiers: Laterality: unspecified laterality Qualified Code(s): J18.9 - Pneumonia, unspecified organism Is this a current diagnosis for this admission?: Yes (3) Edema Qualifiers: Edema type: localized Qualified Code(s): R60.0 - Localized edema Is this a current diagnosis for this admission?: Yes (4) Hearing loss Qualifiers: Hearing loss type: unspecified Laterality: bilateral Qualified Code(s): H91.93 - Unspecified hearing loss, bilateral Is this a current diagnosis for this admission?: Yes (5) Paroxysmal atrial fibrillation Is this a current diagnosis for this admission?: Yes - Time Time with patient: 15-25 minutes
[2018-06-20] MEDS ORDERED: TOLVAPTAN 15 MG TABLET PO ONE (17:00)
--- NOTE | 2018-06-20 17:48 | PDOC PROGRESS REPORT ---
Subjective Progress Note for:: 06/20/18 Subjective:: The patient is an 82-year-old female with a past medical history of PAF, CHF, hypertension, COPD, GERD, arthritis, and anemia who was admitted 06/11/2018 with community-acquired pneumonia and hyponatremia. Patient was seen on morning rounds with her family members present. She is noted to be resting in bed comfortably on supplemental oxygen via nasal cannula; to begin the weaning process today. The patient states that she is feeling in good health; immediately asks to be discharged home. She denies fever, chills, chest pain, palpitations, dyspnea, cough, abdominal pain, nausea vomiting and diarrhea. She has no other questions or concerns today. No concerns per nursing. Reason For Visit: PNEUMONIA,HYPONATREMIA,PAROXYSMAL A-FIB Physical Exam Vital Signs: Temp Pulse Resp BP Pulse Ox 97.9 F 102 H 16 105/82 99 06/20/18 16:00 06/20/18 16:00 06/20/18 16:00 06/20/18 16:00 06/20/18 16:00 Pulse Oximeter Continuous Start: 06/11/18 17:22 Freq: RTQ4 Status: Complete Protocol: Document 06/13/18 10:54 [facility] (Rec: 06/13/18 10:55 [facility] [id number]) Pulse Oximetry Assessment Oxygen Saturation (92-100) 98 Oxygen Flow Rate (L/min) 2 Oxygen Delivery Method Nasal Cannula Equipment Usage Equipment in Use Continuous SpO2 Machine # N2. Additional RT Notes Other N2. Called to patient's bedside for equipment problems . Intake & Output 06/19/18 06/20/18 06/21/18 06:59 06:59 06:59 Intake Total 2275 1288 670 Output Total 550 Balance 2273 732 670 Weight 47.3 kg General appearance: PRESENT: no acute distress, cooperative, hard of hearing, thin, well-developed Head exam: PRESENT: atraumatic, normocephalic Eye exam: PRESENT: conjunctiva pink, EOMI, PERRLA. ABSENT: scleral icterus Mouth exam: PRESENT: moist, tongue midline Teeth exam: PRESENT: edentulous Neck exam: ABSENT: carotid bruit, JVD, lymphadenopathy, thyromegaly Respiratory exam: PRESENT: rhonchi - Slight, occasional; improves with cough, symmetrical, unlabored. ABSENT: rales, wheezes Cardiovascular exam: PRESENT: RRR, +S1, +S2. ABSENT: diastolic murmur, rubs, systolic murmur Pulses: PRESENT: normal dorsalis pedis pul Vascular exam: PRESENT: normal capillary refill GI/Abdominal exam: PRESENT: normal bowel sounds, soft. ABSENT: distended, guarding, mass, organolmegaly, rebound, tenderness Rectal exam: PRESENT: deferred Extremities exam: PRESENT: full ROM. ABSENT: calf tenderness, clubbing, pedal edema Neurological exam: PRESENT: alert, awake, oriented to person, oriented to place, oriented to time, oriented to situation, CN II-XII grossly intact. ABSENT: motor sensory deficit Psychiatric exam: PRESENT: appropriate affect, normal mood. ABSENT: homicidal ideation, suicidal ideation Skin exam: PRESENT: dry, intact, warm. ABSENT: cyanosis, rash Results Laboratory Results: 06/19/18 04:31 06/20/18 05:15 06/20/18 06/20/18 06/20/18 04:25 05:15 05:15 Sodium 130.4 L Potassium 4.7 Chloride 91 L Carbon Dioxide 33 H Anion Gap 6 BUN 18 Creatinine 0.61 Est GFR ( Amer) > 60 Est GFR (Non-Af Amer) > 60 Glucose 115 H Uric Acid 2.0 L Calcium 8.6 TSH 2.23 Urine Osmolality 122 L 06/12/18 04:45 NT-Pro-B Natriuret Pep 3450 H Impressions: Chest X-Ray 06/12/18 06:00 IMPRESSION: Borderline cardiac size. Right pleural thickening or effusion. Assessment & Plan - Diagnosis (1) Hyponatremia Is this a current diagnosis for this admission?: Yes Plan: Improved; sodium is elevated to 130 today from a low of 115. Nephrology has been consulted; appreciate Dr. Mcneal's assistance. Does approve discharge to home tomorrow with outpatient follow-up labs in 1 week if sodium remains stable. Patient has been provided Tolvaptan x2 per nephrology. Continue Sodium replacement. Regular diet; fluid restricted to 1200 ml/daily. (2) Paroxysmal atrial fibrillation Is this a current diagnosis for this admission?: Yes Plan: Toprol-XL 150 mg increased to 200 mg daily secondary to persistent tachycardia greater than 115. Continue home dose of Eliquis. (3) CAP (community acquired pneumonia) Qualifiers: Laterality: unspecified laterality Qualified Code(s): J18.9 - Pneumonia, unspecified organism Is this a current diagnosis for this admission?: Yes Plan: Resolved; patient now maintaining oxygen saturations on room air. Sputum culture positive for Pseudomonas. Blood cultures are negative at 5 days. The patient has completed a full dose of azithromycin. Patient was initially on Rocephin through 06/08/2018 at which time she was transitioned to cefepime. Has received a total of 8 days of cephalosporins. (4) Hypertension Qualifiers: Hypertension type: essential hypertension Qualified Code(s): I10 - Essential (primary) hypertension Is this a current diagnosis for this admission?: Yes Plan: Blood pressures are acceptable for age. Continue metoprolol and furosemide. (5) Hypomagnesemia Is this a current diagnosis for this admission?: Yes Plan: Replete. - Time Time Spent with patient: 15-24 minutes Medications reviewed and adjusted accordingly: Yes Anticipated discharge: Home with Homehealth Within: within 24 hours
[2018-06-21] MEDS: LANSOPRAZOLE 30 MG TAB.RAP.DR PO SCH (05:32)
[2018-06-21 08:17] LABS: ANION GAP 6 (5-19); BLOOD UREA NITROGEN 20 mg/dL (7-20); CALCIUM 8.7 mg/dL (8.4-10.2); CARBON DIOXIDE 29 mmol/L (22-30); CHLORIDE 97 mmol/L (98-107); GLUCOSE 132 mg/dL (75-110); SODIUM 131.5 mmol/L (137-145)
[2018-06-21] MEDS: IPRATROPIUM/ALBUTEROL 0.5-2.5 MG/3 ML AMPUL NEB SCH ×2 (08:48→16:12)
[2018-06-21] MEDS ORDERED: METOPROLOL SUCCINATE 50 MG TAB.SR.24H PO SCH (10:00)
[2018-06-21] MEDS: GUAIFENESIN 600 MG TABLET.SA PO SCH (10:16)
[2018-06-21] MEDS: FUROSEMIDE 40 MG TABLET PO SCH (10:16)
[2018-06-21] MEDS: DOCUSATE SODIUM 100 MG CAPSULE PO SCH (10:16)
[2018-06-21] MEDS: MAGNESIUM OXIDE 400 MG TABLET PO SCH (10:16)
[2018-06-21] MEDS: APIXABAN 5 MG TABLET PO SCH (10:17)
[2018-06-21] MEDS: POLYETHYLENE GLYCOL 3350 POWDER 17 GM/1 PACKET PO SCH (10:17)
[2018-06-21] MEDS: CEFEPIME 2 GM/D5W RTU 2 GM/50 ML RTUPB IV SCH (10:18)
[2018-06-21] MEDS: SODIUM CHLORIDE 1 GM TABLET PO SCH ×2 (10:21→14:37)
[2018-06-21] MEDS: POTASSIUM CHLORIDE 20 MEQ/15 ML UDCUP PO SCH (14:35)
--- NOTE | 2018-06-21 17:16 | EKG REPORT ---
SEVERITY:- ABNORMAL ECG - ATRIAL FIBRILLATION : Confirmed by: Ching Márquez MD 21-Jun-2018 17:16:26
[2018-06-21 17:23] VITALS: BP 117/68
--- NOTE | 2018-06-23 17:25 | PDOC DISCHARGE SUMMARY ---
General - Admit/Disc Date/PCP Admission Date/Primary Care Provider: 06/11/18 16:51 SHREE THORNTON MD Discharge Date: 06/21/18 - Discharge Diagnosis (1) Hyponatremia Is this a current diagnosis for this admission?: Yes Summary: Improved; sodium is elevated to 131.5 today from a low of 115. Nephrology was consulted; appreciate Dr. Mcneal's assistance. Dr. Mcneal has cleared the patient for discharge to home with follow up PCP visit and lab work in 1 week. Laboratory evaluation was unable to rule out SIADH. Patient was provided Tolvaptan x2 per nephrology. She is discharged on a regular diet with 1200 mL fluid restriction and Sodium replacement tablets. The patient's family members have been instructed on the importance of fluid restriction and close follow up visit. The patient is asymptomatic, hemodynamically stable, maintaining oxygen saturations on room air, and has returned to her baseline mental and functional status per family members. She has been provided prescriptions for furosemide, metoprolol, sodium chloride tablets, and a front wheeled walker. Discharge planning has assisted in setting up the patient with home health nursing and physical therapy. She is advised to follow-up with her primary care provider within 1 week and to return to the emergency department as needed for any concerning symptoms. (2) Paroxysmal atrial fibrillation Is this a current diagnosis for this admission?: Yes Summary: Continue Toprol-XL 200 mg daily. At rest; patient is rate controlled 70-90s; she briefly becomes tachcardic with ambulation (120s), however, her heart rate rapidly returns to normal with rest. Recommend continuing home dose Eliquis. (3) CAP (community acquired pneumonia) Is this a current diagnosis for this admission?: Yes Summary: Resolved; patient now maintaining oxygen saturations on room air. Sputum culture positive for Pseudomonas. Blood cultures are negative at 5 days. The patient has completed a full dose of azithromycin. Patient was initially on Rocephin through 06/08/2018 at which time she was transitioned to cefepime. She received a total of 8 days of appropriate cephalosporin therapy. No indication for continued antibiotics at discharge. (4) Hypertension Is this a current diagnosis for this admission?: Yes Summary: Blood pressures are acceptable for age. Continue metoprolol and furosemide. (5) Hypomagnesemia Is this a current diagnosis for this admission?: Yes Summary: Replete. - Additional Information Resuscitation Status: Do Not Resuscitate Discharge Diet: Regular Discharge Activity: Activity As Tolerated, Balance Activity w/Rest, Weigh Daily Prescriptions: Furosemide [Lasix 40 mg Tablet] 40 mg PO DAILY #30 tablet Metoprolol Succinate [Toprol Xl] 200 mg PO DAILY #30 tab.er.24h Sodium Chloride [Sodium Chloride 1 gm Tablet] 1 gm PO BID #30 tablet Walker [Folding Walker] 1 each ASDIR PRN #1 each PRN Reason: Home Medications: Apixaban [Eliquis] 5 mg PO Q12 01/09/18 Fluticasone Propionate [Flonase Nasal [place] 50 Mcg/[place] 16 gm] 1 spray NASL DAILYP PRN 01/09/18 Omeprazole 40 mg PO ACBRKFST 01/09/18 Albuterol Sulfate [Proair HFA Inhalation Aerosol 8.5 gm MDI] 1 puff IH Q4HP PRN 06/12/18 Potassium Chloride [Klor-Con 10 Meq Capsule ER] 10 meq PO Q12 06/12/18 Furosemide [Lasix 40 mg Tablet] 40 mg PO DAILY #30 tablet 06/21/18 Metoprolol Succinate [Toprol Xl] 200 mg PO DAILY #30 tab.er.24h 06/21/18 Sodium Chloride [Sodium Chloride 1 gm Tablet] 1 gm PO BID #30 tablet 06/21/18 Walker [Folding Walker] 1 each ASDIR PRN #1 each 06/21/18 History of Present Illness History of Present Illness: Per H&P by Dr. Molina: CAROL CHAVEZ is a 82 year old female who, according to her sisters, has not been feeling well for several weeks. In addition to a worsening cough the patient has experienced weight loss (7 pounds over the last week) due to very poor appetite. She had a similar presentation in December of this year. She tends to minimize symptoms but her sisters seem to be more accurate historians. Despite denial of the patient's sisters report that she did experience chills with possible fever. With her poor appetite they try to utilize Gatorade. She was compliant with her Lasix and potassium during this time. She did experience orthopnea. She does have chronic severe anemia and varicose veins with venous insufficiency. In addition to her symptoms the patient presented with an elevated white blood cell count as well as hyponatremia. The patient has had hyponatremia in the past. In fact in April her serum sodium was 125. Physical Exam Vital Signs: Temp Pulse Resp BP Pulse Ox 98.1 F 91 16 117/68 97 06/21/18 17:21 06/21/18 17:21 06/21/18 17:21 06/21/18 17:21 06/21/18 17:21 Pulse Oximeter Continuous Start: 06/11/18 17:22 Freq: RTQ4 Status: Complete Protocol: Document 06/13/18 10:54 [facility] (Rec: 06/13/18 10:55 [facility] [id number]) Pulse Oximetry Assessment Oxygen Saturation (92-100) 98 Oxygen Flow Rate (L/min) 2 Oxygen Delivery Method Nasal Cannula Equipment Usage Equipment in Use Continuous SpO2 Machine # [id number]. Additional RT Notes Other N2. Called to patient's bedside for equipment problems . Intake & Output 06/22/18 06/23/18 06/24/18 06:59 06:59 06:59 Intake Total 908 Balance 908 General appearance: PRESENT: no acute distress, hard of hearing, thin, well- developed Head exam: PRESENT: atraumatic, normocephalic Eye exam: PRESENT: conjunctiva pink, EOMI, PERRLA. ABSENT: scleral icterus Ear exam: PRESENT: normal external ear exam Mouth exam: PRESENT: moist, tongue midline Neck exam: ABSENT: carotid bruit, JVD, lymphadenopathy, thyromegaly Respiratory exam: PRESENT: clear to auscultation lino, rhonchi, symmetrical, unlabored. ABSENT: rales, wheezes Cardiovascular exam: PRESENT: RRR, +S1, +S2. ABSENT: diastolic murmur, rubs, systolic murmur Pulses: PRESENT: normal dorsalis pedis pul Vascular exam: PRESENT: normal capillary refill GI/Abdominal exam: PRESENT: normal bowel sounds, soft. ABSENT: distended, guarding, mass, organolmegaly, rebound, tenderness Rectal exam: PRESENT: deferred Extremities exam: PRESENT: full ROM. ABSENT: calf tenderness, clubbing, pedal edema Neurological exam: PRESENT: alert, awake, oriented to person, oriented to place, oriented to time, oriented to situation, CN II-XII grossly intact, other - Intermittently pleasantly confused.. ABSENT: motor sensory deficit Psychiatric exam: PRESENT: appropriate affect, normal mood. ABSENT: homicidal ideation, suicidal ideation Skin exam: PRESENT: dry, intact, warm. ABSENT: cyanosis, rash Results Laboratory Results: 06/19/18 04:31 06/21/18 06:39 06/12/18 06/21/18 04:45 06:39 NT-Pro-B Natriuret Pep 3450 H 4990 H Impressions: Chest X-Ray 06/12/18 06:00 IMPRESSION: Borderline cardiac size. Right pleural thickening or effusion. Qualifiers - * PATIENT BEING DISCHARGED WITH ANY OF THE FOLLOWING DIAGNOSIS: No Plan Discharge Plan: Discharged home in the care of family members with home health nursing. Follow-up with primary care provider within 1 week; recommend repeat BMP at that time to evaluate sodium. Return to the emergency department as needed for concerning symptoms. Time Spent: Less than 30 Minutes
== END 2018-06-21 18:10 | disposition home health service (06) | DRG 178 ==
LOC: ER 13:54 → EH 16:51 → 4S 19:00
PROVIDERS: ADMIT Internal Medicine; ATTEND Internal Medicine
PROC: 3E0F3GC Introduction of Other Therapeutic Substance into Respiratory Tract, Percutaneous Approach (ICD-10-PCS; principal; 2018-06-11)
DX: J15.1 Pneumonia due to Pseudomonas (principal); E87.1 Hypo-osmolality and hyponatremia; I50.20 Unspecified systolic (congestive) heart failure; I48.0 Paroxysmal atrial fibrillation; E83.42 Hypomagnesemia; J44.9 Chronic obstructive pulmonary disease, unspecified; I11.0 Hypertensive heart disease with heart failure; D64.9 Anemia, unspecified; Z66 Do not resuscitate; I83.90 Asymptomatic varicose veins of unspecified lower extremity; I87.2 Venous insufficiency (chronic) (peripheral); K21.9 Gastro-esophageal reflux disease without esophagitis; M19.90 Unspecified osteoarthritis, unspecified site; R09.02 Hypoxemia; R60.9 Edema, unspecified; H91.93 Unspecified hearing loss, bilateral; Z79.01 Long term (current) use of anticoagulants; Z82.49 Family history of ischemic heart disease and other diseases of the circulatory system
CPT/HCPCS: 36415; 71045; 71046; 80048; 80053; 81001; 82533; 83735; 83880; 83935; 84133; 84300; 84443; 84550; 85025; 85027; 87040; 87070; 87077; 87086; 87186; 87205; 87804; 93005; 93010; 94640; 94762; 99284; A9270-GY; J0456; J0692; J0696; J3475; J3480; J3490; J7060; J7620